=== PATIENT | male | born 1955 | race Caucasian/White ===

== ENCOUNTER 2019-08-08 05:52 | Day surgery (SDC) | payer MEDICARE, OTHER, SELFPAY ==
--- NOTE | 2019-08-08 06:10 | XR_ITS ---
WS: [id number] PORTABLE CHEST HISTORY: Preoperative for planned dialysis catheter removal COMPARISON: None available. Dialysis catheter present through the RIGHT subclavian vein. Numerous sternotomy sutures. The superio rmost 3 are fractured. Mild pulmonary congestion and hyperexpansion. No pleural effusion or pneumothorax. Cardiac size: Moderately enlarged cardiac silhouette. Mediastinum/Aorta: Mild atherosclerosis aorta. No osseous abnormality seen. XR/XR chest 1V portable [id number] IMPRESSION: 1. Mild pulmonary venous congestion and cardiomegaly. 2. RIGHT subclavian dialysis catheter in good position.
[2019-08-08] MEDS: sodium chloride 0.9% 1,000 ML 30 ML IV (06:15)
[2019-08-08 06:33] VITALS: BP 144/93; PULSE 83; RESP 20; TEMP 36.9; O2SAT 95
[2019-08-08 06:46] LABS: Glucose Point of Care 199 mg/dL (70-110)
[2019-08-08 06:49] LABS: Basophils % 0.2 %; Eosinophils # 0.1 10^3/uL (0.0-0.8); Eosinophils % 1.8 %; Hematocrit 31.3 % (42.0-52.0); Hemoglobin 9.9 g/dL (11.7-16.6); Lymphocytes # 1.3 10^3/uL (0.8-4.8); Lymphocytes % 19.1 %; Mean Corpuscular HGB Conc 31.6 g/dL (30.0-36.0); Mean Corpuscular Hemoglobin 31.9 pg (28.0-34.0); Mean Platelet Volume 9.5 fL (7.4-10.4); Monocytes # 0.9 10^3/uL (0.2-0.9); Monocytes % 13.4 %; Neutrophils # 4.3 10^3/uL (1.8-7.7); Nucleated Red Blood Cells % 0 %; Platelet Count 169 10^3/cmm (130-400); Red Cell Distribution Width 16.9 % (12.1-15.1); White Blood Count 6.6 10^3/uL (4.0-10.0)
[2019-08-08 06:58] LABS: INR 0.97 (0.8-1.2)
[2019-08-08 07:06] LABS: Anion Gap 23.6 (5-19); Blood Urea Nitrogen 67 mg/dL (8-23); Calcium 9.9 mg/dL (8.5-10.5); Carbon Dioxide 22 mmol/L (22-29); Chloride 98 mmol/L (98-107); Glomerular Filtration Rate 8.7 mL/min (90-130); Glucose 219 mg/dL (65-115); Osmolality Calculated 294 mOsm/kg (285-295); Potassium 4.6 mmol/L (3.5-5.1); Sodium 139 mmol/L (136-145)
--- NOTE | 2019-08-08 07:49 | P.HP_ITS ---
Providers/Chief Complaint Primary Care Provider: Bj Mccracken Chief Complaint: Split Jony Catheter Removal History of Present Illness Delonte Bahena is a 64 year old male with end-stage renal disease currently being dialyzed through a successful placed autogenous right upper extremity AV fistula. He has a right IJ tunneled dialysis catheter that is no longer required and removal has been requested. Review of Systems Narrative: He does complain of trouble sleeping since initiation of dialysis and also complains of nighttime leg cramps. 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 Mccracken, this coming Tuesday. Const: Denies: fever, chills, change in appetite, change in weight, fatigue or night sweats Eyes: Denies: change in vision or blurry vision ENMT: Denies: painful swallowing or hoarseness Card: Denies: chest pain, palpitations, irregular heart rhythm or edema Resp: Denies: shortness of breath or productive cough GI: Denies: abdominal pain, nausea, vomiting, difficulty swallowing, heart burn/indigestion or change in bowel habits : Denies: difficulty urinating, painful urination, urinary frequency, urinary urgency or urinary hesitancy Musc: Denies: extremity pain or extremity swelling Skin/Breast: Denies: rash Neuro: Denies: headache, numbness in extremities, weakness in extremities or changes in sensation Psych: Denies: anxiety, depression or change in appetite Endo: Denies: excessive urination, excessive thirst or cold intolerance Sohail/Lymph: Denies: easy bruising, easy bleeding, petechiae or enlarged lymph nodes Medications/Allergies Home Medications Medication Instructions Recorded Confirmed Last Taken Type Levemir FlexTouch U-100 Insuln 80 units SUBCUT BID 08/07/19 08/08/19 08/07/19 History Novolog Flexpen U-100 Insulin 18 units SUBCUT QID 08/07/19 08/08/19 08/07/19 History Plavix 75 mg PO BEDTIME 08/07/19 08/07/19 08/03/19 20:00 History Renvela See Rx Instructions .ROUTE .COMPLEX 08/07/19 08/08/19 08/07/19 History allopurinol 300 mg PO DAILY 08/07/19 08/08/19 08/02/19 History cyclosporine 100 mg PO BID 08/07/19 08/08/19 08/07/19 History famotidine 20 mg PO DAILY 08/07/19 08/08/19 08/07/19 History prednisone 5 mg PO DAILY 08/07/19 08/08/19 08/07/19 History rosuvastatin 20 mg PO DAILY 08/07/19 08/08/19 08/07/19 History torsemide 20 mg PO BID 08/07/19 08/08/19 08/07/19 History Allergies Allergy/AdvReac Type Severity Reaction Status Date / Time Iodinated Contrast Media Allergy Intermediate ADR-Itching Unverified 08/08/19 06:17 PFSH PFSH: Medical History (Updated 08/08/19 @ 07:52 by Pritesh Marroquin MD) Diabetes mellitus, type II Surgical History (Updated 08/08/19 @ 07:53 by Pritesh Marroquin MD) Hx of arteriovenostomy for renal dialysis Hx of kidney transplant Vital Signs Vitals Signs: Last Vital Signs Temp 98.4 F 08/08/19 06:33 Pulse 83 08/08/19 06:33 Resp 20 H 08/08/19 06:33 BP 144/93 08/08/19 06:33 Pulse Ox 95 08/08/19 06:33 Weight: Weight last 48 hrs Weight 250 lb Physical Exam Const: COMMON NORMALS: oriented x3 and alert ORIENTATION/CONSCIOUSNESS: Yes oriented to person, Yes oriented to place and Yes oriented to time HENMT: COMMON NORMALS: normocephalic HEAD & SCALP: normocephalic; no cranial bruits Neck/C-Spine: COMMON NORMALS: full ROM, supple, no JVD and no carotid bruits GENERAL: Yes trachea midline CERVICAL SPINE: Yes cervical ROM normal Chest: COMMONS NORMALS: inspection of chest normal (Tunneled right IJ catheter with exit of the anterior chest wall) and palpation of chest normal Resp: COMMON NORMALS: normal respiratory effort, no use of accessory muscles, clear to auscultation bilaterally and percussion normal EFFORT & INSPECTION: Yes able to speak in complete sentences and Yes symmetric chest movement AUSCULTATION: clear to auscultation bilaterally PERCUSSION: percussion normal Cardio: COMMON NORMALS: no JVD, regular rate, regular rhythm, S1 normal heart sound, S2 normal heart sound, no gallops, no murmurs, no rub and peripheral pul ses 2+ throughout JUGULAR VENOUS DISTENTION: no JVD RATE: regular rate RHYTHM: regular rhythm HEART SOUNDS: S1 normal and S2 normal PERIPHERAL PULSES: pulses 2+ throughout Extremity: OTHER: Well-functioning right autogenous radiocephalic fistula Neuro: COMMON NORMALS: oriented x3, no focal motor deficits and no sensory deficits noted SENSORIUM/ORIENTATION: Yes alert, Yes oriented to person, Yes oriented to place and Yes oriented to time GAIT: Yes normal gait A&P Assessment and plan (1) Hx of arteriovenostomy for renal dialysis: Well-functioning right upper extremity AV fistula. Tunneled right IJ dialysis catheter lower required. Removal is been requested. Details risk the procedure were carefully and frankly discussed with Mr. Bahena and his . Potential for bleeding complications, fracture of the catheter, chest wall injury or major vascular injury were frankly discussed. Proper consents have been provided for review and signature. Status: Acute Code(s): Z99.2 - Dependence on renal dialysis Coding Level of Care Code Acute Home Assessment Nurse for [facility] Fwd Exam Detailed Medical Decision Making Moderate Complexity Diagnoses Hx of arteriovenostomy for renal dialysis Z99.2 Time Spent (min) 25
--- NOTE | 2019-08-08 07:59 | P.ANESASSM_ITS ---
Pre-Anesthetic Assessment Pre-Anesthetic Assessment: Height/Weight: Height 1.8 m Weight 113.398 kg Temp Pulse Resp BP Pulse Ox 98.4 F 83 20 H 144/93 95 08/08/19 06:33 08/08/19 06:33 08/08/19 06:33 08/08/19 06:33 08/08/19 06:33 Preop Diagnosis: removal of dialysis catheter Proposed Procedure: Operation Date: 08/08/19 08:10 Proposed Procedures p Split Jony Catheter Removal(Not Applicable) - Pritesh Marroquin MD Last intake: Intake Last Liquid Date 08/07/19 Last Liquid Time 23:00 Last Solid Date 08/07/19 Last Solid Time 18:00 Social: Packs per day: 2 Pack years: 60+ Comment: quit Exam: Pre-Anes Outpt Exam: alert, oriented x 3, clear to auscultation bilaterally and regular rate & rhythm Pulmonary: Pulmonary: Sleep apnea CV/HEM: CV/HEM: [place] Comments: stents x13, most '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[employer] , 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 ' : : Chronic renal failure Comments: s/p renal transplant-quit working post back sx GI: GI: GERD Metabolic: Metabolic: DM Comments: 13y, normally 128-230 Musc/skel: Musc/skel: Lower Back Pain Anesthetic Plan: ASA status: 3 Anesthesia: MAC PFSH Anesthesia PFSH: Medical History (Updated 08/08/19 @ 07:52 by Pritesh Marroquin MD) Diabetes mellitus, type II Surgical History (Updated 08/08/19 @ 07:53 by Pritesh Marroquin MD) Hx of arteriovenostomy for renal dialysis Hx of kidney transplant Data Anesthesia CBC & Chem 7: 08/08/19 06:41 08/08/19 06:41 Other Labs: Laboratory Results - last 48 hr 08/08/19 08/08/19 08/08/19 06:39 06:41 06:41 WBC 6.6 RBC 3.10 L Hgb 9.9 L Hct 31.3 L MCV 101.0 H MCH 31.9 MCHC 31.6 RDW 16.9 H Plt Count 169 MPV 9.5 Neut % (Auto) 65.0 Lymph % (Auto) 19.1 [place] % (Auto) 13.4 Eos % (Auto) 1.8 Baso % (Auto) 0.2 Neut # (Auto) 4.3 Lymph # (Auto) 1.3 [place] # (Auto) 0.9 Eos # (Auto) 0.1 Baso # (Auto) 0.0 Nucleated RBC % (auto) 0 Nucleated RBCs # 0.0 PT 13.20 INR 0.97 Sodium Potassium Chloride Carbon Dioxide Anion Gap BUN Creatinine GFR Calculation Glucose POC Glucose 199 Calculated Osmolality Calcium 08/08/19 06:41 WBC RBC Hgb Hct MCV MCH MCHC RDW Plt Count MPV Neut % (Auto) Lymph % (Auto) [place] % (Auto) Eos % (Auto) Baso % (Auto) Neut # (Auto) Lymph # (Auto) [place] # (Auto) Eos # (Auto) Baso # (Auto) Nucleated RBC % (auto) Nucleated RBCs # PT INR Sodium 139 Potassium 4.6 Chloride 98 Carbon Dioxide 22 Anion Gap 23.6 H BUN 67 H Creatinine 6.5 H* GFR Calculation 8.7 L Glucose 219 H POC Glucose Calculated Osmolality 294 Calcium 9.9 Cardiac Studies: No Data to Display
[2019-08-08] MEDS: ceFAZolin 1,000 mg SDV 1000 MG IRRIGATION (08:32)
[2019-08-08] MEDS: lidocaine 1% INJ 20 mL SUBCUT (08:46)
--- NOTE | 2019-08-08 08:46 | PM.OP ---
Operative Report Date of procedure: August 08, 2019 Pre-op Diagnosis: removal of dialysis catheter Procedure Done: Right IJ dual-lumen dialysis catheter removal Pathology: none sent Surgeon: Pritesh Marroquin Anesthesia: MAC and Local (8 cc 1% lidocaine infiltrated locally) Complications: None Condition: stable Disposition: same day Brief History: 64-year-old gentleman with end-stage renal disease and a previously placed right IJ dialysis catheter. He now has a functioning right upper extremity AV fistula. The tunneled dialysis catheter is no longer required. Removal has been requested. Details risk of the procedure carefully and frankly discussed. Proper consents have been reviewed and signed. Procedure: The patient was carefully positioned sterilely prepped and draped after induction of IV conscious sedation. His right upper extremity was kept abducted to prevent any pressure being placed along the AV fistula. 1% lidocaine was infiltrated at the exit point of the tunnelled dialysis catheter along the right anterior chest wall. Blunt dissection was then carried out utilizing hemostat to expose the Velcro cuff with subsequent excision of all fibrotic and scar tissue. Utilizing direct in-line traction with direct pressure held in the subclavicular region at the insertion site, the catheter was removed intact without difficulty. Direct pressure was held at the base of the right side of the neck for greater than 20 minutes with the patient in reverse Trendelenburg position to confirm hemostasis. Sterile pressure dressing was applied. Equal breath sounds bilaterally. He was awakened from IV conscious sedation without difficulty. He was transported to the Outpatient Surgery department in stable condition. Right upper extremity AV fistula thrill was confirmed at completion of the procedure. I counseled with his at the completion of the procedure.
[2019-08-08 09:24] VITALS: BP 129/72; PULSE 84; RESP 18; TEMP 36.9; O2SAT 99
[2019-08-08 09:36] VITALS: BP 127/74; PULSE 83; RESP 18; O2SAT 99
== END 2019-08-08 09:43 | disposition home or self-care (01) ==
PROVIDERS: PCP Internal Medicine Nephrology; Visit Provider Thoracic Surgery (Cardiothoracic Vascular Surgery)
PROC: (CPT 36815; principal; 2019-08-08 08:10)
DX: Z49.01 Encounter for fitting and adjustment of extracorporeal dialysis catheter (principal); G47.30 Sleep apnea, unspecified; I25.2 Old myocardial infarction; Z95.1 Presence of aortocoronary bypass graft; K21.9 Gastro-esophageal reflux disease without esophagitis; E11.9 Type 2 diabetes mellitus without complications
CPT/HCPCS: 36590; 12345; 36415; 36416; 71045; 80048; 82962; 85025; 85610; J0690; J2001; J2704; J3010; J7030

== ENCOUNTER 2019-09-03 08:44 | Inpatient (IN) | payer MEDICARE, OTHER, SELFPAY ==
[2019-09-03] VITALS (21 sets, daily range): BP systolic 116–152; BP diastolic 66–93; PULSE 73–96; RESP 10–21; TEMP 36.4–37.1; O2SAT 94–100; BMI 35.9
--- NOTE | 2019-09-03 08:47 | ED_ITS ---
Entered by Amanda No, acting as scribe for Pb Prince DO HPI - General Adult General: Chief complaint: Cardiac Arrest/CPR Stated complaint: POST CODE Time Seen by Provider: 09/03/19 08:48 Source: patient and EMS Mode of arrival: EMS Limitations: no limitations History of Present Illness: HPI narrative: 64 yo male presents with post cardiac event. pt was at the dialysis clinic when he became unresponsive and they had to apply the AED pads, the AED advised them to shock the pt and they began CPR. per EMS when they arrived the pt was breath so they stopped CPR. pt denies any symptoms at this time. pt denied chest pain. 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) Location: chest Radiation: non-radiation Severity: moderate Quality: sharp Pain Consistency: constant Relieving factors: none Exacerbating factors: none Associated symptoms: Deny chest pain, malaise, nausea, rash or vomiting Treatments prior to arrival: other (EMS , dialysis clinic shocked the pt because defibilator went off ) Review of Systems General: Reports: 10 or more systems reviewed and unremarkable except in HPI and below Const: Denies: fever, chills, body aches, change in appetite, fatigue or malaise ENMT: Denies: throat pain, ear pain, nasal discharge or nasal congestion Card: Denies: chest pain, edema, shortness of breath on exertion or shortness of breath when lying down GI: Denies: abdominal pain, nausea, vomiting, vomiting blood, coffee grounds in vomit, diarrhea, constipation, bloating, blood in stool or black tarry stool : Denies: flank pain, painful urination, urinary frequency or urinary urgency Skin/Breast: Denies: rash or itching PFSH ED PFSH: Medical History Anemia 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 CAD (coronary artery disease) Diabetes mellitus, type II ESRD (end stage renal disease) Right inguinal hernia Surgical History H/O heart artery stent History of four vessel coronary artery bypass graft History of kidney transplant Hx laparoscopic cholecystectomy Hx of arteriovenostomy for renal dialysis Hx of cardiac cath Hx of kidney transplant Hx of lumbosacral spine surgery Family History Mother Dementia CAD (coronary artery disease) Aortic stenosis Father Chronic kidney disease (CKD) ESRD Cancer Prostate cancer Brother CAD (coronary artery disease) Diabetes Social History Smoking and tobacco status: former smoker Alcohol intake: current Alcohol intake frequency: holidays/special occasions only Physical Exam Const: COMMON NORMALS: no apparent distress GENERAL APPEARANCE: cooperative and comfortable ORIENTATION/CONSCIOUSNESS: Yes awake, Yes oriented to person, Yes oriented to place and Yes oriented to time HENMT: COMMON NORMALS: normocephalic, head/scalp atraumatic, hearing grossly normal bilaterally, external ears normal, EAC's normal, TM's normal bilaterally, nasal mucous membranes and turbinates normal, moist oral mucous membranes and oropharynx normal HEAD & SCALP: normocephalic and atraumatic NOSE: nasal mucous membranes and turbinates normal EXTERNAL EAR: Yes external ears normal EXTERNAL AUDITORY CANAL: EAC's normal TYMPANIC MEMBRANE: TM's normal bilaterally Eye: COMMON NORMALS: PERRL, EOMs intact bilaterally, conjunctivae normal and no scleral icterus CONJUNCTIVA: Yes conjunctivae normal PUPIL: Yes PERRL Neck/C-Spine: COMMON NORMALS: full ROM, no lymphadenopathy, supple and no JVD Lymph: LYMPHATIC: no lymphadenopathy noted and no lymphedema noted Cardio: COMMON NORMALS: no JVD GI: COMMON NORMALS: soft to palpation and no hepatosplenomegaly AUSCULTATION: Yes normoactive bowel sounds PALPATION: Yes soft, No tender, No guarding and Yes no hepatosplenomegaly Extremity: COMMON NORMALS: normal to inspection, normal capillary refill, no clubbing, cyanosis or edema, no calf tenderness and no pedal edema Neuro: SENSORIUM/ORIENTATION: Yes oriented to person, Yes oriented to place and Yes oriented to time Skin: COMMON NORMALS: no rashes or lesions noted GENERAL SKIN EXAM: no rashes or lesions noted Course Vital Signs: Vital signs: Vital Signs Temperature 97.7 F 09/05/19 12:17 Pulse Rate 78 09/05/19 12:17 Respiratory Rate 15 09/05/19 12:17 Blood Pressure 103/66 09/05/19 12:17 Pulse Oximetry 99 09/05/19 12:17 MDM - General Adult MDM Narrative: Medical decision making narrative: Patient had a single event in the dialysis clinic. It was immediately recognized and AED was applied and he was defibrillated since then he is done well he has been awake and alert the entire time in the emergency room. Reviewed lab findings with him he will need to be admitted and evaluated by cardiology likely will need cardiac catheterization. Lab Data: Labs: Lab Results 09/03/19 09/03/19 09/03/19 Range/Units 08:55 08:55 08:55 WBC 10.4 H (4.0-10.0) 10^3/ uL RBC 3.34 L (4.1-5.3) 10^6/u L Hgb 10.9 L (11.7-16.6) g/dL Hct 35.1 L (42.0-52.0) % MCV 105.1 H (80-94) fL MCH 32.6 (28.0-34.0) pg MCHC 31.1 (30.0-36.0) g/dL RDW 16.8 H (12.1-15.1) % Plt Count 235 (130-400) 10^3/c mm MPV 9.8 (7.4-10.4) fL Neut % (Auto) 65.7 % Lymph % (Auto) 22.7 % [place] % (Auto) 9.1 % Eos % (Auto) 1.7 % Baso % (Auto) 0.4 % Neut # (Auto) 6.8 (1.8-7.7) 10^3/u L Lymph # (Auto) 2.4 (0.8-4.8) 10^3/u L [place] # (Auto) 1.0 H (0.2-0.9) 10^3/u L Eos # (Auto) 0.2 (0.0-0.8) 10^3/u L Baso # (Auto) 0.0 (0.0-0.1) 10^3/u L Nucleated RBC % (a uto) 0 % Nucleated RBCs # 0.0 /100WBC Sodium 140 (136-145) mmol/L Potassium 4.1 (3.5-5.1) mmol/L Chloride 97 L (98-107) mmol/L Carbon Dioxide 24 (22-29) mmol/L Anion Gap 23.1 H (5-19) BUN 26 H (8-23) mg/dL Creatinine 3.8 H (0.7-1.2) mg/dL GFR Calculation 16.2 L (90-130) mL/min Glucose 204 H (65-115) mg/dL Calculated Osmolal ity 293 (285-295) mOsm/k g Calcium 9.9 (8.5-10.5) mg/dL Total Bilirubin 0.4 (0.15-1.2) mg/dL AST 136 H (0-40) U/L ALT 68 H (0-41) U/L Alkaline Phosphata se 203 H (40-130) IU/L Troponin T Baselin e (0-15) ng/mL Troponin T 120 Min shruthi (0-15) ng/mL Delta Troponin T (0-10) ABS# Total Protein 7.7 (6.6-8.7) g/dL Albumin 3.9 (3.5-5.2) g/dL Globulin 3.8 (1.3-4.6) g/dL Lipase 33 (13-60) U/L Serum Ketones Negative (Negative) Hep Bs Antigen (Nonreactive) Hepatitis C Antibo dy (Nonreactive) 09/03/19 09/03/19 09/03/19 Range/Units 08:55 08:55 08:55 WBC (4.0-10.0) 10^3/ uL RBC (4.1-5.3) 10^6/u L Hgb (11.7-16.6) g/dL Hct (42.0-52.0) % MCV (80-94) fL MCH (28.0-34.0) pg MCHC (30.0-36.0) g/dL RDW (12.1-15.1) % Plt Count (130-400) 10^3/c mm MPV (7.4-10.4) fL Neut % (Auto) % Lymph % (Auto) % [place] % (Auto) % Eos % (Auto) % Baso % (Auto) % Neut # (Auto) (1.8-7.7) 10^3/u L Lymph # (Auto) (0.8-4.8) 10^3/u L [place] # (Auto) (0.2-0.9) 10^3/u L Eos # (Auto) (0.0-0.8) 10^3/u L Baso # (Auto) (0.0-0.1) 10^3/u L Nucleated RBC % (a uto) % Nucleated RBCs # /100WBC Sodium (136-145) mmol/L Potassium (3.5-5.1) mmol/L Chloride (98-107) mmol/L Carbon Dioxide (22-29) mmol/L Anion Gap (5-19) BUN (8-23) mg/dL Creatinine (0.7-1.2) mg/dL GFR Calculation (90-130) mL/min Glucose (65-115) mg/dL Calculated Osmolal ity (285-295) mOsm/k g Calcium (8.5-10.5) mg/dL Total Bilirubin (0.15-1.2) mg/dL AST (0-40) U/L ALT (0-41) U/L Alkaline Phosphata se (40-130) IU/L Troponin T Baselin e 269 H* (0-15) ng/mL Troponin T 120 Min shruthi (0-15) ng/mL Delta Troponin T (0-10) ABS# Total Protein (6.6-8.7) g/dL Albumin (3.5-5.2) g/dL Globulin (1.3-4.6) g/dL Lipase (13-60) U/L Serum Ketones (Negative) Hep Bs Antigen Non-reactive (Nonreactive) Hepatitis C Antibo dy Non-reactive (Nonreactive) 09/03/19 Range/Units 10:45 WBC (4.0-10.0) 10^3/ uL RBC (4.1-5.3) 10^6/u L Hgb (11.7-16.6) g/dL Hct (42.0-52.0) % MCV (80-94) fL MCH (28.0-34.0) pg MCHC (30.0-36.0) g/dL RDW (12.1-15.1) % Plt Count (130-400) 10^3/c mm MPV (7.4-10.4) fL Neut % (Auto) % Lymph % (Auto) % [place] % (Auto) % Eos % (Auto) % Baso % (Auto) % Neut # (Auto) (1.8-7.7) 10^3/u L Lymph # (Auto) (0.8-4.8) 10^3/u L [place] # (Auto) (0.2-0.9) 10^3/u L Eos # (Auto) (0.0-0.8) 10^3/u L Baso # (Auto) (0.0-0.1) 10^3/u L Nucleated RBC % (a uto) % Nucleated RBCs # /100WBC Sodium (136-145) mmol/L Potassium (3.5-5.1) mmol/L Chloride (98-107) mmol/L Carbon Dioxide (22-29) mmol/L Anion Gap (5-19) BUN (8-23) mg/dL Creatinine (0.7-1.2) mg/dL GFR Calculation (90-130) mL/min Glucose (65-115) mg/dL Calculated Osmolal ity (285-295) mOsm/k g Calcium (8.5-10.5) mg/dL Total Bilirubin (0.15-1.2) mg/dL AST (0-40) U/L ALT (0-41) U/L Alkaline Phosphata se (40-130) IU/L Troponin T Baselin e (0-15) ng/mL Troponin T 120 Min shruthi 336.2 H (0-15) ng/mL Delta Troponin T 67.2 H* (0-10) ABS# Total Protein (6.6-8.7) g/dL Albumin (3.5-5.2) g/dL Globulin (1.3-4.6) g/dL Lipase (13-60) U/L Serum Ketones (Negative) Hep Bs Antigen (Nonreactive) Hepatitis C Antibo dy (Nonreactive) Imaging Data^: CXR: Radiologist's impression: [address] [address] XRay Report Signed Patient: Delonte Bahena RUnit #: [id number] : 6Acct#:[id number] Age/Sex: 64 / MADM Date: 09/03/19 Loc: ERRoom/Bed: Attending Dr: Ordering Provider/Ordering MD: Pb Prince DO Date of Service: 09/03/19 Procedure(s): XR chest 1V portable [id number] Accession Number(s): [id number] Report Number: [id number] PROCEDURE INFORMATION: Exam: XR Chest, 1 View Exam date and time: 09/03/2019 9:04 AM Age: 64 years old Clinical indication: Cough and dyspnea; Prior surgery; Surgery date: 6+ months; Surgery type: Cardiac, date not provided; Additional info: Dyspnea/cough TECHNIQUE: Imaging protocol: XR of the chest Views: Frontal portable upright view of the chest. COMPARISON: CR XR chest 1V portable [id number] 08/08/2019 6:12 AM FINDINGS: Tubes, catheters and devices: EKG leads are present overlying the chest. Lungs: Increased left basilar pulmonary subsegmental atelectasis. The pulmonary vasculature is normal. The lungs are otherwise peripherally clear bilaterally. Pleural space: No pleural effusion. No pneumothorax. Heart/Mediastinum: The heart is normal in size and contour. Mediastinum: Stable. Bones/joints: The patient is status post median sternotomy with fractured first 3 3rd sternal cerclage wires. XR/XR chest 1V portable [id number] IMPRESSION: Increased left basilar pulmonary subsegmental atelectasis. Dictated By:Ant Ham MD Signed By:Ant Ham MDSigned Date/Time:09/03/19 0917 Discharge Plan Discharge Patient Disposition: Left Against Medical Advice Admit Provider: Elsie Persaud Clinical Impression: Cardiac arrest, CAD (coronary artery disease), ESRD (end stage renal disease) Condition: Stable Discharge Orders: Discharge Order (Routine); Ordered 09/05/19 Ordered By: Elsie Persaud Discharge Diet: Usual diet, Cardiac and Diabetic Discharge Activity: Increase activity as tolerated and Limit activity as instructed Interventions: ED Discharge Assessment Last Done: 09/03/19 14:28 Discharge Date/Time: 09/03/19 14:51 Coding Level of Care Code ED Conditioner Tumbler Operator for Chg Fwd Exam Comprehensive The documentation recorded by the Oneal perdomo Bridget Annette, accurately reflects the service I personally performed and the decisions made by Niki mann Curtis L, DO Sep 03, 2019 08:44
--- NOTE | 2019-09-03 08:50 | ECG_ITS ---
Measurements Intervals [place] Rate: 94 P: 33 DC: 155 QRS: -2 QRSD: 91 T: 49 QT: 362 QTc: 455 SINUS RHYTHM POSSIBLE ANTERIOR MYOCARDIAL INFARCTION , PROBABLY OLD [30 ms Q WAVE IN V3/V4, OR R < 0.2 mV IN V4] ST DEPRESSION, CONSIDER SUBENDOCARDIAL INJURY [0.1+ mV ST DEPRESSION] No previous ECG available for comparison Electronically Signed On 09-03-2019 19:22:38 CDT by Edward Zimmerman M.D. [email or web address]
[2019-09-03 09:02] LABS: Basophils % 0.4 %; Eosinophils # 0.2 10^3/uL (0.0-0.8); Eosinophils % 1.7 %; Hematocrit 35.1 % (42.0-52.0); Hemoglobin 10.9 g/dL (11.7-16.6); Lymphocytes # 2.4 10^3/uL (0.8-4.8); Lymphocytes % 22.7 %; Mean Corpuscular HGB Conc 31.1 g/dL (30.0-36.0); Mean Corpuscular Hemoglobin 32.6 pg (28.0-34.0); Mean Corpuscular Volume 105.1 fL (80-94); Mean Platelet Volume 9.8 fL (7.4-10.4); Monocytes % 9.1 %; Neutrophils # 6.8 10^3/uL (1.8-7.7); Neutrophils % 65.7 %; Nucleated Red Blood Cells % 0 %; Platelet Count 235 10^3/cmm (130-400); Red Blood Count 3.34 10^6/uL (4.1-5.3); Red Cell Distribution Width 16.8 % (12.1-15.1); White Blood Count 10.4 10^3/uL (4.0-10.0)
--- NOTE | 2019-09-03 09:11 | PC.NURSE ---
stained glass installer, pulse oximeter and NIBP monitor placed on patient; auto roller- Lead I, II and III; monitor alarms on. Patient gowned. Zoll monitor/defibrillator connect to patient via combo pads. QRS audible beep activated. Monitor placed outside of room.
[2019-09-03 09:14] LABS: Ketone (Acetest) Serum Negative (Negative)
[2019-09-03 09:21] LABS: Alanine Aminotransferase 68 U/L (0-41); Albumin Level 3.9 g/dL (3.5-5.2); Alkaline Phosphatase 203 IU/L (40-130); Anion Gap 23.1 (5-19); Blood Urea Nitrogen 26 mg/dL (8-23); Calcium 9.9 mg/dL (8.5-10.5); Carbon Dioxide 24 mmol/L (22-29); Chloride 97 mmol/L (98-107); Creatinine Clr Calc Pharmacy 25.0923; Globulin 3.8 g/dL (1.3-4.6); Glomerular Filtration Rate 16.2 mL/min (90-130); Glucose 204 mg/dL (65-115); Lipase 33 U/L (13-60); Osmolality Calculated 293 mOsm/kg (285-295); Potassium 4.1 mmol/L (3.5-5.1); Sodium 140 mmol/L (136-145); Total Bilirubin 0.4 mg/dL (0.15-1.2); Total Protein 7.7 g/dL (6.6-8.7)
[2019-09-03 09:36] LABS: Aspartate Amino Transferase 136 U/L (0-40); Troponin(5th) Baseline 269 ng/mL (0-15)
--- NOTE | 2019-09-03 10:50 | ECG_ITS ---
Measurements Intervals [place] Rate: 87 P: 33 SC: 154 QRS: 14 QRSD: 96 T: 50 QT: 377 QTc: 455 SINUS RHYTHM ANTEROSEPTAL MYOCARDIAL INFARCTION , OF INDETERMINATE AGE [40+ ms Q WAVE IN V1-V4] No previous ECG available for comparison Electronically Signed On 09-03-2019 19:28:49 CDT by Edward Zimmerman M.D. [email or web address]
[2019-09-03 11:30] LABS: Troponin 5 2HR 336.2 ng/mL (0-15); Troponin 5 2HR Delta 67.2 ABS# (0-10)
--- NOTE | 2019-09-03 11:57 | PM.HP ---
Providers/Chief Complaint Admitting Physician: Elsie Persaud DO Chief Complaint: POST CODE History of Present Illness Delonte Bahena is a 64 year old male with a past medical history of diabetes, hypertension, coronary artery disease and end-stage renal disease on dialysis that presented to the emergency department today after cardiac event in dialysis clinic. Patient reported that he was finishing dialysis when he began to feel diaphoretic, sweaty and clammy. He reports that the last thing he remembers before he woke up in the ambulance. It was reported that patient went into cardiac arrest, AED was applied and shock was advised. Shock provided and ROSC obtained. Patient remains alert and oriented x3 at this time, denies any chest pain or shortness of breath, denies any fevers or chills, no cough or sputum production. Patient reports that on Tuesday he was out working in his shop when he had an episode of chest pain, felt as a burning sensation in the center of his chest, he sat down for a minute or 2 and it gradually resolved. He reports a strong history of heart disease with prior CABG and stenting. 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 He states his last cardiac cath was 3 to 4 years ago. Patient did note some nausea and heartburn related symptoms last night and reported some nausea that occurred this morning, denied any chest pain. Patient was seen and evaluated in the emergency department and admitted for further evaluation Review of Systems Const: Denies: fever or chills Eyes: Denies: change in vision ENMT: Denies: nasal congestion Card: Denies: chest pain, palpitations or edema Resp: Denies: shortness of breath, productive cough or coughing up blood GI: Reports: nausea; Denies: abdominal pain, vomiting, diarrhea, constipation, blood in stool or black tarry stool : Reports: other (Decreased urine output due to dialysis); Denies: painful urination or blood in urine Musc: Denies: extremity pain or muscle cramps Skin/Breast: Denies: rash or new lesion Neuro: Denies: headache or dizziness Psych: Denies: anxiety or depression Endo: Denies: excessive urination or hot flashes Sohail/Lymph: Denies: easy bruising or easy bleeding Medications/Allergies Home Medications Medication Instructions Recorded Confirmed Last Taken Type aspirin [Aspir-81] 81 mg PO DAILY 0309/03/19 09/02/19 History aspirin-sod bicarb-citric acid 1 tab PO DAILY PRN 09/03/19 09/03/19 09/03/19 04:00 History [Huan Original] hydrocodone-acetaminophen [[place]] 1 tab PO QID PRN 09/03/19 09/03/19 09/03/19 History multivitamin [Multiple Vitamins] 1 tab PO DAILY 09/03/19 09/03/19 Unknown History Allergies Allergy/AdvReac Type Severity Reaction Status Date / Time Iodinated Contrast Media Allergy Intermediate ADR-Itching Verified 09/03/19 08:54 PFSH Acute PFSH: Medical History (Updated 09/03/19 @ 14:48 by lEsie Persaud DO) Anemia 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 CAD (coronary artery disease) Diabetes mellitus, type II ESRD (end stage renal disease) Right inguinal hernia Surgical History (Updated 09/03/19 @ 14:44 by Elsie Persaud DO) H/O heart artery stent History of four vessel coronary artery bypass graft History of kidney transplant Hx laparoscopic cholecystectomy Hx of arteriovenostomy for renal dialysis Hx of cardiac cath Hx of kidney transplant Hx of lumbosacral spine surgery Family History (Updated 09/03/19 @ 14:45 by Elsie Persaud DO) Mother Dementia CAD (coronary artery disease) Aortic stenosis Father Chronic kidney disease (CKD) ESRD Cancer Prostate cancer Brother CAD (coronary artery disease) Diabetes Social History (Updated 09/03/19 @ 14:45 by Elsie Persaud DO) Smoking and tobacco status: former smoker Alcohol intake: current Alcohol intake frequency: holidays/special occasions only Substance/Drug Use: never Vitals/I&O/Wt Last Vital Signs Temp 97.5 F L 09/03/19 08:45 Pulse 78 09/03/19 08:45 Resp 16 09/03/19 08:45 BP 152/93 09/03/19 08:45 Pulse Ox 97 09/03/19 08:45 Weight last 48 hrs Weight 113.398 kg Physical Exam Const: COMMON NORMALS: oriented x3 and alert GENERAL APPEARANCE: cooperative ORIENTATION/CONSCIOUSNESS: Yes awake, Yes oriented to person, Yes oriented to place and Yes oriented to time HENMT: COMMON NORMALS: normocephalic and head/scalp atraumatic HEAD & SCALP: normocephalic and atraumatic Eye: COMMON NORMALS: PERRL PUPIL: Yes PERRL Neck/C-Spine: COMMON NORMALS: supple GENERAL: Yes normal visual inspection Resp: COMMON NORMALS: normal respiratory effort and clear to auscultation bilaterally EFFORT & INSPECTION: Yes able to speak in complete sentences AUSCULTATION: clear to auscultation bilaterally, no rhonchi and no wheezes Cardio: COMMON NORMALS: regular rate, regular rhythm and no murmurs RATE: regular rate RHYTHM: regular rhythm GI: COMMON NORMALS: soft to palpation and non-tender INSPECTION: No abdominal distension AUSCULTATION: Yes normoactive bowel sounds PALPATION: Yes soft Extremity: COMMON NORMALS: no clubbing, cyanosis or edema and no calf tenderness Neuro: COMMON NORMALS: oriented x3, CN's II-XII intact bilaterally, moves all extremities and no focal motor deficits SENSORIUM/ORIENTATION: Yes alert, Yes oriented to person, Yes oriented to place and Yes oriented to time SPEECH: speech normal Psych: COMMON NORMALS: mental status grossly normal and cooperative Skin: COMMON NORMALS: no rashes or lesions noted GENERAL SKIN EXAM: no rashes or lesions noted Data : 09/03/19 08:55 09/03/19 08:55 CXR: I personally reviewed and interpreted this imaging study as follows: Radiologist's impression: FINDINGS: Tubes, catheters and devices: EKG leads are present overlying the chest. Lungs: Increased left basilar pulmonary subsegmental atelectasis. The pulmonary vasculature is normal. The lungs are otherwise peripherally clear bilaterally. Pleural space: No pleural effusion. No pneumothorax. Heart/Mediastinum: The heart is normal in size and contour. Mediastinum: Stable. Bones/joints: The patient is status post median sternotomy with fractured first 3 3rd sternal cerclage wires. XR/XR chest 1V portable [id number] IMPRESSION: Increased left basilar pulmonary subsegmental atelectasis. A&P Assessment and plan (1) Ventricular dysrhythmia: Reported following dialysis today. AED immediately placed and shock advised, shock delivered and ROSC achieved Brought in by EMS to the ED Admit and placed on telemetry Serial EKG and troponin, troponin slightly elevated however patient does have end-stage renal disease and had shock delivered. Cardiology consultation, Dr. Estrada. Appreciate recommendations and assistance in patient's care Echocardiogram ordered for further evaluation and treatment Patient reports history of four-vessel CABG and multiple stents. Followed by Dr. Longoria at [facility] in [place] We will check TSH, mag, Phos Status: Acute Code(s): I49.9 - Cardiac arrhythmia, unspecified (2) Anemia: Likely secondary to chronic disease, no evidence of any active bleeding Status: Acute Code(s): D64.9 - Anemia, unspecified (3) Diabetes mellitus, type II: Insulin-dependent Patient is on Levemir 80 units twice daily, will decrease to 50 units twice daily as do not wish for patient to become hypoglycemic. Will place on sliding scale insulin Status: Acute Code(s): E11.9 - Type 2 diabetes mellitus without complications (4) CAD (coronary artery disease): Followed by Dr. Craft at [facility] in [place] History of CABG x4 vessel and reported history of 13 stents Remains on aspirin, statin, not on beta-aimee at this time Status: Acute Code(s): I25.10 - Atherosclerotic heart disease of [place] coronary artery without angina pectoris (5) ESRD (end stage renal disease): On dialysis Tuesday and Tuesday Nephrology consulted, appreciate recommendations and assistance in patient's care. No indication for urgent dialysis at this time Status: Acute Code(s): N18.6 - End stage renal disease Additional A&P Information Patient with a history of renal transplant approximately 24 years ago DVT prophylaxis: Heparin Diet: Cardiac, carb consist, renal dialysis diet CODE STATUS: Full code Attestations Medical Necessity Statement*: Patient requires hospitalization status post ventricular dysrhythmia requiring CPR and AED placement with shock advised and delivered. Expected stay greater than 2 midnights Coding Level of Care Code Acute Process Improvement Engineer for Chg Fwd Diagnoses Ventricular dysrhythmia I49.9 Anemia D64.9 Diabetes mellitus, type II E11.9 CAD (coronary artery disease) I25.10 ESRD (end stage renal disease) N18.6
--- NOTE | 2019-09-03 14:31 | USCV_ITS ---
Delonte Bahena Age: 64 Gender: M : 1955 Exam Date: 09/03/2019 15:25 Ordering Phys: Eslie Persaud DO Technologist: Anastacia Benoit [place] [facility] [place]: CAD BP: 129 / 76 HR: 78 Rhythm: Sinus Technical Quality: Suboptimal MEASUREMENTS (Male / Female) Normal Values 2D ECHO LV Diastolic Diameter PLAX 4.3 cm 4.2 - 5.9 / 3.9 - 5.3 cm LV Systolic Diameter PLAX 3.8 cm LV Chamber Size 3.9 cm IVS Diastolic Thickness 1.1 cm 0.6 - 1.0 / 0.6 - 0.9 cm IVS Systolic Thickness 1.4 cm LVPW Diastolic Thickness 2.0 cm 0.6 - 1.0 / 0.6 - 0.9 cm LVPW Systolic Thickness 2.4 cm RV Chamber Size 2.3 cm LVOT Diameter 2.1 cm LV Ejection Fraction 2D Teich 25.5 % LV Ejection Fraction 2C AL 32.5 % LA Diameter 4.9 cm LA Width 3.0 cm LA Height 4.4 cm RA Width 2.8 cm RA Height 3.8 cm Aorta at Sinotubular Diameter 3.0 cm M-MODE LV Diastolic Diameter MM 5.8 cm 4.2 - 5.9 / 3.9 - 5.3 cm LV Systolic Diameter MM 5.5 cm LV Ejection Fraction MM Teich 12.5 % IVS Diastolic Thickness MM 1.2 cm 0.6 - 1.0 / 0.6 - 0.9 cm IVS Systolic Thickness MM 1.4 cm LVPW Diastolic Thickness MM 1.0 cm 0.6 - 1.0 / 0.6 - 0.9 cm LVPW Systolic Thickness MM 1.1 cm Aortic Annulus Diameter 3.4 cm LA Ao Ratio MM 1.4 MV E Point Septal Separation 1.2 cm DOPPLER AV Peak Velocity 149.0 cm/s LVOT Peak Velocity 95.0 cm/s AV Area Cont Eq vti 2.6 cm squared AV Area Cont Eq pk 2.2 cm squared MV Area PHT 3.6 cm squared Mitral E to A Ratio 1.1 MV E' Velocity 12.0 cm/s Mitral E to MV E' Ratio 7.7 Mitral E to LV E' Lateral Ratio 7.5 Mitral E to LV E' Septal Ratio 8.1 TR Peak Velocity 219.0 cm/s TR Peak Gradient 19.2 mmHg TV Peak E Velocity 78.0 cm/s Right Atrial Pressure 3.0 mmHg Pulmonary Artery Systolic Pressu 22.2 mmHg PV Peak Velocity 72.0 cm/s RV Acceleration Time 0.2 s RV Ejection Time 0.3 s RV AcT/ET 0.5 FINDINGS Left Ventricle Normal left ventricular cavity size. Normal left ventricular systolic function. Moderate left ventricular hypertrophy of concentric type.left ventricular ejection fraction is estimated at 55%. . Grade II/IV diastolic dysfunction, moderately elevated filling pressures. Right Ventricle The right ventricle is normal in size and function. Right Atrium The right atrium is normal in size. Left Atrium The left atrium is normal in size. Mitral Valve Moderately thickened mitral valve. No mitral valve stenosis. No mitral valve regurgitation. Aortic Valve Moderate aortic valve calcification. No aortic valve stenosis. No aortic valve regurgitation. Tricuspid Valve Structurally normal tricuspid valve without significant stenosis or regurgitation. Pulmonary artery systolic pressure is normal. Pulmonic Valve Structurally normal pulmonic valve without significant stenosis. There is no pulmonic regurgitation. Pericardium Normal pericardium without effusion. Aorta Normal ascending aorta dimension. CONCLUSIONS Please note that this is suboptimal image quality study therefore assessment of left ventricle ejection fraction may not be accurate. Wall motion abnormality cannot be ruled out. 1-Normal left ventricular cavity size. Normal left ventricular systolic function. Moderate left ventricular hypertrophy of concentric type.left ventricular ejection fraction is estimated at 55%. . Grade II/IV diastolic dysfunction, moderately elevated filling pressures. 2-No significant valve abnormalities. 3-There is no pericardial effusion. 4-Pulmonary artery systolic pressure is within normal limits. 5-Right atrial pressure is around __ mm of mercury. 6-There are no prior echocardiogram studies to compare. Veronica Estrada MD (Electronically Signed) Final Date: 03 September 2019 19:00 S
--- NOTE | 2019-09-03 14:50 | ECG_ITS ---
Measurements Intervals [place] Rate: 86 P: 39 RI: 159 QRS: 18 QRSD: 96 T: 68 QT: 366 QTc: 438 SINUS RHYTHM ANTEROSEPTAL MYOCARDIAL INFARCTION , OF INDETERMINATE AGE [40+ ms Q WAVE IN V1-V4] No previous ECG available for comparison Electronically Signed On 09-03-2019 19:29:34 CDT by Edward Zimmerman M.D. [id number]
[2019-09-03 15:07] LABS: Phosphorus 4.3 mg/dL (2.5-4.5)
[2019-09-03 15:16] LABS: Troponin 5 6HR 696.8 ng/mL (0-15); Troponin 5 6HR Delta 427.8 ng/L (0-12)
[2019-09-03 15:18] LABS: Thyroid Stimulating Hormone 0.71 uIU/mL (0.27-4.20)
--- NOTE | 2019-09-03 15:25 | PM.CONSULT ---
Providers/Reason For Consult Consulting Physican/Specialty*: phyllis gonzalez md Reason for Consult*: ESRD crae Attending Physician: Elsie Persaud DO Primary Care Provider: Bj Mccracken History of Present Illness History of Present Illness Delonte Bahena is a 64 year old male s/p cardiac arrest at end of HD today. AED shocked him and return of pulse. h/o ESRD on HD MWF. He states he was born w/ one kidney and had a renal transplant over 20 yrs ago. In September 2018 he had back surgery that was complicated by hypotension and CARISSA. he has since been dialysis dependent. co- morbidities includeHTN, DM, CAD s/p CABG. He c/o chest pain/ heartburn on Sat for a couple of minutes. Review of Systems General: Reports: 10 or more systems reviewed and unremarkable except in HPI and below Narrative: weak, denies sob. denies cp. poor vision. + weight gain over last year. + constipation, +ABBOTT. + weak. no swelling. no darden. Meds/Allergies Home Medications and Allergies Home Medications Medication Instructions Recorded Confirmed Type Levemir FlexTouch U-100 Insuln 80 units SUBCUT BID 08/07/19 09/03/19 History Novolog Flexpen U-100 Insulin See Rx Instructions .ROUTE .COMPLEX 08/07/19 09/03/19 History Plavix 75 mg PO BEDTIME 08/07/19 09/03/19 History Renvela See Rx Instructions .ROUTE .COMPLEX 08/07/19 09/03/19 History allopurinol 300 mg PO DAILY 08/07/19 09/03/19 History cyclosporine 100 mg PO BID 08/07/19 09/03/19 History famotidine 20 mg PO DAILY 08/07/19 09/03/19 History prednisone 5 mg PO DAILY 08/07/19 09/03/19 History rosuvastatin 20 mg PO DAILY 08/07/19 09/03/19 History torsemide 40 mg PO DAILY 08/07/19 09/03/19 History aspirin-sod bicarb-citric acid 1 tab PO DAILY PRN 09/03/19 09/03/19 History [[place] Original] hydrocodone-acetaminophen [[place]] 1 tab PO QID PRN 09/03/19 09/03/19 History multivitamin [Multiple Vitamins] 1 tab PO DAILY 09/03/19 09/03/19 History Allergies Allergy/AdvReac Type Severity Reaction Status Date / Time Iodinated Contrast Media Allergy Intermediate ADR-Itching Verified 09/03/19 08:54 PFSH Acute PFSH: Medical History (Updated 09/03/19 @ 14:48 by Elsie Persaud DO) Anemia 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 CAD (coronary artery disease) Diabetes mellitus, type II ESRD (end stage renal disease) Right inguinal hernia Surgical History (Updated 09/03/19 @ 14:44 by Elsie Persaud DO) H/O heart artery stent History of four vessel coronary artery bypass graft History of kidney transplant Hx laparoscopic cholecystectomy Hx of arteriovenostomy for renal dialysis Hx of cardiac cath Hx of kidney transplant Hx of lumbosacral spine surgery Family History (Updated 09/03/19 @ 14:45 by Elsie Persaud DO) Mother Dementia CAD (coronary artery disease) Aortic stenosis Father Chronic kidney disease (CKD) ESRD Cancer Prostate cancer Brother CAD (coronary artery disease) Diabetes Social History (Updated 09/03/19 @ 14:45 by Elsie Persaud DO) Smoking and tobacco status: former smoker Alcohol intake: current Alcohol intake frequency: holidays/special occasions only Substance/Drug Use: never Vitals/I&O/Wt Last Vital Signs Temp 97.5 F L 09/03/19 08:45 Pulse 80 09/03/19 14:28 Resp 16 09/03/19 14:28 BP 125/79 09/03/19 14:28 Pulse Ox 99 09/03/19 14:28 Weight last 48 hrs Weight 113.398 kg Physical Exam Narrative: EXAM NARRATIVE: obese, comfortable in bed, NARD vss heent- nc/at, eomi, anicteric neck- supple lungs - cta b/l heart reg, no rub abd soft, +BS ext RUE AVF w/ thrill and bruit no leg edema neuro- a,a, o x 3 A&P Additional A&P Information 1. CAD, + trop. s/p cardiac arrest at end of dialysis - as per cardiology 2. ESRD- HD MWF -check pth and phos 3. 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 if not, cut dose in half 4. bp well controlled 5. DM control 6. monitor tsh 7. gout- check uric acid level- dec allopurinol to 100 mg daily w/ESRD Consult Attestations Medical Necessity Statement: ESRD, DM, w/ cardic arrest at HD today Time Spent in Patient Care: Greater than 35 minutes Coding Level of Care Code Acute Import Export Agent for Kaycee Dejesus
[2019-09-03 17:02] LABS: Add Urine Microscopic? YES; Bilirubin Urine Neg (NEGATIVE); Blood Urine Neg (Negative); Glucose Urine UA 2+ (Normal); Ketones Urine Negative (Negative); Leukocyte Esterase Urine Negative (Negative); Nitrate Urine Negative (Negative); Protein Urine Trace (Negative); Sulfosalicylic Acid Urine Positive; Urine Appearance Clear (CLEAR); Urine Color Yellow (Yellow); Urobilinogen Urine Norm (Negative); pH Urine 8 (5-7)
[2019-09-03 17:04] LABS: WBC Urine RARE /hpf (0-5)
[2019-09-03 17:05] LABS: Add Urine Culture? No; Bacteria Urine TRACE
[2019-09-03 17:16] LABS: Glucose Point of Care 188 mg/dL (70-110)
[2019-09-03] MEDS: heparin 5,000 unit/mL INJ 1 mL 5000 UNIT SUBCUT ×2 (17:34→20:49)
[2019-09-03] MEDS: sevelamer 800 mg Tablet PO (17:36)
[2019-09-03 18:36] LABS: Hepatitis B Surface Antigen. Non-Reactive (Nonreactive)
[2019-09-03 18:41] LABS: Hepatitis C Virus Antibody Non-Reactive (Nonreactive)
--- NOTE | 2019-09-03 19:47 | P.CONIM_ITS ---
Providers/Reason For Consult Consulting Physican/Specialty*: Cardiology Reason for Consult*: Status post cardiac arrest requiring defibrillation Requesting Physcian: Dr.Sam Persaud Attending Physician: Elsie Persaud DO Primary Care Provider: Bj Mccracken History of Present Illness History of Present Illness Delonte Bahena is a 64 year old male Past medical history significant for end-stage renal disease, History of extensive ischemic cardiomyopathy with multiple stents in the past and history of coronary artery bypass surgery almost 15 years ago followed by drug-eluting stent placement in diseased graft, last angiogram at [facility] 3 years ago, History of diabetes mellitus and hypertension was almost about to finish his hemodialysis today when all of a sudden he felt hot and next thing he noted he was in the ambulance. According to medical staff towards the end of his dialysis all of a sudden patient lost consciousness and pulse, AED advised elective cardiac defibrillation was performed,patient pulse and spontaneous breathing was achieved along with good blood pressure. He was transported to emergency room. In the ER troponin was noted to be 269 ng without significant EKG changes.Since then he remained stable. There was no significant valvular click imbalance. He reports no chest pain except hard month followed last 2-3 days. He doesn't appear to be volume overloaded. Echocardiogram was performed which was not of good quality but showed almost normal left ventricular ejection fraction without significant valvular abnormality. Meds/Allergies Home Medications and Allergies Home Medications Medication Instructions Recorded Confirmed Type Levemir FlexTouch U-100 Insuln 80 units SUBCUT BID 08/07/19 09/03/19 History Novolog Flexpen U-100 Insulin See Rx Instructions .ROUTE .COMPLEX 08/07/19 09/03/19 History Plavix 75 mg PO BEDTIME 08/07/19 09/03/19 History Renvela See Rx Instructions .ROUTE .COMPLEX 08/07/19 09/03/19 History allopurinol 300 mg PO DAILY 08/07/19 09/03/19 History cyclosporine 100 mg PO BID 08/07/19 09/03/19 History famotidine 20 mg PO DAILY 08/07/19 09/03/19 History prednisone 5 mg PO DAILY 08/07/19 09/03/19 History rosuvastatin 20 mg PO DAILY 08/07/19 09/03/19 History torsemide 40 mg PO DAILY 08/07/19 09/03/19 History aspirin-sod bicarb-citric acid 1 tab PO DAILY PRN 09/03/19 09/03/19 History [Layla-[place] Original] hydrocodone-acetaminophen [[place]] 1 tab PO QID PRN 09/03/19 09/03/19 History multivitamin [Multiple Vitamins] 1 tab PO DAILY 09/03/19 09/03/19 History Allergies Allergy/AdvReac Type Severity Reaction Status Date / Time Iodinated Contrast Media Allergy Intermediate ADR-Itching Verified 09/03/19 08:54 Current Medications Current Medications Generic Name Dose Route Start Last Admin Trade Name Freq PRN Reason Stop Dose Admin Heparin Sodium (Beef Lung) 5,000 unit 09/03/19 15:06 09/03/19 17:34 Heparin SUBCUT 5,000 unit Q8H [facility] Administration Insulin Aspart 0 unit 09/03/19 18:00 09/03/19 17:34 Novolog SUBCUT 8 unit TIDWM [facility] Administration Protocol Non-Formulary 1 each 09/03/19 18:00 09/03/19 17:49 Medication PO Not Given Cyclosporine 50 Mg BID [facility]Y Sevelamer Carbonate 800 mg 09/03/19 18:00 09/03/19 17:36 Renvela PO 800 mg TIDWM [facility] Administration PFSH Acute PFSH: Medical History (Updated 09/03/19 @ 20:03 by Veronica Estrada MD) Anemia 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 CAD (coronary artery disease) Diabetes mellitus, type II ESRD (end stage renal disease) Right inguinal hernia Surgical History H/O heart artery stent History of four vessel coronary artery bypass graft History of kidney transplant Hx laparoscopic cholecystectomy Hx of arteriovenostomy for renal dialysis Hx of cardiac cath Hx of kidney transplant Hx of lumbosacral spine surgery Family History Mother Dementia CAD (coronary artery disease) Aortic stenosis Father Chronic kidney disease (CKD) ESRD Cancer Prostate cancer Brother CAD (coronary artery disease) Diabetes Social History Smoking and tobacco status: former smoker Alcohol intake: current Alcohol intake frequency: holidays/special occasions only Substance/Drug Use: never Vitals/I&O/Wt Last Vital Signs Temp 98.6 F 09/03/19 19:27 Pulse 83 09/03/19 19:27 Resp 14 09/03/19 19:27 BP 116/66 09/03/19 19:27 Pulse Ox 98 09/03/19 19:27 09/03/19 09/03/19 09/03/19 06:59 14:59 22:59 Output Total 450 / 450 Balance -450 / -450 Weight last 48 hrs Weight 250 lb Physical Exam Narrative: EXAM NARRATIVE: GENERAL: Patient is alert, awake and oriented x3. NECK: No jugular vein distension. HEENT: No cyanosis. No icterus. No pallor. HEART: Regular S1 and S2. No murmur, rub or gallop. LUNGS: Clear to auscultate bilaterally. EXTREMITIES: Lower extremities with trace edema bilaterally. Data Labs: Other Labs: SINUS RHYTHM ANTEROSEPTAL MYOCARDIAL INFARCTION , OF INDETERMINATE AGE [40+ ms Q WAVE IN V1- V4] No previous ECG available for comparison A&P Assessment and plan (1) Ventricular dysrhythmia: Patient had witnessed cardiac arrest requiring electrical defibrillation. Currently stable denies chest pain out of usual shortness of breath. He is not in heart failure. He does not have any significant leg lead imbalance apart from his usual chronic renal failure, we recommend ruling out Ischemic component. We will proceed with left heart catheterization and if indicated PCI in the morning. Patient has been discussed in detail all the risk benefit and alternative for the procedure. We will try to obtain medical records from [facility] in regards to last coronary angiogram which was performed 3 years ago. Continue aspirin statin beta aimee. If required may can use amiodarone. For now continue to monitor on telemetry Status: Acute Code(s): I49.9 - Cardiac arrhythmia, unspecified (2) Anemia: Patient has anemia of chronic disease 10.9. He is on Plavix. We'll continue Status: Acute Code(s): D64.9 - Anemia, unspecified (3) Diabetes mellitus, type II: As per medicine Status: Acute Code(s): E11.9 - Type 2 diabetes mellitus without complications (4) CAD (coronary artery disease): Patient has extensive history of coronary artery disease has above. Continue treatment and investigation as well Status: Acute Code(s): I25.10 - Atherosclerotic heart disease of [place] coronary artery without angina pectoris (5) Hx of arteriovenostomy for renal dialysis: Nephrology on the board Status: Acute Code(s): Z99.2 - Dependence on renal dialysis (6) Non-ST elevation [place] (NSTEMI): Patient is on hemodialysis. Left ventricle hypertrophy status post shock at the same time could be secondary to ischemic component. Recommended adding metoprolol to the regimen continue aspirin statin Plavix and heparin. We will proceed with left heart catheterization/PCI indicated tomorrow. Status: Acute Code(s): I21.4 - Non-ST elevation (NSTEMI) myocardial infarction Coding Level of Care Code New Pt Acute Master In Chancery for g Fwd Patient Type New History Detailed Exam Detailed Medical Decision Making Moderate Complexity Diagnoses Ventricular dysrhythmia I49.9 Anemia D64.9 Diabetes mellitus, type II E11.9 CAD (coronary artery disease) I25.10 Hx of arteriovenostomy for renal dialysis Z99.2 Non-ST elevation [place] (NSTEMI) I21.4
[2019-09-03 20:32] LABS: Glucose Point of Care 191 mg/dL (70-110)
--- NOTE | 2019-09-03 20:32 | PC.NURSE ---
Called regarding pt's angiogram procedure tomorrow Given her the time. Instructed to bring his home med Cyclosporine from home due to our pharmacy has unavailable dose. appreciate it.
--- NOTE | 2019-09-03 20:33 | PC.NURSE ---
Dr. Estrada contacted about SQ heparin and patient being scheduled for angiogram at 1000 AM. Ordered to continue Heparin SQ q8 hours as ordered. Ordered to make patient NPO after 2 AM.
[2019-09-03] MEDS: clopidogrel 75 mg Tablet PO (20:49)
[2019-09-03] MEDS: HYDROcodone-acetaminophen 10-325 mg Tablet 1 TAB PO (20:59)
[2019-09-04] VITALS (111 sets, daily range): BP systolic 111–149; BP diastolic 61–89; PULSE 66–89; RESP 0–24; TEMP 36.5–36.8; O2SAT 92–99
[2019-09-04 03:51] LABS: Basophils % 0.5 %; Eosinophils # 0.2 10^3/uL (0.0-0.8); Eosinophils % 2.7 %; Hematocrit 30.6 % (42.0-52.0); Hemoglobin 9.5 g/dL (11.7-16.6); Lymphocytes # 1.4 10^3/uL (0.8-4.8); Lymphocytes % 20.4 %; Mean Corpuscular Hemoglobin 32.2 pg (28.0-34.0); Mean Corpuscular Volume 103.7 fL (80-94); Mean Platelet Volume 9.9 fL (7.4-10.4); Monocytes # 0.7 10^3/uL (0.2-0.9); Monocytes % 10.7 %; Neutrophils # 4.3 10^3/uL (1.8-7.7); Neutrophils % 65.2 %; Nucleated Red Blood Cells % 0 %; Platelet Count 191 10^3/cmm (130-400); Red Blood Count 2.95 10^6/uL (4.1-5.3); Red Cell Distribution Width 16.7 % (12.1-15.1); White Blood Count 6.6 10^3/uL (4.0-10.0)
[2019-09-04 04:00] LABS: Phosphorus 5.7 mg/dL (2.5-4.5)
[2019-09-04 04:01] LABS: Alanine Aminotransferase 52 U/L (0-41); Albumin Level 3.7 g/dL (3.5-5.2); Alkaline Phosphatase 181 IU/L (40-130); Anion Gap 20.7 (5-19); Aspartate Amino Transferase 71 U/L (0-40); Blood Urea Nitrogen 37 mg/dL (8-23); Calcium 9.9 mg/dL (8.5-10.5); Carbon Dioxide 24 mmol/L (22-29); Chloride 101 mmol/L (98-107); Globulin 3.6 g/dL (1.3-4.6); Glucose 154 mg/dL (65-115); Osmolality Calculated 293 mOsm/kg (285-295); Potassium 4.7 mmol/L (3.5-5.1); Sodium 141 mmol/L (136-145); Total Bilirubin 0.3 mg/dL (0.15-1.2); Total Protein 7.3 g/dL (6.6-8.7)
[2019-09-04 04:44] LABS: Calcium 9.4 mg/dL (8.5-10.5)
[2019-09-04] MEDS: heparin 5,000 unit/mL INJ 1 mL 5000 UNIT SUBCUT (05:19)
[2019-09-04 06:14] LABS: Parathyroid Hormone 564.1 pg/mL (15-65)
[2019-09-04 06:26] LABS: Glucose Point of Care 160 mg/dL (70-110)
--- NOTE | 2019-09-04 08:13 | PM.PN ---
Subjective Subjective: Interval history: no cp overnight. no n/v/f/c/darden/d/sob. Medications: Reviewed: Yes Medication Review Details: Current Medications Acetaminophen (Tylenol) 650 mg PO Q6H PRN PRN Reason: Mild/Mod Pain Or Temp >/= 101 Hydrocodone Bitart/Acetaminophen ([place] 10-325 Mg) 1 tab PO QID PRN PRN Reason: Pain Last Admin: 09/03/19 20:59 Dose: 1 tab Documented by: Allopurinol (Zyloprim) 100 mg PO DAILY [facility] Aspirin (Aspirin Ec) 81 mg PO DAILY [facility] Atorvastatin Calcium (Lipitor) 80 mg PO DAILY [facility] Clopidogrel Bisulfate (Plavix) 75 mg PO BEDTIME [facility] Last Admin: 09/03/19 20:49 Dose: 75 mg Documented by: Dextrose (D50w) 25 ml IVP ONCE PRN; Protocol PRN Reason: hypoglycemia protocol Dextrose (D50w) 50 ml IVP PRN PRN; Protocol PRN Reason: hypoglycemia protocol Diphenhydramine HCl (Benadryl) 50 mg PO ONCE ONE Stop: 09/04/19 09:01 Famotidine (Pepcid Tab) 20 mg PO DAILY [facility] Glucagon (Glucagen) 1 mg IM ONCE PRN; Protocol PRN Reason: Adult Acute Hypoglycemia Prot. Heparin Sodium (Beef Lung) (Heparin) 5,000 unit SUBCUT Q8H [facility] Last Admin: 09/04/19 05:19 Dose: 5,000 unit Documented by: Dextrose (D5w) 500 mls @ 100 mls/hr IV ONCE PRN; Protocol PRN Reason: Adult Acute Hypoglycemia Prot Sodium Chloride (Sodium Chloride 0.9%) 1,000 mls @ 50 mls/hr IV .Q20H ONE Stop: 09/05/19 04:59 Insulin Aspart (Novolog) 0 unit SUBCUT BEDTIME [facility]; Protocol Last Admin: 09/03/19 20:49 Dose: 4 unit Documented by: Insulin Aspart (Novolog) 0 unit SUBCUT TIDWM [facility]; Protocol Last Admin: 09/03/19 17:34 Dose: 8 unit Documented by: Insulin Detemir (Levemir) 50 unit SUBCUT Q12H [facility] Last Admin: 09/03/19 20:42 Dose: Not Given Documented by: Metoprolol Succinate (Toprol Xl) 12.5 mg PO DAILY [facility] Morphine Sulfate (Morphine) 2 mg IVP Q4H PRN PRN Reason: SEVERE PAIN Multivitamins (Allbee-C) 1 each PO DAILY [facility] Naloxone HCl (Narcan) 0.1 mg IVP Q2M PRN PRN Reason: OPIATERV Non-Formulary Medication (Aspirin-Sod Bicarb-Citric Acid [Layla-[place] Original]) 1 tab PO DAILY PRN PRN Reason: unknown Non-Formulary Medication Cyclosporine 50 Mg 1 each PO BID [facility] Last Admin: 09/03/19 17:49 Dose: Not Given Documented by: Ondansetron HCl (Zofran) 4 mg IVP Q6H PRN PRN Reason: NAUSEA AND VOMITING Prednisone (Prednisone) 5 mg PO DAILY [facility] Sevelamer Carbonate (Renvela) 800 mg PO TIDWM [facility] Last Admin: 09/03/19 17:36 Dose: 800 mg Documented by: Torsemide (Demadex) 40 mg PO DAILY [facility] Vitals/I&O/Wt Last Vital Signs Temp 97.7 F 09/04/19 07:37 Pulse 79 09/04/19 07:37 Resp 9 L 09/04/19 07:37 BP 115/70 09/04/19 07:37 Pulse Ox 97 09/04/19 07:37 09/03/19 09/04/19 09/04/19 22:59 06:59 14:59 Intake Total 700 / 700 Output Total 450 / 450 Balance 250 / 250 Weight last 48 hrs Weight 112.763 kg Weight 113.398 kg Physical Exam Narrative: EXAM NARRATIVE: obese, comfortable in bed, NARD vss heent- nc/at, eomi, anicteric neck- supple lungs - cta b/l heart reg, no rub abd soft, +BS ext RUE AVF w/ thrill and bruit no leg edema neuro- a,a, o x 3 skin normal mood normal Data : 09/04/19 03:20 09/04/19 03:20 A&P Additional A&P Information 1. CAD, + trop. s/p cardiac arrest at end of dialysis ysterday. - for cardiac cath today as per cardiology 2. ESRD- HD MWF -elevated pth and phos- inc renvela. use zemplar w/ hd HD in am unless develops sib in lab technician today 3. h/o LRRTX- as on HD for 11 months- would wean off cyclosporpne- please call his transplant thermodynamicist at [facility] to see why he is still on it. i cut the dose in half 4. bp well controlled 5. DM control 6. monitor tsh 7. gout- check uric acid level- dec allopurinol to 100 mg daily w/ESRD telenephrology services provided w/ RN in room. Attestations Medical Necessity Statement*: s/p cardiac arret, dm, esrd Time Spent in Patient Care: 16 - 35 minutes Coding Level of Care Code Acute Mail Handler Equipment Operator for Kaycee Dejesus
[2019-09-04] MEDS: TORSEmide 20 mg Tablet 40 MG PO (08:47)
[2019-09-04] MEDS: metoprolol succinate ER (24 HR) 25 mg Tablet 12.5 MG PO (08:47)
[2019-09-04] MEDS: sevelamer 800 mg Tablet PO ×2 (08:47→18:56)
[2019-09-04] MEDS: atorvastatin 40 mg Tablet 80 MG PO (08:48)
[2019-09-04] MEDS: b-complex-vitamin c Tablet 1 EACH PO (08:48)
[2019-09-04] MEDS: diphenhydrAMINE 50 mg Capsule PO (08:48)
[2019-09-04] MEDS: famotidine 20 mg Tablet PO (08:48)
[2019-09-04] MEDS: aspirin 81 mg EC Tablet PO (08:48)
[2019-09-04] MEDS: allopurinol 300 mg Tablet 100 MG PO (08:49)
[2019-09-04] MEDS: predniSONE 5 mg Tablet PO (08:49)
[2019-09-04] MEDS: sodium chloride 0.9% 1,000 ML 50 ML IV (08:50)
--- NOTE | 2019-09-04 10:33 | PM.PN ---
Subjective Subjective: Interval history: Patient awake in bed at time of exam today. He reports feeling somewhat sleepy but denies any other concerns. Denies any chest pain, shortness of breath, no palpitations or lightheadedness. Medications: Reviewed: Yes Medication Review Details: Current Medications Acetaminophen (Tylenol) 650 mg PO Q6H PRN PRN Reason: Mild/Mod Pain Or Temp >/= 101 Hydrocodone Bitart/Acetaminophen ([place] 10-325 Mg) 1 tab PO QID PRN PRN Reason: Pain Last Admin: 09/03/19 20:59 Dose: 1 tab Documented by: Allopurinol (Zyloprim) 100 mg PO DAILY [facility] Aspirin (Aspirin Ec) 81 mg PO DAILY [facility] Atorvastatin Calcium (Lipitor) 80 mg PO DAILY [facility] Clopidogrel Bisulfate (Plavix) 75 mg PO BEDTIME [facility] Last Admin: 09/03/19 20:49 Dose: 75 mg Documented by: Dextrose (D50w) 25 ml IVP ONCE PRN; Protocol PRN Reason: hypoglycemia protocol Dextrose (D50w) 50 ml IVP PRN PRN; Protocol PRN Reason: hypoglycemia protocol Diphenhydramine HCl (Benadryl) 50 mg PO ONCE ONE Stop: 09/04/19 09:01 Famotidine (Pepcid Tab) 20 mg PO DAILY [facility] Glucagon (Glucagen) 1 mg IM ONCE PRN; Protocol PRN Reason: Adult Acute Hypoglycemia Prot. Heparin Sodium (Beef Lung) (Heparin) 5,000 unit SUBCUT Q8H [facility] Last Admin: 09/04/19 05:19 Dose: 5,000 unit Documented by: Dextrose (D5w) 500 mls @ 100 mls/hr IV ONCE PRN; Protocol PRN Reason: Adult Acute Hypoglycemia Prot Sodium Chloride (Sodium Chloride 0.9%) 1,000 mls @ 50 mls/hr IV .Q20H ONE Stop: 09/05/19 04:59 Insulin Aspart (Novolog) 0 unit SUBCUT BEDTIME [facility]; Protocol Last Admin: 09/03/19 20:49 Dose: 4 unit Documented by: Insulin Aspart (Novolog) 0 unit SUBCUT TIDWM [facility]; Protocol Last Admin: 09/03/19 17:34 Dose: 8 unit Documented by: Insulin Detemir (Levemir) 50 unit SUBCUT Q12H [facility] Last Admin: 09/03/19 20:42 Dose: Not Given Documented by: Metoprolol Succinate (Toprol Xl) 12.5 mg PO DAILY [facility] Morphine Sulfate (Morphine) 2 mg IVP Q4H PRN PRN Reason: SEVERE PAIN Multivitamins (Allbee-C) 1 each PO DAILY [facility] Naloxone HCl (Narcan) 0.1 mg IVP Q2M PRN PRN Reason: OPIATERV Non-Formulary Medication (Aspirin-Sod Bicarb-Citric Acid [Layla-[place] Original]) 1 tab PO DAILY PRN PRN Reason: unknown Non-Formulary Medication Cyclosporine 50 Mg 1 each PO BID [facility] Last Admin: 09/03/19 17:49 Dose: Not Given Documented by: Ondansetron HCl (Zofran) 4 mg IVP Q6H PRN PRN Reason: NAUSEA AND VOMITING Prednisone (Prednisone) 5 mg PO DAILY [facility] Sevelamer Carbonate (Renvela) 800 mg PO TIDWM [facility] Last Admin: 09/03/19 17:36 Dose: 800 mg Documented by: Torsemide (Demadex) 40 mg PO DAILY [facility] Vitals/I&O/Wt Last Vital Signs Temp 97.7 F 09/04/19 07:37 Pulse 79 09/04/19 07:37 Resp 9 L 09/04/19 07:37 BP 115/70 09/04/19 07:37 Pulse Ox 97 09/04/19 07:37 09/03/19 09/04/19 09/04/19 22:59 06:59 14:59 Intake Total 700 / 700 Output Total 450 / 450 Balance 250 / 250 Weight last 48 hrs Weight 112.763 kg Weight 113.398 kg Physical Exam Const: COMMON NORMALS: oriented x3 and alert GENERAL APPEARANCE: cooperative ORIENTATION/CONSCIOUSNESS: Yes awake, Yes oriented to person, Yes oriented to place and Yes oriented to time HENMT: COMMON NORMALS: normocephalic and head/scalp atraumatic HEAD & SCALP: normocephalic and atraumatic Eye: COMMON NORMALS: PERRL PUPIL: Yes PERRL Neck/C-Spine: COMMON NORMALS: supple GENERAL: Yes normal visual inspection Resp: COMMON NORMALS: normal respiratory effort and clear to auscultation bilaterally EFFORT & INSPECTION: Yes able to speak in complete sentences AUSCULTATION: clear to auscultation bilaterally, no rhonchi and no wheezes Cardio: COMMON NORMALS: regular rate, regular rhythm and no murmurs RATE: regular rate RHYTHM: regular rhythm GI: COMMON NORMALS: soft to palpation and non-tender INSPECTION: No abdominal distension AUSCULTATION: Yes normoactive bowel sounds PALPATION: Yes soft Extremity: COMMON NORMALS: no clubbing, cyanosis or edema and no calf tenderness Neuro: COMMON NORMALS: oriented x3, CN's II-XII intact bilaterally, moves all extremities and no focal motor deficits SENSORIUM/ORIENTATION: Yes alert, Yes oriented to person, Yes oriented to place and Yes oriented to time SPEECH: speech normal Psych: COMMON NORMALS: mental status grossly normal and cooperative Skin: COMMON NORMALS: no rashes or lesions noted GENERAL SKIN EXAM: no rashes or lesions noted Data : 09/04/19 03:20 09/04/19 03:20 A&P Assessment and plan (1) Ventricular dysrhythmia: Witnessed h arrest with the ED placement and shock advised and delivered on 09/03/2019 Telemetry Echocardiogram reviewed Plan for cardiac cath today Cardiology consultation, Dr. Estrada. Appreciate recommendations and assistance in patient's care. Patient reports history of four-vessel CABG and multiple stents. Followed by Dr. Longoria at [facility] in [place] Status: Acute Code(s): I49.9 - Cardiac arrhythmia, unspecified (2) Anemia: Likely secondary to chronic disease, no evidence of any active bleeding Status: Acute Code(s): D64.9 - Anemia, unspecified (3) Diabetes mellitus, type II: Insulin-dependent Patient is on Levemir 80 units twice daily, will decrease to 50 units twice daily as do not wish for patient to become hypoglycemic. Will place on sliding scale insulin Status: Acute Code(s): E11.9 - Type 2 diabetes mellitus without complications (4) CAD (coronary artery disease): Followed by Dr. Craft at [facility] in [place] History of CABG x4 vessel and reported history of 13 stents Remains on aspirin, statin, not on beta-aimee on admission. Started on metoprolol 12.5 mg daily Status: Acute Code(s): I25.10 - Atherosclerotic heart disease of [place] coronary artery without angina pectoris (5) ESRD (end stage renal disease): On dialysis Tuesday and Tuesday Nephrology consulted, appreciate recommendations and assistance in patient's care. Status: Acute Code(s): N18.6 - End stage renal disease Additional A&P Information Patient with a history of renal transplant approximately 24 years ago Chronic prednisone therapy: Continue at this time DVT prophylaxis: Heparin Diet: Cardiac, carb consist, renal dialysis diet CODE STATUS: Full code Attestations Medical Necessity Statement*: Patient requires further hospitalization due to ventricular arrhythmia with witnessed cardiac arrest Coding Level of Care Code Acute Web Machine Tender for g Fwd Diagnoses Ventricular dysrhythmia I49.9 Anemia D64.9 Diabetes mellitus, type II E11.9 CAD (coronary artery disease) I25.10 ESRD (end stage renal disease) N18.6
--- NOTE | 2019-09-04 11:11 | XACV_ITS ---
Exam Room: [employer] Ht: 178 cm Wt: 113 kg BSA: 2.41 m2 Gender: Male : 1955 Any Known Allergies: Contrast Exam Priority: Routine Procedure(s): Procedure Description: Diagnostic procedure Procedure Description: PCI procedure Procedure Description: Venous Graft Catheterization Procedure Description: Drug Eluting Coronary Stent Procedure Description: PTCA Procedure Description: Miscellaneous Procedure Description: ACT Procedure Description: Coronary Angiography Diagnostic Cath Status: Elective Diagnostic Findings LM has 0% stenosis. pLAD: Severe 100% stenosis, JULIO: 0 flow. Proximal Circumflex Coronary Artery: Moderate 60% stenosis, JULIO: 3 flow. Mid Circumflex Coronary Artery: Severe 90% stenosis, JULIO: 3 flow. Two grafts visualized. VU to dLAD: patent. SVG to dRCA: 100% stenosis, JULIO: 0 flow. Coronary angiography shows right dominance. PCI Status: Urgent PCI Indication: Other Interventional Findings Mid Circumflex Coronary Artery: 90% stenosis treated with AB MINI TREK 2.00X8 RX BALLOON and MDYolanda R RAFAL 2.75X12 JUAN C. 0% residual stenosis, JULIO: 3 flow. Conclusions There is severe coronary artery disease with three vessel disease. one graft patent, and one graft diseased. Patient has prior CABG. Mid Circumflex Coronary Artery was treated with Balloon and Drug Eluting Stent. Patient was admitted after V. fib arrest treated with brief CPR and electrical cardioversion during hemodialysis. Patient reported chest pain as well. He has history of CABG. He has history of SVG to RCA 2 and history of VU to LAD. He should told that both grafts to the RCA were closed 3 years ago, [place] RCA was treated with drug-eluting stent at that time. During this angiogram RCA was patent, VU to LAD was patent, LAD was chronically occluded at the ostium, left main was patent. Circumflex has 50-60% proximal lesion mid circumflex had tortuous 70-80% eccentric lesion. FFR was performed, IFR of the mid lesion was 0.74 which was significant. Proximal lesion was then checked with FFR which remained non-significant therefore we treated mid circumflex with balloon angioplasty followed by stent placement. FFR: After equalizing the distal and proximal pressure of FFR wire proximal to the lesion in the Aorta, mid LCx lesion was crossed with FFR wire. IFR was noted to be 0.74 which was significant, wire was withdraw from the second mid LCx lesion immediage normalization of pressure in high 90s was noted, proximal lesion was then test by FFR, IV adenosine at rate of 140 mcg/min was started. Patient did not compliant of any symptoms, at then end of two minutes FFR was recorded as 0.94, which is not significant . Recommendations 1-Return to inpatient for close monitoring and routine cath care2-Risk factor modification for secondary prevention3-Statin and aspirin 81 mg life-long, if tolerated4-Continue Plavix 75mg p.o. daily for at least one year. 5-Continue optimal medical management6-Follow up with your pairer odds in four weeks and your primary care in 10 days. Interventional RX Recommendation: PCI w/o planned CABG Diagnostic RX Recommendation: PCI w/o planned CABG Clinical Evaluation EBL: 5mL-10mL Procedural Details Procedure Consent Obtained. Pre-Procedure Time Out. Identified patient by full name and date of as verbalized by the patient/guarantor. Does the consent match the physician's order: Yes. Accurate & Complete Informed Consent: Yes. Inpatient/Outpatient History & Physical on Chart: Yes. If H&P is completed, is and addenduem needed: No; If yes, is the addendum complete: N/A. Visualize and Verify Site with Patient/Guarantor: N/A. Relevant Radiology Images available: Yes. Pre-op teaching completed and patient verbalized understanding. The risks, benefits, and alternatives of sedation and/or procedure were discussed by physician. The patient agrees to continue. Procedure started. Correct patient, site and procedure confirmed by cath team. Current diagnosis: Chest Pain. PERRLA. Strong, equal hand policyholder information clerk bilaterally. Lungs clear x 5 lobes. IV Site on Arrival: 20 gauge in the left forearm. IV Fluids: 0.9% NaCl at KVO. 0 mL infused prior to laborer hide house. Pre Procedural Pulses: bilateral dorsalis pedis was 2+. Pre Procedural Pulses: bilateral posterior tibial was 2+. Pre Procedural Pulses: bilateral radial was 2+. Oxygen started at 2liters/min via nasal canula. bilateral groins was prepped with chloroprep then draped in the usual sterile fashion. right radial was prepped with chloroprep then draped in the usual sterile fashion. Physician notified. Equipment: 6F - Radial. ACIST Manifold Kit Model BT 2000. Cardiac Cath Pack. Heparinized Saline (2 units/mL), 1000 mL bag. Physician arrived. Physician scrubbed in. Immediate Pre-Procedure Time Out. Correct Patient: Yes; Correct Procedure: Yes; Correct Site: Yes; Correct Patient Position: Yes; Correct Supplies: Yes; Dried Flammable Prep: Yes; Blood Products Available: No;. Lidocaine 1% infiltrated to the right groin. Arterial access obtained with micropuncture set. A 5 gabonese JL4 catheter in over wire. Multiple views taken of left coronary artery. Catheter out. A 5 gabonese JR4 catheter in over wire. Multiple views taken of right coronary artery. Catheter redirected to the Grafts. VU to LAD visualized. Side port of sheath attached to Normal Saline flush at KVO to maintain patency. A 5 gabonese Angled Pig catheter in over wire. Aortogram performed in [place] @ 20 mL/second for a total of 40 mL. A 5 gabonese AL1 catheter in over wire. 6 gabonese XB 3.5 guide catheter was inserted over the wire. Pressure wire inserted. Pressure wire and catheter out. An FFR value of 1.02 was obtained for a lesion located at Prox CX. [place] guidewire was advanced through the guide catheter to lesion in the mid Circ. AP pads placed on patient. Inflation number : 1 A AB MINI TREK 2.00X8 RX BALLOON was prepped and advanced across the Mid CX , then inflated to 16 ESTER for 0:15 seconds. Balloon out. Inflation Number : 2 A CHERIE Tirado RAFAL 2.75X12 JUAN C -Lot Number# [id number] was prepped and advanced across the Mid CX. The stent was deployed at 14 ESTER for 0:13 seconds Stent expiration date: 04/04/2021. Stent balloon out over wire. Results checked. ACT drawn. Results 149 seconds. Therapeutic limits - pre-heparin administration 90-150 seconds and monitoring heparin during a vascular procedure >250 seconds. Vital chart was stopped. Sheath(s) sutured into position with 2-0 silk and sterile 4x4's and Op-site applied over the site. No oozing or signs and symptoms of hematoma noted. Arterial sheath flushed and connected to tranducer and pressure bag with heparinized saline. Post Procedure: Pulses reassessed and unchanged. PERRLA. Strong, equal hand policyholder information clerk bilaterally. No VTE prophylaxis required. Total IV fluids: 95.8 mL. Contrast type used: Omnipaque 300 mgI/mL, 500 mL bottle. PCI Indication: NSTE. [facility] Clinical Fraility Score: 3: Managing Well. Machine Tailer Indications: Resuscitated Cardaic Arrest. Chest Pain Symptom Assessment: Atypical Angina. Cardiovascular Instability: No. Post-op diagnosis: Multivessel CAD. Complications: None. Estimated blood loss: 5mL-10mL. A Suture was successful obtaining hemostatsis at the Right Femoral artery insertion site. Medication's Wasted: Lidocaine 1% = 10 mL. Medication's Wasted: Heparin = 4000 units. Medication's Wasted: Other = Adenosine 15 mg. Medication's Wasted: Other = Versed 1 mg. Medication's Wasted: Other = Fentanyl 50mcg. Procedure completed. Patient transferred by bed to 1st floor. Site: Right Femoral artery Sheath Size: 6 Fr Hemostasis Method: Suture Hemostasis Success: Successful Procedure Medications Start: 11:51 AM Stop: 11:51 AM Medication: Solu-Medrol (methylprednisolone) Amount: 125 mg Route: I.V. Start: 11:53 AM Stop: 11:53 AM Medication: Versed Amount: 1 mg Route: I.V. Start: 11:53 AM Stop: 11:53 AM Medication: Fentanyl Amount: 50 mcg Route: I.V. Start: 12:02 PM Stop: 12:02 PM Medication: Versed Amount: 1 mg Route: I.V. Start: 12:02 PM Stop: 12:02 PM Medication: Fentanyl Amount: 50 mcg Route: I.V. Start: 12:54 PM Stop: 12:54 PM Medication: Versed Amount: 1 mg Route: I.V. Start: 12:54 PM Stop: 12:54 PM Medication: Fentanyl Amount: 50 mcg Route: I.V. Start: 1:00 PM Stop: 1:00 PM Medication: Heparin Amount: 2000 units Route: I.V. Start: 12:16 PM Stop: 12:16 PM Medication: Heparin Amount: 7000 units Route: I.V. Start: 1:12 PM Stop: 1:12 PM Medication: Heparin Amount: 5000 units Route: I.V. I, the attending physician, have reviewed and verified all procedure medications. Yes, all medications given per verbal order History/Risk Factors Hypertension: Yes Dyslipidemia: Yes Diabetic Therapy: Insulin Peripheral Arterial Disease (PAD): No Myocardial Infarction (RI): Yes Obesity: Yes Renal Disease: No Tobacco Use: Former Prior Interventions PCI: Yes CABG: Yes Valve Surgery: No Report Signatures Finalized by:Veronica Estrada MD on 09/16/2019 8:32:44 PM
--- NOTE | 2019-09-04 11:32 | PC.CHAP ---
Pastoral Care Encounter/Spiritual Assessment Type of Contact [] Declined show host visit [] Patient/Family/Request visit [] Outpatient visit [] Follow-up visit [] Physician referral [] Code/Alert [x] Routine visit [] Staff referral [] Actively dying [] Patient sleeping [] Family support [] [] Out of room [] Palliative care [] [x] Receiving care in room [] Pre-surgical visit [] Trauma [] Long length of stay [] ICU visit [] Other: Relational/Emotional Strength [x] Patient feels connected with others/family/visitors/staff [] Distress [] Loneliness/isolation [] Abandonment Spirituality of Patient [x] Person of Wanda [] Attends Cheondoism of their Wanda [x] Believes in Prayer [] Reads Bible or Episcopalian materials [] There are Spiritual issues to be addressed Wedding Transportation Driver Interventions [x] Prayer [x] Active listening [x] Non-anxious presence [x] Spiritual/emotional support [] Crisis/trauma care [x] Spiritual counseling [] Bereavement support [] Provided bereavement packet [] Provided Bible/devotional materials [] Provided toy/stuffed animal, coloring book to patient or family member [] Provided Communion [] Anointing/[place] [] Salvation [] Completed spiritual assessment [] Other: Impact on Illness or Injury [] Angry [] Fearful [] Anxious [] Often cries [] Exhaustion [] Unable to work [] Unable to attend scientologist [] Unable to walk/stand [] Unable to read [] Unable to drive [] Unable to eat/drink [] Unable to sleep [] Unable to be with family [] Patient intubated [] Other: Summary + 1 was with him, had to re start his heart, taking cehmo is able to deal with his heart problems, has a good attitude, hopefull Time spent with patient
[2019-09-04 11:54] LABS: Glucose Point of Care 178 mg/dL (70-110)
[2019-09-04] MEDS: HYDROcodone-acetaminophen 10-325 mg Tablet 1 TAB PO ×2 (13:48→21:23)
--- NOTE | 2019-09-04 14:00 | PC.NURSE ---
PATIENT TO CSU VIA STRETCHER WITH CCL RNs ; RIGHT GROIN SHEATH DRESSING IN PLACE WITH A PRESSURE BAG ; DISTAL PULSES PRESENT ; NO BLEEDING BRUISING OR HEMATOMA NOTED ; VSS
[2019-09-04 16:57] LABS: Glucose Point of Care 300 mg/dL (70-110)
--- NOTE | 2019-09-04 19:37 | PC.NURSE ---
Dressing to right groin dry and intact with no hematoma or bleeding noted. Sheath still in place. Awaiting PTT results.
[2019-09-04 19:43] LABS: Partial Thromboplastin Time 40.2 SECONDS (23.9-36.7)
--- NOTE | 2019-09-04 20:00 | P.PN_ITS ---
Subjective Subjective: Interval history: Patient underwent left heart catheterization found to have significant mid circumflex to obtuse marginal lesion treated with single drug-eluting stent most likely it was a culprit vessel. Medications: Reviewed: Yes Medication Review Details: Current Medications Acetaminophen (Tylenol) 650 mg PO Q6H PRN PRN Reason: Mild/Mod Pain Or Temp >/= 101 Hydrocodone Bitart/Acetaminophen ([place] 10-325 Mg) 1 tab PO QID PRN PRN Reason: Pain Last Admin: 09/03/19 20:59 Dose: 1 tab Documented by: Allopurinol (Zyloprim) 100 mg PO DAILY [facility] Aspirin (Aspirin Ec) 81 mg PO DAILY [facility] Atorvastatin Calcium (Lipitor) 80 mg PO DAILY [facility] Clopidogrel Bisulfate (Plavix) 75 mg PO BEDTIME [facility] Last Admin: 09/03/19 20:49 Dose: 75 mg Documented by: Dextrose (D50w) 25 ml IVP ONCE PRN; Protocol PRN Reason: hypoglycemia protocol Dextrose (D50w) 50 ml IVP PRN PRN; Protocol PRN Reason: hypoglycemia protocol Diphenhydramine HCl (Benadryl) 50 mg PO ONCE ONE Stop: 09/04/19 09:01 Famotidine (Pepcid Tab) 20 mg PO DAILY [facility] Glucagon (Glucagen) 1 mg IM ONCE PRN; Protocol PRN Reason: Adult Acute Hypoglycemia Prot. Heparin Sodium (Beef Lung) (Heparin) 5,000 unit SUBCUT Q8H [facility] Last Admin: 09/04/19 05:19 Dose: 5,000 unit Documented by: Dextrose (D5w) 500 mls @ 100 mls/hr IV ONCE PRN; Protocol PRN Reason: Adult Acute Hypoglycemia Prot Sodium Chloride (Sodium Chloride 0.9%) 1,000 mls @ 50 mls/hr IV .Q20H ONE Stop: 09/05/19 04:59 Insulin Aspart (Novolog) 0 unit SUBCUT BEDTIME [facility]; Protocol Last Admin: 09/03/19 20:49 Dose: 4 unit Documented by: Insulin Aspart (Novolog) 0 unit SUBCUT TIDWM [facility]; Protocol Last Admin: 09/03/19 17:34 Dose: 8 unit Documented by: Insulin Detemir (Levemir) 50 unit SUBCUT Q12H [facility] Last Admin: 09/03/19 20:42 Dose: Not Given Documented by: Metoprolol Succinate (Toprol Xl) 12.5 mg PO DAILY [facility] Morphine Sulfate (Morphine) 2 mg IVP Q4H PRN PRN Reason: SEVERE PAIN Multivitamins (Allbee-C) 1 each PO DAILY [facility] Naloxone HCl (Narcan) 0.1 mg IVP Q2M PRN PRN Reason: OPIATERV Non-Formulary Medication (Aspirin-Sod Bicarb-Citric Acid [Layla-Mcdowell Original]) 1 tab PO DAILY PRN PRN Reason: unknown Non-Formulary Medication Cyclosporine 50 Mg 1 each PO BID [facility] Last Admin: 09/03/19 17:49 Dose: Not Given Documented by: Ondansetron HCl (Zofran) 4 mg IVP Q6H PRN PRN Reason: NAUSEA AND VOMITING Prednisone (Prednisone) 5 mg PO DAILY [facility] Sevelamer Carbonate (Renvela) 800 mg PO TIDWM [facility] Last Admin: 09/03/19 17:36 Dose: 800 mg Documented by: Torsemide (Demadex) 40 mg PO DAILY [facility] Vitals/I&O/Wt Last Vital Signs Temp 97.7 F 09/04/19 19:54 Pulse 80 09/04/19 19:54 Resp 17 09/04/19 19:54 BP 137/78 09/04/19 19:54 Pulse Ox 98 09/04/19 19:54 09/04/19 09/04/19 09/04/19 06:59 14:59 22:59 Intake Total 600 / 600 Output Total 350 / 350 Balance -350 / -350 600 / 250 Weight last 48 hrs Weight 248 lb 9.6 oz Weight 250 lb Physical Exam Narrative: EXAM NARRATIVE: GENERAL: Patient is alert, awake and oriented x3. NECK: No jugular vein distension. HEENT: No cyanosis. No icterus. No pallor. HEART: Regular S1 and S2. No murmur, rub or gallop. LUNGS: Clear to auscultate bilaterally. EXTREMITIES: Lower extremities with trace edema bilaterally. Data : 09/04/19 03:20 09/04/19 03:20 A&P Assessment and plan (1) Ventricular dysrhythmia: Most likely ischemic.Patient underwent left heart catheterization this morning, he was found to have chronically occluded saphenous venous graft to RCA and obtuse marginal, right coronary artery is patent without significant in- stent restenosis multiple stents were observed. VU appeared to be atretic are not visualized, LAD has luminal irregularity without significant stenosis with good flow, circumflex is moderate size and caliber vessel with proximal 50% and mid tight 80% stenosis. IFRwas significant 0.74 the mid lesion of the circumflex into obtuse marginal. It was treated with drug-eluting stent with excellent angiographic result. Proximal lesion was not significant for FFR. Most likely it was a culprit lesion causing angina and ventricular fibrillation. Continue current regimen. Continue aspirin statin beta aimee and Plavix. Status: Acute Code(s): I49.9 - Cardiac arrhythmia, unspecified (2) Anemia: Patient has anemia of chronic disease 10.9. He is on Plavix. We'll continue Status: Acute Code(s): D64.9 - Anemia, unspecified (3) Diabetes mellitus, type II: As per medicine Status: Acute Code(s): E11.9 - Type 2 diabetes mellitus without complications (4) CAD (coronary artery disease): Patient has extensive history of coronary artery disease has above. Continue treatment and investigation as well Status: Acute Code(s): I25.10 - Atherosclerotic heart disease of crow coronary artery without angina pectoris (5) Hx of arteriovenostomy for renal dialysis: Nephrology on the board Status: Acute Code(s): Z99.2 - Dependence on renal dialysis (6) Non-ST elevation MN (NSTEMI): Patient is on hemodialysis. Left ventricle hypertrophy status post shock at the same time could be secondary to ischemic component. Recommended adding metoprolol to the regimen continue aspirin statin Plavix and heparin. We will proceed with left heart catheterization/PCI indicated tomorrow. Status: Acute Code(s): I21.4 - Non-ST elevation (NSTEMI) myocardial infarction Attestations Medical Necessity Statement*: Patient regarding continuation hospitalization for post PCI care Coding Level of Care Code Established Pt Acute Glass Sagger for g Fwd Patient Type Established History Expanded Problem Focused Exam Expanded Problem Focused Medical Decision Making Moderate Complexity Diagnoses Ventricular dysrhythmia I49.9 Anemia D64.9 Diabetes mellitus, type II E11.9 CAD (coronary artery disease) I25.10 Hx of arteriovenostomy for renal dialysis Z99.2 Non-ST elevation MN (NSTEMI) I21.4
[2019-09-04] MEDS: fentaNYL 50 mcg/mL INJ 2mL 25 MCG IVP ×2 (20:20→20:25)
[2019-09-04 21:07] LABS: Glucose Point of Care 350 mg/dL (70-110)
[2019-09-04] MEDS: clopidogrel 75 mg Tablet PO (21:24)
--- NOTE | 2019-09-04 23:12 | PC.NURSE ---
Patient upset over not being able to get up to use the bathroom. This nurse explained to him, once again, the reasoning he is unable to move his right leg. Well can I just stand at the side of the bed. Once again, explained to him the reasoning he is unable to move right leg. Voices understanding;however, don't like it. Dressing to right groin dry and intact with no bleeding or hematoma noted. Will monitor.
--- NOTE | 2019-09-04 23:30 | PC.NURSE ---
Patient continues to say that he is unable to urinate using urinal in bed. Dr. Meza notified with new order received to bladder scan patient and in and out cath. Procedure performed with bladder scan showing 999. In and out cath performed using sterile technique with 16Fr gage catheter with return of 1100cc's of urine. Patient states, I feel a lot better.....haven't peed since noon...I told some people but they were ok with it I guess. Will monitor.
[2019-09-05] VITALS (35 sets, daily range): BP systolic 103–129; BP diastolic 59–98; PULSE 60–89; RESP 14–22; TEMP 36.5; O2SAT 92–100
[2019-09-05] MEDS: temazepam 15 mg Capsule PO (00:03)
[2019-09-05 04:38] LABS: Hematocrit 30.7 % (42.0-52.0); Hemoglobin 9.5 g/dL (11.7-16.6); Lymphocytes # 0.5 10^3/uL (0.8-4.8); Lymphocytes % 6.2 %; Mean Corpuscular HGB Conc 30.9 g/dL (30.0-36.0); Mean Corpuscular Hemoglobin 31.9 pg (28.0-34.0); Monocytes # 0.3 10^3/uL (0.2-0.9); Monocytes % 4.1 %; Neutrophils # 7.1 10^3/uL (1.8-7.7); Neutrophils % 89.1 %; Nucleated Red Blood Cells % 0 %; Platelet Count 191 10^3/cmm (130-400); Red Blood Count 2.98 10^6/uL (4.1-5.3); Red Cell Distribution Width 16.6 % (12.1-15.1)
[2019-09-05 05:10] LABS: Alanine Aminotransferase 36 U/L (0-41); Albumin Level 3.9 g/dL (3.5-5.2); Alkaline Phosphatase 191 IU/L (40-130); Anion Gap 19.1 (5-19); Aspartate Amino Transferase 32 U/L (0-40); Blood Urea Nitrogen 53 mg/dL (8-23); Calcium 9.8 mg/dL (8.5-10.5); Carbon Dioxide 23 mmol/L (22-29); Chloride 98 mmol/L (98-107); Globulin 2.8 g/dL (1.3-4.6); Glomerular Filtration Rate 8.3 mL/min (90-130); Glucose 295 mg/dL (65-115); Osmolality Calculated 287 mOsm/kg (285-295); Potassium 6.1 mmol/L (3.5-5.1); Sodium 134 mmol/L (136-145); Total Bilirubin 0.2 mg/dL (0.15-1.2); Total Protein 6.7 g/dL (6.6-8.7)
[2019-09-05 05:30] LABS: Magnesium 2.3 mg/dL (1.7-2.3); Phosphorus 3.6 mg/dL (2.5-4.5); Uric Acid 5.6 mg/dL (3.4-7.0)
[2019-09-05 06:42] LABS: Glucose Point of Care 302 mg/dL (70-110)
[2019-09-05] MEDS: sevelamer 800 mg Tablet PO ×2 (07:53→12:18)
--- NOTE | 2019-09-05 08:45 | PM.PN ---
Subjective Subjective: Interval history: seen and examined w/ RN on dialysis. feels well. no n/v/f/c/darden/cp/sob. POD #1 s/p cardiac cath w/ stents Medications: Reviewed: Yes Medication Review Details: Current Medications Acetaminophen (Tylenol) 650 mg PO Q6H PRN PRN Reason: Mild/Mod Pain Or Temp >/= 101 Hydrocodone Bitart/Acetaminophen ([place] 10-325 Mg) 1 tab PO QID PRN PRN Reason: Pain Last Admin: 09/04/19 21:23 Dose: 1 tab Documented by: Al Hydrox/Mg Hydrox/Simethicone (Maalox) 30 ml PO Q15M PRN PRN Reason: INDIGESTION Allopurinol (Zyloprim) 100 mg PO DAILY [facility] Last Admin: 09/04/19 08:49 Dose: 100 mg Documented by: Alprazolam (Xanax) 0.25 mg PO TID PRN PRN Reason: ANXIETY Aspirin (Aspirin Ec) 81 mg PO DAILY [facility] Last Admin: 09/04/19 08:48 Dose: 81 mg Documented by: Atorvastatin Calcium (Lipitor) 80 mg PO DAILY [facility] Last Admin: 09/04/19 08:48 Dose: 80 mg Documented by: Atropine Sulfate (Atropine) 0.5 mg IVP PRN PRN PRN Reason: Symptomatic bradycardia Clopidogrel Bisulfate (Plavix) 75 mg PO BEDTIME [facility] Last Admin: 09/04/19 21:24 Dose: 75 mg Documented by: Dextrose (D50w) 25 ml IVP ONCE PRN; Protocol PRN Reason: hypoglycemia protocol Dextrose (D50w) 50 ml IVP PRN PRN; Protocol PRN Reason: hypoglycemia protocol Famotidine (Pepcid Tab) 20 mg PO DAILY [facility] Last Admin: 09/04/19 08:48 Dose: 20 mg Documented by: Glucagon (Glucagen) 1 mg IM ONCE PRN; Protocol PRN Reason: Adult Acute Hypoglycemia Prot. Dextrose (D5w) 500 mls @ 100 mls/hr IV ONCE PRN; Protocol PRN Reason: Adult Acute Hypoglycemia Prot Insulin Aspart (Novolog) 0 unit SUBCUT BEDTIME [facility]; Protocol Last Admin: 09/04/19 21:22 Dose: 7 unit Documented by: Insulin Aspart (Novolog) 0 unit SUBCUT TIDWM [facility]; Protocol Last Admin: 09/05/19 07:53 Dose: 14 unit Documented by: Insulin Detemir (Levemir) 50 unit SUBCUT Q12H [facility] Last Admin: 09/05/19 07:54 Dose: 50 unit Documented by: Magnesium Hydroxide (Milk Of Magnesia) 30 ml PO DAILY PRN PRN Reason: CONSTIPATION Metoprolol Succinate (Toprol Xl) 12.5 mg PO DAILY [facility] Last Admin: 09/04/19 08:47 Dose: 12.5 mg Documented by: Morphine Sulfate (Morphine) 2 mg IVP Q4H PRN PRN Reason: SEVERE PAIN Multivitamins (Allbee-C) 1 each PO DAILY [facility] Last Admin: 09/04/19 08:48 Dose: 1 each Documented by: Naloxone HCl (Narcan) 0.1 mg IVP Q2M PRN PRN Reason: OPIATERV Nitroglycerin (Nitrostat) 0.4 mg SUBLINGUAL Q5M PRN PRN Reason: CHEST PAIN Non-Formulary Medication (Aspirin-Sod Bicarb-Citric Acid [Layla-Ryley Original]) 1 tab PO DAILY PRN PRN Reason: unknown Non-Formulary Medication Cyclosporine 50 Mg 1 each PO BID [facility] Last Admin: 09/04/19 18:20 Dose: Not Given Documented by: Ondansetron HCl (Zofran) 4 mg IVP Q6H PRN PRN Reason: NAUSEA AND VOMITING Prednisone (Prednisone) 5 mg PO DAILY [facility] Last Admin: 09/04/19 08:49 Dose: 5 mg Documented by: Sevelamer Carbonate (Renvela) 800 mg PO TIDWM [facility] Last Admin: 09/05/19 07:53 Dose: 800 mg Documented by: Temazepam (Restoril) 15 mg PO BEDTIME PRN PRN Reason: INSOMNIA Last Admin: 09/05/19 00:03 Dose: 15 mg Documented by: Torsemide (Demadex) 40 mg PO DAILY [facility] Last Admin: 09/04/19 08:47 Dose: 40 mg Documented by: Vitals/I&O/Wt Last Vital Signs Temp 97.7 F 09/04/19 19:54 Pulse 89 09/05/19 03:52 Resp 22 H 09/05/19 03:52 BP 113/65 09/05/19 03:52 Pulse Ox 100 09/05/19 03:52 09/04/19 09/05/19 09/05/19 22:59 06:59 14:59 Intake Total 720 / 720 60 / 780 Balance 720 / 370 60 / 430 Weight last 48 hrs Weight 112.718 kg Weight 112.763 kg Physical Exam Narrative: EXAM NARRATIVE: obese, comfortable in bed, NARD on hemodialysis vss heent- nc/at, eomi, anicteric neck- supple lungs - cta b/l heart reg, no rub abd soft, +BS ext RUE AVF w/ thrill and bruit no leg edema neuro- a,a, o x 3 skin normal mood normal Data : 09/05/19 03:30 09/05/19 03:30 A&P Additional A&P Information 1. CAD, + trop. s/p cardiac arrest at end of dialysis ysterday. - POD #1 s/p cardiac cath w/ circumflex stent 2. ESRD- HD MWF -elevated pth and phos- inc renvela. use zemplar w/ hd HD inow 4 hrs, 2k, remove 2-2.5 l as tolerated low k diet 3. 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 i cut the dose in half 4. bp well controlled 5. DM control 6. monitor tsh 7. gout- normal uric acid level of 5.6- dec allopurinol to 100 mg daily w/ESRD telenephrology services provided w/ RN in room. Attestations Medical Necessity Statement*: per cardiology. esrd on hd Time Spent in Patient Care: 16 - 35 minutes Coding Level of Care Code Acute Bread Wrapper for Kaycee Dejesus
[2019-09-05] MEDS: paricalcitol 2 mcg/mL SDV 1 mL 3 MCG IV (09:49)
[2019-09-05] MEDS: famotidine 20 mg Tablet PO (09:51)
[2019-09-05] MEDS: predniSONE 5 mg Tablet PO (09:51)
[2019-09-05] MEDS: atorvastatin 40 mg Tablet 80 MG PO (09:51)
[2019-09-05] MEDS: aspirin 81 mg EC Tablet PO (09:51)
[2019-09-05] MEDS: allopurinol 300 mg Tablet 100 MG PO (09:52)
[2019-09-05] MEDS: TORSEmide 20 mg Tablet 40 MG PO (09:52)
[2019-09-05] MEDS: b-complex-vitamin c Tablet 1 EACH PO (09:52)
--- NOTE | 2019-09-05 11:02 | P.DS_ITS ---
Discharge Providers Date of Admission: 09/03/19 11:07 Date of Discharge: September 05, 2019 Attending Provider at Admission: Elsie Persaud DO Attending Provider at Discharge: Elsie Persaud DO Primary Care Provider: Bj Mccracken Diagnoses at Discharge Discharge Diagnosis (1) Ventricular dysrhythmia: Status: Acute (2) Anemia: Status: Acute (3) Diabetes mellitus, type II: Status: Acute (4) CAD (coronary artery disease): Status: Acute (5) Hx of arteriovenostomy for renal dialysis: Status: Acute (6) Non-ST elevation MD (NSTEMI): Status: Acute Reason for Visit Reason for Visit: Reason For Visit: POST CODE Hospital Course Hospital Course: Patient was seen and evaluated in the emergency department and admitted to the hospital status post code with ventricular dysrhythmia. This occurred following dialysis, witnessed event and patient was immediately placed on AED, shock advised and delivered with ROSC. Patient was brought to the ER and admitted for further evaluation and treatment. Cardiology consultation was obtained and patient was taken to cardiac General Manager In Training. Noted to have stenosis in circumflex and PCI performed. Patient tolerated the procedure well with no postoperative complications. He did receive dialysis the day following angiogram. He was doing well on date of discharge with no further chest pain, no shortness of breath, no lightheadedness, no diaphoresis. Discussed with him plan for discharge to home, he verbalized understanding and agreed with plan Physical Exam Const: COMMON NORMALS: oriented x3 and alert GENERAL APPEARANCE: cooperative ORIENTATION/CONSCIOUSNESS: Yes awake, Yes oriented to person, Yes oriented to place and Yes oriented to time HENMT: COMMON NORMALS: normocephalic and head/scalp atraumatic HEAD & SCALP: normocephalic and atraumatic Eye: COMMON NORMALS: PERRL PUPIL: Yes PERRL Neck/C-Spine: COMMON NORMALS: supple GENERAL: Yes normal visual inspection Resp: COMMON NORMALS: normal respiratory effort and clear to auscultation bilaterally EFFORT & INSPECTION: Yes able to speak in complete sentences AUSCULTATION: clear to auscultation bilaterally, no rhonchi and no wheezes Cardio: COMMON NORMALS: regular rate, regular rhythm and no murmurs RATE: regular rate RHYTHM: regular rhythm GI: COMMON NORMALS: soft to palpation and non-tender INSPECTION: No abdominal distension AUSCULTATION: Yes normoactive bowel sounds PALPATION: Yes soft Extremity: COMMON NORMALS: no clubbing, cyanosis or edema and no calf tenderness Neuro: COMMON NORMALS: oriented x3, CN's II-XII intact bilaterally, moves all extremities and no focal motor deficits SENSORIUM/ORIENTATION: Yes alert, Yes oriented to person, Yes oriented to place and Yes oriented to time SPEECH: speech normal Psych: COMMON NORMALS: mental status grossly normal and cooperative Skin: COMMON NORMALS: no rashes or lesions noted GENERAL SKIN EXAM: no rashes or lesions noted Discharge Data Data Completed and Pending: Completed Studies During Hospitalization Category Date Time Status XR chest 1V humera ble [id number] Stat Exams 09/03/19 08:49 Completed CV echo complete* [id number] Routine Ultrasound 09/03/19 14:31 Completed Pending at discharge Category Date Time Status 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 Routin e Exams 09/04/19 11:11 Taken Magnesium AM LABS Lab 09/06/19 04:00 Ordered Phosphorus AM LAB S Lab 09/06/19 04:00 Ordered Labs from last 24 hours 09/05/19 09/05/19 09/05/19 06:21 03:30 03:30 WBC 8.0 RBC 2.98 L Hgb 9.5 L Hct 30.7 L MCV 103.0 H MCH 31.9 MCHC 30.9 RDW 16.6 H Plt Count 191 MPV 10.0 Neut % (Auto) 89.1 Lymph % (Auto) 6.2 [place] % (Auto) 4.1 Eos % (Auto) 0.0 Baso % (Auto) 0.0 Neut # (Auto) 7.1 Lymph # (Auto) 0.5 L [place] # (Auto) 0.3 Eos # (Auto) 0.0 Baso # (Auto) 0.0 Nucleated RBC % (a uto) 0 Nucleated RBCs # 0.0 APTT Sodium 134 L Potassium 6.1 H Chloride 98 Carbon Dioxide 23 Anion Gap 19.1 H BUN 53 H Creatinine 6.8 H* GFR Calculation 8.3 L Glucose 295 H POC Glucose 302 Calculated Osmolal ity 287 Uric Acid Calcium 9.8 Phosphorus Magnesium Total Bilirubin 0.2 AST 32 ALT 36 Alkaline Phosphata se 191 H Total Protein 6.7 Albumin 3.9 Globulin 2.8 09/05/19 09/04/19 09/04/19 03:30 20:21 18:59 WBC RBC Hgb Hct MCV MCH MCHC RDW Plt Count MPV Neut % (Auto) Lymph % (Auto) [place] % (Auto) Eos % (Auto) Baso % (Auto) Neut # (Auto) Lymph # (Auto) [place] # (Auto) Eos # (Auto) Baso # (Auto) Nucleated RBC % (a uto) Nucleated RBCs # APTT 40.2 H D Sodium Potassium Chloride Carbon Dioxide Anion Gap BUN Creatinine GFR Calculation Glucose POC Glucose 350 Calculated Osmolal ity Uric Acid 5.6 Calcium Phosphorus 3.6 Magnesium 2.3 Total Bilirubin AST ALT Alkaline Phosphata se Total Protein Albumin Globulin 09/04/19 09/04/19 09/04/19 16:38 15:42 11:00 WBC RBC Hgb Hct MCV MCH MCHC RDW Plt Count MPV Neut % (Auto) Lymph % (Auto) [place] % (Auto) Eos % (Auto) Baso % (Auto) Neut # (Auto) Lymph # (Auto) [place] # (Auto) Eos # (Auto) Baso # (Auto) Nucleated RBC % (a uto) Nucleated RBCs # APTT 210.0 H* Sodium Potassium Chloride Carbon Dioxide Anion Gap BUN Creatinine GFR Calculation Glucose POC Glucose 300 178 Calculated Osmolal ity Uric Acid Calcium Phosphorus Magnesium Total Bilirubin AST ALT Alkaline Phosphata se Total Protein Albumin Globulin Vitals: Last Vital Signs Temp 97.7 F 09/04/19 19:54 Pulse 89 09/05/19 03:52 Resp 22 H 09/05/19 03:52 BP 113/65 09/05/19 03:52 Pulse Ox 100 09/05/19 03:52 Discharge Plan Discharge Patient Disposition: Home, Self-Care Condition: Stable Prescriptions: New metoprolol succinate 25 mg Tablet Extended Release 24 Hr 12.5 mg PO DAILY 30 Days Qty: 30 RF: 0 aspirin [Enteric Coated Aspirin] 81 mg tablet,delayed release (DR/EC) 81 mg PO DAILY 30 Days Qty: 30 RF: 0 Continued Plavix 75 MG 75 mg PO BEDTIME RF: 0 allopurinol 300 mg Tablet 300 mg PO DAILY RF: 0 cyclosporine 100 mg Capsule 100 mg PO BID RF: 0 Levemir FlexTouch U-100 Insuln 80 UNITS 80 units SUBCUT BID RF: 0 Novolog Flexpen U-100 Insulin 18 UNITS See Rx Instructions .ROUTE .COMPLEX RF: 0 Renvela 1 TAB See Rx Instructions .ROUTE .COMPLEX RF: 0 famotidine 20 MG 20 mg PO DAILY RF: 0 prednisone 5 MG 5 mg PO DAILY RF: 0 rosuvastatin 20 MG 20 mg PO DAILY RF: 0 torsemide 20 MG 40 mg PO DAILY RF: 0 Multiple Vitamins Tablet 1 tab PO DAILY RF: 0 [place] 10-325 mg Tablet 1 tab PO QID PRN (Reason: Pain) RF: 0 [employer] Original 325-1,916-1,000 mg Tablet, Effervescent 1 tab PO DAILY PRN (Reason: unknown) RF: 0 Discharge Orders: Discharge Order (Routine); Ordered 09/05/19 Ordered By: Elsie Persaud Referrals: Veronica Estrada MD [Physician] - 7-10 days (Telephone Call ) Bj Mccracken [Primary Care Provider] - 4-7 days Discharge Diet: Usual diet, Cardiac and Diabetic Discharge Activity: Increase activity as tolerated and Limit activity as instructed Patient Instructions: Angiogram (DC), Post Angiogram Home Care Instructions Activity Restrictions/Additional Instructions: Follow-up with your primary care provider in 3 to 5 days Follow-up with cardiology office by phone call in 1 week Follow-up with your regular converting operator in 4 to 6 weeks Follow-up with nephrology as scheduled Continue with dialysis as scheduled on Tuesday and Tuesday No lifting more than 3 to 5 pounds for the next 3 days, no driving until that time. Call your physician or present to the ER for any acute illness or concern Started on metoprolol, take on nondialysis days Discharge Attestations Time Spent in Discharge Care*: greater than 30 min Quality Metrics Clinical Quality Measures During this hospital stay, did patient experience: AMI Clinical Trial Participant: No Contraindication to aspirin (AMI): Aspirin given Contraindication to statin: Statin prescribed Coding Level of Care Code Acute Cna Per Diem for [facility] Fwd Diagnoses Ventricular dysrhythmia I49.9 Anemia D64.9 Diabetes mellitus, type II E11.9 CAD (coronary artery disease) I25.10 Hx of arteriovenostomy for renal dialysis Z99.2 Non-ST elevation MD (NSTEMI) I21.4
[2019-09-05 11:21] LABS: Glucose Point of Care 196 mg/dL (70-110)
--- NOTE | 2019-09-05 19:59 | P.PN_ITS ---
Subjective Subjective: Interval history: Stable denies any complain. No more chest pain or arrhythmia. Patient is getting dialysis now. Medications: Reviewed: Yes Medication Review Details: Current Medications Acetaminophen (Tylenol) 650 mg PO Q6H PRN PRN Reason: Mild/Mod Pain Or Temp >/= 101 Hydrocodone Bitart/Acetaminophen ([place] 10-325 Mg) 1 tab PO QID PRN PRN Reason: Pain Last Admin: 09/04/19 21:23 Dose: 1 tab Documented by: Al Hydrox/Mg Hydrox/Simethicone (Maalox) 30 ml PO Q15M PRN PRN Reason: INDIGESTION Allopurinol (Zyloprim) 100 mg PO DAILY [facility] Last Admin: 09/04/19 08:49 Dose: 100 mg Documented by: Alprazolam (Xanax) 0.25 mg PO TID PRN PRN Reason: ANXIETY Aspirin (Aspirin Ec) 81 mg PO DAILY [facility] Last Admin: 09/04/19 08:48 Dose: 81 mg Documented by: Atorvastatin Calcium (Lipitor) 80 mg PO DAILY [facility] Last Admin: 09/04/19 08:48 Dose: 80 mg Documented by: Atropine Sulfate (Atropine) 0.5 mg IVP PRN PRN PRN Reason: Symptomatic bradycardia Clopidogrel Bisulfate (Plavix) 75 mg PO BEDTIME [facility] Last Admin: 09/04/19 21:24 Dose: 75 mg Documented by: Dextrose (D50w) 25 ml IVP ONCE PRN; Protocol PRN Reason: hypoglycemia protocol Dextrose (D50w) 50 ml IVP PRN PRN; Protocol PRN Reason: hypoglycemia protocol Famotidine (Pepcid Tab) 20 mg PO DAILY [facility] Last Admin: 09/04/19 08:48 Dose: 20 mg Documented by: Glucagon (Glucagen) 1 mg IM ONCE PRN; Protocol PRN Reason: Adult Acute Hypoglycemia Prot. Dextrose (D5w) 500 mls @ 100 mls/hr IV ONCE PRN; Protocol PRN Reason: Adult Acute Hypoglycemia Prot Insulin Aspart (Novolog) 0 unit SUBCUT BEDTIME [facility]; Protocol Last Admin: 09/04/19 21:22 Dose: 7 unit Documented by: Insulin Aspart (Novolog) 0 unit SUBCUT TIDWM [facility]; Protocol Last Admin: 09/05/19 07:53 Dose: 14 unit Documented by: Insulin Detemir (Levemir) 50 unit SUBCUT Q12H [facility] Last Admin: 09/05/19 07:54 Dose: 50 unit Documented by: Magnesium Hydroxide (Milk Of Magnesia) 30 ml PO DAILY PRN PRN Reason: CONSTIPATION Metoprolol Succinate (Toprol Xl) 12.5 mg PO DAILY [facility] Last Admin: 09/04/19 08:47 Dose: 12.5 mg Documented by: Morphine Sulfate (Morphine) 2 mg IVP Q4H PRN PRN Reason: SEVERE PAIN Multivitamins (Allbee-C) 1 each PO DAILY [facility] Last Admin: 09/04/19 08:48 Dose: 1 each Documented by: Naloxone HCl (Narcan) 0.1 mg IVP Q2M PRN PRN Reason: OPIATERV Nitroglycerin (Nitrostat) 0.4 mg SUBLINGUAL Q5M PRN PRN Reason: CHEST PAIN Non-Formulary Medication (Aspirin-Sod Bicarb-Citric Acid [[place] Original]) 1 tab PO DAILY PRN PRN Reason: unknown Non-Formulary Medication Cyclosporine 50 Mg 1 each PO BID [facility] Last Admin: 09/04/19 18:20 Dose: Not Given Documented by: Ondansetron HCl (Zofran) 4 mg IVP Q6H PRN PRN Reason: NAUSEA AND VOMITING Prednisone (Prednisone) 5 mg PO DAILY [facility] Last Admin: 09/04/19 08:49 Dose: 5 mg Documented by: Sevelamer Carbonate (Renvela) 800 mg PO TIDWM [facility] Last Admin: 09/05/19 07:53 Dose: 800 mg Documented by: Temazepam (Restoril) 15 mg PO BEDTIME PRN PRN Reason: INSOMNIA Last Admin: 09/05/19 00:03 Dose: 15 mg Documented by: Torsemide (Demadex) 40 mg PO DAILY [facility] Last Admin: 09/04/19 08:47 Dose: 40 mg Documented by: Vitals/I&O/Wt Last Vital Signs Temp 97.7 F 09/05/19 12:17 Pulse 78 09/05/19 12:17 Resp 15 09/05/19 12:17 BP 103/66 09/05/19 12:17 Pulse Ox 99 09/05/19 12:17 09/05/19 09/05/19 09/05/19 06:59 14:59 22:59 Intake Total 60 / 780 240 / 240 Balance 60 / 430 240 / 240 Weight last 48 hrs Weight 248 lb 8 oz Weight 248 lb 9.6 oz Physical Exam Narrative: EXAM NARRATIVE: GENERAL: Patient is alert, awake and oriented x3. NECK: No jugular vein distension. HEENT: No cyanosis. No icterus. No pallor. HEART: Regular S1 and S2. No murmur, rub or gallop. LUNGS: Clear to auscultate bilaterally. EXTREMITIES: Lower extremities with trace edema bilaterally.Right groin without any hematoma Data : 09/05/19 03:30 09/05/19 03:30 A&P Assessment and plan (1) Ventricular dysrhythmia: Status post PCI to mid circumflex.. Patient is doing fine from a cardiac vascular perspective and no more arrhythmia. Continue current regimen including Plavix. Patient can be discharged from a cardiovascular perspective after dialysis. Status: Acute Code(s): I49.9 - Cardiac arrhythmia, unspecified (2) Anemia: Stable. Continue to monitor Status: Acute Code(s): D64.9 - Anemia, unspecified (3) Diabetes mellitus, type II: As per medicine Status: Acute Code(s): E11.9 - Type 2 diabetes mellitus without complications (4) CAD (coronary artery disease): Stable. Status: Acute Qualifiers: Coronary Disease-Associated Artery/Lesion type: bypass graft [place] vs. transplanted heart: [place] heart Associated angina: angina presence unspecified Qualified Code(s): I25.810 - Atherosclerosis of coronary artery bypass graft(s) without angina pectoris Code(s): I25.10 - Atherosclerotic heart disease of [place] coronary artery without angina pectoris (5) Hx of arteriovenostomy for renal dialysis: Nephrology on the board Status: Acute Code(s): Z99.2 - Dependence on renal dialysis (6) Non-ST elevation NM (NSTEMI): Patient is on hemodialysis. Left ventricle hypertrophy status post shock at the same time could be secondary to ischemic component. Recommended adding metoprolol to the regimen continue aspirin statin Plavix and heparin. We will proceed with left heart catheterization/PCI indicated tomorrow. Status: Acute Code(s): I21.4 - Non-ST elevation (NSTEMI) myocardial infarction Attestations Medical Necessity Statement*: Patient discharged from a cardiac vascular perspective. Follow with cardiology in 7 days and your family practice medical doctor Dr. 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 transplanted heart: [place] heart Associated angina: angina presence unspecified Hx of arteriovenostomy for renal dialysis Z99.2 Non-ST elevation NM (NSTEMI) I21.4
== END 2019-09-05 14:05 | disposition home or self-care (01) | DRG 246 ==
LOC: ER 12:15 → CSU 13:39
PROVIDERS: Internal Medicine Cardiovascular Disease; Internal Medicine Nephrology; Admitting Provider Family Medicine; Emergency Provider Family Medicine; PCP Internal Medicine Nephrology; Visit Provider Family Medicine
PROC: 027034Z Dilation of Coronary Artery, One Artery with Drug-eluting Intraluminal Device, Percutaneous Approach (ICD-10-PCS; principal; 2019-09-04 10:00)
PROC: 027034Z Dilation of Coronary Artery, One Artery with Drug-eluting Intraluminal Device, Percutaneous Approach (ICD-10-PCS; 2019-09-04 10:00)
DX: I49.9 Cardiac arrhythmia, unspecified (principal); I21.4 Non-ST elevation (NSTEMI) myocardial infarction; N18.6 End stage renal disease; I25.810 Atherosclerosis of coronary artery bypass graft(s) without angina pectoris; E11.9 Type 2 diabetes mellitus without complications; M10.9 Gout, unspecified; D63.1 Anemia in chronic kidney disease; Z99.2 Dependence on renal dialysis; Z79.82 Long term (current) use of aspirin; Z87.891 Personal history of nicotine dependence; Z79.02 Long term (current) use of antithrombotics/antiplatelets; Z79.4 Long term (current) use of insulin; I10 Essential (primary) hypertension; I25.10 Atherosclerotic heart disease of native coronary artery without angina pectoris
CPT/HCPCS: 12345; 36415; 36416; 51702; 51798; 71045; 80053; 81001; 82009; 82310; 82962; 83690; 83735; 83970; 84100; 84443; 84484; 84550; 85025; 85347; 85730; 86803; 87340; 93005; 93306; 93455; 93571; 94660; 96372; 96375; 99284; C1725; C1769; C1874; C1887; C1894; C9600; J0153; J1644; J1815; J2001; J2250; J2501; J2930; J3010; J7030; J7512; J7515; Q0163; Q3014; Q9967

== ENCOUNTER → 2020-04-15 13:03 | Outpatient (BNVA) | payer MEDICARE, OTHER, SELFPAY | PROVIDERS: PCP Internal Medicine Nephrology; Visit Provider Podiatrist Foot & Ankle Surgery | DX: M19.072 Primary osteoarthritis, left ankle and foot (principal); M19.071 Primary osteoarthritis, right ankle and foot; M21.612 Bunion of left foot; M21.611 Bunion of right foot; M79.672 Pain in left foot; M79.671 Pain in right foot | CPT/HCPCS: 73630 ==

== ENCOUNTER 2020-05-05 11:04 | Outpatient (CLI) | payer MEDICARE, OTHER, SELFPAY ==
[2020-05-05 11:51] LABS: D Dimer 1.65 ug/mIFEU (0-0.59)
== END 2020-05-05 11:05 | disposition home or self-care (01) ==
LOC: LAB 11:08
PROVIDERS: PCP Internal Medicine Nephrology; Visit Provider Nurse Practitioner Family
DX: R06.02 Shortness of breath (principal); R07.9 Chest pain, unspecified
CPT/HCPCS: 85378

== ENCOUNTER 2020-08-28 13:29 | Outpatient (CLI) | payer MEDICARE, OTHER, SELFPAY ==
--- NOTE | 2020-08-28 14:00 | CT_ITS ---
WS: [id number] CT scan of the chest without IV contrast, additional two-dimensional coronal and sagittal reconstruct ion was performed. 08/28/2020 Clinical Data: Shortness of breath Comparison: PA and lateral chest, 08/05/2020 DLP: 1163.[address] scans at [facility] use at least one of these dose optimization techniques: automat ed exposure control; mA and/or kV adjustment per patient size (includes targeted exams where dose is matched to clinical indication); or iterative reconstruction. Findings: No nodules or masses are seen. There is interstitial thickening and pleural thickening throughout the lungs. Small bilateral pleural effusions are noted. No acute pneumonia is present. The heart size is enlarged with no pericardial effusion. Coronary artery stents are in position. There is aortic valvu lar calcification Midline sternotomy sutures are noted. The pulmonary arterial system and thoracic ao rta demonstrate no dilatations. There is calcification of the wall of the thoracic aorta but no disse ction is seen. There are numerous small mediastinal lymph nodes. There is no axillary adenopathy. The upper abdomen demonstrates clips in the gallbladder fossa from a cholecystectomy. There is dense calcification of the wall of the splenic artery. The left kidney is atrophic. Degenerative changes of thoracic vertebral bodies is noted. CT/CT chest wo con [id number] Impression: 1. Prominent bilateral interstitial thickening which may represent chronic lung disease. 2. Bilateral pleural thickening and small bilateral pleural effusions. 3. Cardiomegaly. 4. Cholecystectomy and atrophic left kidney.
== END 2020-08-28 13:30 | disposition home or self-care (01) ==
LOC: RADWPI 13:30
PROVIDERS: PCP Nurse Practitioner Family; Visit Provider Internal Medicine Critical Care Medicine
DX: R06.02 Shortness of breath (principal); Z90.49 Acquired absence of other specified parts of digestive tract; N26.1 Atrophy of kidney (terminal); I51.7 Cardiomegaly; J90 Pleural effusion, not elsewhere classified
CPT/HCPCS: 71250; 87635

== ENCOUNTER 2020-09-02 06:42 | Outpatient (CLI) | payer MEDICARE, OTHER, SELFPAY ==
--- NOTE | 2020-09-02 13:08 | PFTS_ITS ---
Date of Study:09/02/20 Date of Dictation: MECHANICS: Forced vital capacity (FVC) is reduced. Forced expiratory volume in one second (FEV1) is reduced. FEV1/FVC is normal. FLOW VOLUME LOOP: Narrow. LUNG VOLUMES: Total lung capacity (TLC) is used. Residual volume (RV) is reduced. DIFFUSING CAPACITY FOR CARBON MONOXIDE: Mildly reduced. INTERPRETATION: The pulmonary function tests are consistent with moderately severe restriction. Lung volumes are consistent with restrictive lung disease. Gas exchange (DLCO) is mildly reduced. MTDD
== END 2020-09-02 06:43 | disposition home or self-care (01) ==
LOC: RT 06:42
PROVIDERS: PCP Nurse Practitioner Family; Visit Provider Internal Medicine Critical Care Medicine
DX: R06.02 Shortness of breath (principal)
CPT/HCPCS: 94010; 94726; 94729

== ENCOUNTER 2020-09-06 18:59 | Inpatient (IN) | payer MEDICARE, OTHER, SELFPAY ==
[2020-09-06 19:01] VITALS: BP 155/92; PULSE 93; RESP 18; TEMP 36.4; O2SAT 97; BMI 34.2
--- NOTE | 2020-09-06 19:22 | XRR_ITS ---
PROCEDURE INFORMATION: Exam: XR Chest Exam date and time: 09/06/2020 7:31 PM Age: 65 years old Clinical indication: Shortness of breath; Chest pain; Type not specified; Prior surgery; Surgery type: Cabg, stents; Additional info: Cp TECHNIQUE: Imaging protocol: XR of the chest Views: 1 view. COMPARISON: CT chest [facility] [id number] 08/28/2020 2:42 PM FINDINGS: Lungs: Fine reticular interstitial changes in the lung periphery most consistent with interstitial fibrosis. No focal pulmonary consolidation. Mild hyperinflation of lungs. Pleural spaces: Unremarkable. No pleural effusion. No pneumothorax. Heart/Mediastinum: Cardiac enlargement is unchanged from prior. Prior CABG. Bones/joints: Unremarkable. XR/XR chest 1V portable [id number] IMPRESSION: 1. No convincing evidence of focal pneumonia. 2. Background emphysema and nonspecific interstitial fibrosis.
--- NOTE | 2020-09-06 19:23 | ECG_ITS ---
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 Measurements Intervals [place] Rate: 95 P: 45 DE: 165 QRS: -24 QRSD: 102 T: 43 QT: 365 QTc: 461 Interpretive Statements SINUS RHYTHM POSSIBLE LEFT ATRIAL ENLARGEMENT [-0.1mV P WAVE IN V1/V2] BORDERLINE LEFT AXIS DEVIATION [QRS AXIS < -20] MODERATE ST DEPRESSION [0.05+ mV ST DEPRESSION] Compared to ECG 09/03/2019 14:39:19 ST (T wave) deviation now present Myocardial infarct finding no longer present Electronically Signed On 09-07-2020 18:03:03 CDT by Meet Sweeney M.D. [id number]
[2020-09-06 20:36] LABS: Basophils % 0.4 %; Eosinophils % 0.2 %; Hematocrit 31.6 % (42.0-52.0); Hemoglobin 9.7 g/dL (11.7-16.6); Lymphocytes # 0.3 10^3/uL (0.8-4.8); Lymphocytes % 5.3 %; Mean Corpuscular HGB Conc 30.7 g/dL (30.0-36.0); Mean Corpuscular Hemoglobin 31.4 pg (28.0-34.0); Mean Corpuscular Volume 102.3 fL (80-94); Mean Platelet Volume 10.6 fL (7.4-10.4); Monocytes # 0.3 10^3/uL (0.2-0.9); Monocytes % 4.4 %; Neutrophils # 5.05 10^3/uL (1.8-7.7); Neutrophils % 88.6 %; Nucleated Red Blood Cells % 0 %; Platelet Count 165 10^3/cmm (130-400); Red Blood Count 3.09 10^6/uL (4.1-5.3); Red Cell Distribution Width 16.5 % (12.1-15.1); White Blood Count 5.7 10^3/uL (4.0-10.0)
[2020-09-06 20:41] LABS: INR 1.03 (0.8-1.2)
--- NOTE | 2020-09-06 21:23 | ECG_ITS ---
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 Measurements Intervals [place] Rate: 75 P: 50 [place]: 156 QRS: 15 QRSD: 102 T: 43 QT: 393 QTc: 442 Interpretive Statements SINUS RHYTHM POSSIBLE LEFT ATRIAL ENLARGEMENT [-0.1mV P WAVE IN V1/V2] Compared to ECG 09/06/2020 19:02:35 ST (T wave) deviation no longer present Electronically Signed On 09-07-2020 18:14:30 CDT by Meet Sweeney M.D. [id number]
[2020-09-06 21:26] LABS: Troponin(5th) Baseline 139 ng/L (0-15)
[2020-09-06 21:31] LABS: Alanine Aminotransferase 23 U/L (0-41); Albumin Level 4.2 g/dL (3.5-5.2); Alkaline Phosphatase 121 IU/L (40-130); Aspartate Amino Transferase 28 U/L (0-40); Blood Urea Nitrogen 46 mg/dL (8-23); Calcium 8.6 mg/dL (8.5-10.5); Carbon Dioxide 20 mmol/L (22-29); Chloride 97 mmol/L (98-107); Globulin 2.4 g/dL (1.3-4.6); Glomerular Filtration Rate 10.3 mL/min (90-130); Glucose 373 mg/dL (65-115); Lipase 36 U/L (13-60); NT Pro B Type Natriuretic Pept 3111 pg/mL (0-125); Osmolality Calculated 311 mOsm/kg (285-295); Sodium 137 mmol/L (136-145); Total Bilirubin 0.3 mg/dL (0.15-1.2); Total Protein 6.6 g/dL (6.6-8.7)
[2020-09-06 21:46] LABS: Anion Gap 25.7 (5-19); Potassium 5.7 mmol/L (3.5-5.1)
--- NOTE | 2020-09-06 21:54 | PC.NURSE ---
EKG done at 2119 and shown to ER doctor.
[2020-09-06 22:39] LABS: Ketone (Acetest) Serum Negative (Negative)
[2020-09-06 23:07] LABS: Troponin 5 2HR 223.6 ng/L (0-15); Troponin 5 2HR Delta 84.6 ABS# (0-10)
[2020-09-06 23:15] VITALS: BP 167/94; PULSE 80; RESP 21; O2SAT 92
--- NOTE | 2020-09-06 23:15 | ED_ITS ---
HPI - Chest Pain General: Chief Complaint: Chest Pain Stated Complaint: CHEST PAIN Time Seen by Provider: 09/06/20 19:03 Source: patient and family () Mode of arrival: EMS Limitations: no limitations History of Present Illness: HPI narrative: 65-year-old male with prior history of coronary artery disease, prior CABG, prior PCI who is also a diabetic and has end-stage renal disease on hemodialysis Wednesdays and Fridays. He presents to the emergency department with chest pain that he says has been going on all day. He has a history of intermittent chest pain but usually does not last long. This was continuous and so he was concerned and decided to be evaluated in the emergency department. He did take a full-strength aspirin today. He was given nitroglycerin in the ambulance which resolved his pain. He is currently chest pain-free MD complaint: chest pain Pertinent past history: coronary artery disease, prior OH, [employer], known aortic aneurysm and CABG Onset (ago): hour(s) Timing of current episode: constant Prior episodes: Yes Onset: during rest Pain location: left chest Pain radiation: none Severity: moderate Relieving factors: nitroglycerin Exacerbating factors: exertion Associated symptoms: Deny abdominal pain, diaphoresis, fever(s), leg edema, nausea, palpitations, sense of impending doom, syncope or vomiting Treatment prior to arrival: aspirin, nitroglycerin and oxygen Review of Systems General: Reports: 10 or more systems reviewed and unremarkable except in HPI and below Const: Denies: fever(s) or diaphoresis Card: Denies: palpitations or syncope GI: Denies: abdominal pain, nausea or vomiting PFS ED PFSH: Medical History (Updated 09/07/20 @ 00:41 by [place] M[place] [facility] [place] Anemia 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 CAD (coronary artery disease) Diabetes mellitus, type II ESRD (end stage renal disease) HTN (hypertension) with goal to be determined Myocardial infarction Right inguinal hernia Surgical History H/O heart artery stent History of four vessel coronary artery bypass graft History of kidney transplant Hx laparoscopic cholecystectomy Hx of arteriovenostomy for renal dialysis Hx of cardiac cath Hx of kidney transplant Hx of lumbosacral spine surgery Family History Mother Dementia CAD (coronary artery disease) Aortic stenosis Father Chronic kidney disease (CKD) ESRD Cancer Prostate cancer Brother CAD (coronary artery disease) Diabetes Social History Smoking and tobacco status: former smoker Quit status (tobacco): has quit using tobacco Year quit tobacco: 2001 Former quit date comment: Hx of 2PPD x 20 Years Smoking risk assessment/counseling performed?: No Alcohol intake: never Counseling given: No Counseling given: No Lives independently: Yes Household members: spouse Marital status: Current occupational status: disabled History of recent travel: No Current gender identity: Male Physical Exam Const: COMMON NORMALS: no acute distress, average body habitus, patient oriented x3, no limitations, healthy appearing, alert and well nourished HENMT: COMMON NORMALS: normocephalic, atraumatic and moist oral mucous membranes HEAD & SCALP: normocephalic and atraumatic Eye: COMMON NORMALS: Equal, round and reactive pupils present, EOMs intact bilaterally, conjunctivae normal and no scleral icterus CONJUNCTIVA: Yes conjunctivae normal PUPIL: Yes Equal, round and reactive pupils present Neck/C-Spine: COMMON NORMALS: no meningeal signs and no JVD Chest: COMMONS NORMALS: normal inspection of the chest and normal palpation of entire chest wall CHEST: Yes Surgical scars present (Chest) (surgical scar) Resp: COMMON NORMALS: normal respiratory effort, No retractions, No use of accessory muscles, clear to auscultation bilaterally and percussion normal AU SCULTATION: clear to auscultation bilaterally PERCUSSION: percussion normal Cardio: COMMON NORMALS: no JVD, regular rate, regular rhythm, S1 normal heart sound present, S2 normal heart sound present, No gallops present (Cardio), No clicks present (Cardio), No murmurs present (Cardio), No rub (Cardio) and P eripheral pulses 2+ throughout RATE: regular rate RHYTHM: regular rhythm HEART SOUNDS: S1 normal heart sound present and S2 normal heart sound present PERIPHERAL PULSES: Peripheral pulses 2+ throughout GI: COMMON NORMALS: Normal to inspection, nondistended, normoactive bowel sounds present, Soft to palpation, non-tender, No hepatosplenomegaly present, no masses and no bruits PALPATION: Yes Soft to palpation and Yes No hepatosplenomegaly present Extremity: COMMON NORMALS: normal to inspection, full ROM, capillary refill normal, no calf tenderness and no pedal edema Neuro: COMMON NORMALS: patient oriented x3 SENSORIUM/ORIENTATION: Yes alert MENINGEAL SIGNS: Yes no meningeal signs Skin: COMMON NORMALS: no rashes or lesions noted, no wounds, turgor normal, no jaundice, no petechiae and no mottling GENERAL SKIN EXAM: no rashes or lesions noted and turgor normal Course Reevaluation(s): Reevaluation #1: Discussed his labs and imaging findings with him. 2-hour troponin has a pretty significant delta which is concerning for a non-STEMI. Advised that he will benefit from hospital admission and management of the non-STEMI and possible PCI and stent placement. He voiced understanding and is in agreement with the plan. Time: 23:16 Consultations: Consultation #1: Discussed the patient with Dr. Davis, hospitalist and he kindly accepted patient to his service. Time: 23:18 Consultation #2: Discussed this patient with Dr. Sweeney, data collection technician. He agreed that the patient should be admitted and anticoagulated and will likely need a PCI. Time: 23:19 Vital Signs: Vital signs: Vital Signs Temperature 97.5 F L 09/06/20 19:01 Pulse Rate 93 09/06/20 19:01 Respiratory Rate 18 09/06/20 19:01 Blood Pressure 155/92 09/06/20 19:01 Pulse Oximetry 97 09/06/20 19:01 MDM - Chest Pain MDM Narrative: Medical decision making narrative: 65-year-old male with a history of diabetes mellitus, end-stage renal disease on hemodialysis Wednesdays and Fridays, prior CABG, prior OH, who presents to the emergency department with persistent chest pain. Evaluation in the emergency department is concerning for a non-STEMI with a significantly elevated baseline troponin and a significant 2-hour delta. Because of his renal function he will be managed using the heparin drip and will be admitted to the cardiac stepdown unit for further evaluation and management. He will be evaluated by cardiology for possible PCI. Medical Records: Attestation: I reviewed the patient's medical records. Lab Data: Attestation: I reviewed the patient's lab results. Labs: Lab Results 09/06/20 09/06/20 09/06/20 Range/Units 19:10 19:10 19:10 WBC 5.7 (4.0-10.0) 10^3/ uL Corrected WBC Beer Brewer RBC 3.09 L (4.1-5.3) 10^6/u L Hgb 9.7 L (11.7-16.6) g/dL Hct 31.6 L (42.0-52.0) % MCV 102.3 H (80-94) fL MCH 31.4 (28.0-34.0) pg MCHC 30.7 (30.0-36.0) g/dL RDW 16.5 H (12.1-15.1) % Plt Count 165 (130-400) 10^3/c mm MPV 10.6 H (7.4-10.4) fL Gran % Beer Brewer Neut % (Auto) 88.6 % Lymph % (Auto) 5.3 % Knott % (Auto) 4.4 % Eos % (Auto) 0.2 % Baso % (Auto) 0.4 % Neut # (Auto) 5.05 (1.8-7.7) 10^3/u L Lymph # (Auto) 0.3 L (0.8-4.8) 10^3/u L Knott # (Auto) 0.3 (0.2-0.9) 10^3/u L Eos # (Auto) 0.0 (0.0-0.8) 10^3/u L Baso # (Auto) 0.0 (0.0-0.1) 10^3/u L Absolute Gran (aut o) Beer Brewer Nucleated RBC % (a uto) 0 % Nucleated RBCs # 0.0 /100WBC PT 13.80 (12.1-14.9) SECO NDS INR 1.03 (0.8-1.2) Sodium 137 (136-145) mmol/L Potassium 5.7 H (3.5-5.1) mmol/L Chloride 97 L (98-107) mmol/L Carbon Dioxide 20 L (22-29) mmol/L Anion Gap 25.7 H (5-19) BUN 46 H (8-23) mg/dL Creatinine 5.6 H* (0.7-1.2) mg/dL GFR Calculation 10.3 L (90-130) mL/min Glucose 373 H (65-115) mg/dL Calculated Osmolal ity 311 H (285-295) mOsm/k g Calcium 8.6 (8.5-10.5) mg/dL Total Bilirubin 0.3 (0.15-1.2) mg/dL AST 28 (0-40) U/L ALT 23 (0-41) U/L Alkaline Phosphata se 121 (40-130) IU/L Troponin T Baselin e (0-15) ng/L Troponin T 120 Min [place] (0-15) ng/L Delta Troponin T (0-10) ABS# NT-Pro-B Natriuret Pep 3111 H (0-125) pg/mL Total Protein 6.6 (6.6-8.7) g/dL Albumin 4.2 (3.5-5.2) g/dL Globulin 2.4 (1.3-4.6) g/dL Lipase 36 (13-60) U/L Serum Ketones (Negative) 09/06/20 09/06/20 09/06/20 Range/Units 19:10 21:55 21:55 WBC (4.0-10.0) 10^3/ uL Corrected WBC RBC (4.1-5.3) 10^6/u L Hgb (11.7-16.6) g/dL Hct (42.0-52.0) % MCV (80-94) fL MCH (28.0-34.0) pg MCHC (30.0-36.0) g/dL RDW (12.1-15.1) % Plt Count (130-400) 10^3/c mm MPV (7.4-10.4) fL Gran % Neut % (Auto) % Lymph % (Auto) % Knott % (Auto) % Eos % (Auto) % Baso % (Auto) % Neut # (Auto) (1.8-7.7) 10^3/u L Lymph # (Auto) (0.8-4.8) 10^3/u L Knott # (Auto) (0.2-0.9) 10^3/u L Eos # (Auto) (0.0-0.8) 10^3/u L Baso # (Auto) (0.0-0.1) 10^3/u L Absolute Gran (aut o) Nucleated RBC % (a uto) % Nucleated RBCs # /100WBC PT (12.1-14.9) SECO NDS INR (0.8-1.2) Sodium (136-145) mmol/L Potassium (3.5-5.1) mmol/L Chloride (98-107) mmol/L Carbon Dioxide (22-29) mmol/L Anion Gap (5-19) BUN (8-23) mg/dL Creatinine (0.7-1.2) mg/dL GFR Calculation (90-130) mL/min Glucose (65-115) mg/dL Calculated Osmolal ity (285-295) mOsm/k g Calcium (8.5-10.5) mg/dL Total Bilirubin (0.15-1.2) mg/dL AST (0-40) U/L ALT (0-41) U/L Alkaline Phosphata se (40-130) IU/L Troponin T Baselin e 139 H* (0-15) ng/L Troponin T 120 Min [place] 223.6 H (0-15) ng/L Delta Troponin T 84.6 H* (0-10) ABS# NT-Pro-B Natriuret Pep (0-125) pg/mL Total Protein (6.6-8.7) g/dL Albumin (3.5-5.2) g/dL Globulin (1.3-4.6) g/dL Lipase (13-60) U/L Serum Ketones Negative (Negative) Imaging Data^: CXR: Attestation: I personally reviewed and interpreted this imaging study as fo llows: Radiologist's impression: [address] [place] [address] XRay Report Signed Patient: Delonte Bahena #: [id number] : 6Acct#:[id number] Age/Sex: 65 / MADM Date: 09/06/20 Loc: ERRoom/Bed: Attending Dr: Ordering Provider/Ordering MD: Pura Mota [place] [facility] [place] of Service: 09/06/20 Procedure(s): XR chest 1V portable [id number] Accession Number(s): [id number] Report Number: [id number] PROCEDURE INFORMATION: Exam: XR Chest Exam date and time: 09/06/2020 7:31 PM Age: 65 years old Clinical indication: Shortness of breath; Chest pain; Type not specified; Prior surgery; Surgery type: Cabg, stents; Additional info: Cp TECHNIQUE: Imaging protocol: XR of the chest Views: 1 view. COMPARISON: CT chest [facility] [id number] 08/28/2020 2:42 PM FINDINGS: Lungs: Fine reticular interstitial changes in the lung periphery most consistent with interstitial fibrosis. No focal pulmonary consolidation. Mild hyperinflation of lungs. Pleural spaces: Unremarkable. No pleural effusion. No pneumothorax. Heart/Mediastinum: Cardiac enlargement is unchanged from prior. Prior CABG. Bones/joints: Unremarkable. XR/XR chest 1V portable [id number] IMPRESSION: 1. No convincing evidence of focal pneumonia. 2. Background emphysema and nonspecific interstitial fibrosis. Dictated By:Roger Ryan Signed By:Aurelio Ryan Date/Time:09/06/202053 DD/ 52 EKG Data^: EKG 1: Attestation: I personally reviewed and interpreted this EKG as follows: EKG interpretation date: 09/06/20 EKG interpretation time: 19:02 Prior EKG tracings: not available for review Interpretation: Sinus rhythm. Heart rate 95 bpm. Left atrial enlargement. No ST changes EKG 2: Attestation: I personally reviewed and interpreted this EKG as follows: EKG interpretation date: 09/06/20 EKG interpretation time: 21:29 Prior EKG tracings: available for review Interpretation: Sinus rhythm. Heart rate 75 bpm. Left atrial enlargement. No ST changes. No significant changes from earlier. Critical Care Time Critical Care Time: Critical Care Time: Yes Total Critical Care Time: 45 Attestation: This case had a high probability of a clinically significant, sudden, or life threatening deterioration of this patient's condition which required my full and direct attention, intervention and personal management. 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
--- NOTE | 2020-09-06 23:59 | PM.HP ---
Providers/Chief Complaint Primary Care Provider: JAIME Clement Chief Complaint: CHEST PAIN History of Present Illness 65 year old with past medical history of hypertension, dyslipidemia, end stage renal disease s/p failed renal transplant now on HD (M/W/F), chronic immunosuppression, diabetes mellitus, obstructive sleep apnea on cpap, COVID-19 infection(04/2020) leading to chronic cough with hemoptysis, 40 pack year history of tobacco abuse quit in 2001, chronic grade 2 diastolic dysfunction, coronary artery disease s/p hx of CABG and cardiac arrest in 08/2019 after with he required PCI of left circumflex artery who is now presenting with chest pain. Started earlier on 09/06/20. Radiation to left upper extremity. Associated with shortness of breath as well. Patient stated pain resolved after he received SL NGT in EMS. No recently fever, chills, nausea or vomiting. Tolerated HD on tuesday with out any issues. No recent bleeding events. Follow with Dr. Estrada on a outpatient bases. Laboratory work up on arrival showed a WBC of 5.7, hemoglobin of 9.7, hematocrit of 31.6, platlet count of 165, Inr of 1.03. Sodium of 137, potassium of 5.7, chloride of 97, bicarbonate of 20 , BUN of 46, and a creatinine of 5.6 plus a glucose of 373. Troponin T baseline of 139 which increased to 223.6 at 120 min. Probnp of 3111. Serum ketones negative. Imaging studies included a chest xray which did not show any evidence of focal pneumonia, only emphysematous changes and non-specific interstitial fibrosis. Vital signs in ER showed a blood pressure of 155/92, HR of 93, RR of 18, temp of 97.5, and oxygen saturation of 97% on 3L via NC. In ER patient was started on heparin Gtt and admitted to hospital as well as consultation with cardiology. Cardiac cath report On 09/04/2019 he underwent coronary angiogram and was found to have a proximal 50% and mid 80% circumflex lesion. The mid circumflex lesion was analyzed with FFR and found to be significant at 0.74, and was treated with drug-eluting stent. The proximal lesion was also analyzed with FFR and found to be not significant. He also had a chronically occluded SVG to RCA and obtuse marginal. The RCA was patent without significant in-stent restenosis, multiple stents present. VU was not visualized, appeared atretic. No significant stenosis in the LAD. He was discharged from the hospital on 09/05/2019. Review of Systems General: Reports: 10 or more systems reviewed and unremarkable except in HPI and below Medications/Allergies Home Medications Medication Instructions Recorded Confirmed Last Taken Type Levemir FlexTouch U-100 Insuln 80 units SUBCUT BID 08/07/19 09/07/20 09/03/19 History Novolog Flexpen U-100 Insulin See Rx Instructions .ROUTE .COMPLEX 08/07/19 09/07/20 08/07/19 History cyclosporine 100 mg PO BID 08/07/19 09/07/20 09/03/19 History famotidine 20 mg PO DAILY 08/07/19 09/07/20 09/03/19 History prednisone 5 mg PO DAILY 08/07/19 09/07/20 09/03/19 History rosuvastatin 20 mg PO DAILY 08/07/19 09/07/20 09/02/19 History torsemide 40 mg PO DAILY 08/07/19 09/07/20 09/03/19 History Layla-Rochert Original 1 tab PO DAILY PRN 09/03/19 09/07/20 09/03/19 04:00 History hydrocodone-acetaminophen [[place]] 1 tab PO QID PRN 09/03/19 09/07/20 09/03/19 History multivitamin [Multiple Vitamins] 1 tab PO DAILY 09/03/19 09/07/20 Unknown History clopidogrel 75 mg tablet 75 mg PO DAILY #30 tab 02/01/20 09/07/20 Unknown Rx AFO #1 ea 05/01/20 08/26/20 Unknown Rx Diabetic shoes with molded inserts #1 ea 05/01/20 08/26/20 Unknown Rx aspirin 81 mg tablet,delayed 81 mg PO DAILY 08/05/20 09/07/20 Unknown History release sevelamer carbonate 800 mg tablet 800 mg PO TID 08/05/20 08/26/20 Unknown History Allergies Allergy/AdvReac Type Severity Reaction Status Date / Time Iodinated Contrast Media Allergy Intermediate ADR-Itching Verified 09/06/20 19:09 PFSH Acute PFSH: Medical History (Updated 09/07/20 @ 00:41 by Pura Mota MD, [facility] [place]) Anemia 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 CAD (coronary artery disease) Diabetes mellitus, type II ESRD (end stage renal disease) HTN (hypertension) with goal to be determined Myocardial infarction Right inguinal hernia Surgical History H/O heart artery stent History of four vessel coronary artery bypass graft History of kidney transplant Hx laparoscopic cholecystectomy Hx of arteriovenostomy for renal dialysis Hx of cardiac cath Hx of kidney transplant Hx of lumbosacral spine surgery Family History Mother Dementia CAD (coronary artery disease) Aortic stenosis Father Chronic kidney disease (CKD) ESRD Cancer Prostate cancer Brother CAD (coronary artery disease) Diabetes Social History Smoking and tobacco status: former smoker Quit status (tobacco): has quit using tobacco Year quit tobacco: 2001 Former quit date comment: Hx of 2PPD x 20 Years Smoking risk assessment/counseling performed?: No Alcohol intake: never Counseling given: No Counseling given: No Lives independently: Yes Household members: spouse Marital status: Current occupational status: disabled History of recent travel: No Current gender identity: Male Vitals/I&O/Wt Last Vital Signs Temp 97.5 F L 09/06/20 19:01 Pulse 93 09/06/20 19:01 Resp 18 09/06/20 19:01 BP 155/92 09/06/20 19:01 Pulse Ox 97 09/06/20 19:01 Weight last 48 hrs Weight 111.13 kg Physical Exam Narrative: EXAM NARRATIVE: General : alert, awake oriented x3, in mild distress due to chronic back pain HEENT: Grossly unremarkable CVS : NSR CHEST : non-labored respiration ABD: soft NT/ND Ext - no-edema Data : 09/06/20 19:10 09/06/20 19:10 A&P Assessment and plan (1) NSTEMI (non-ST elevated myocardial infarction): Status: Acute (2) Hyperkalemia: Status: Acute (3) ESRD (end stage renal disease) on dialysis: Status: Acute Non-STEMI in hx of CAD s/p CABG(15yr/ago) multiple PCI/Stents - Troponin T-> 139 -> 223.6(120min) - follow up on 6hr - EKG - no evidence of ST elevation - Started on IV heparin gtt per ACS protocol ( monitor h/h ) - PRN SL NGT - High-intensity Statin - Lipid panel / A1c in am - Supplemental o2 - maintain o2 sat>90% - Aspirin 325 mg Po x 1 now - Metoprolol ER 12.5 mg po x1 now - ECHO ordered for am - Cardiology consulted - NPO for possible cardiac catheterization ESRD on HD (M/W/F) Hyperkalemia ( hx of transplant on chronic immunosuppression ) - Nephrology consult for HD - K 5.7 - Insulin 10 units - Kayexelate 15g g PO x1 - Calcium gluconate 1g IV x1 - Repeat labs in AM - Await further plan for HD - Verify immunosuppresive and resume Additional medical history - Hypertension - Hyperlipidemia - Diabetes mellitus - Chronic cough/hemoptysis - Hx of COVID-19 infection( 04/2020) - Chronic diastolic heart failure - Obstructive sleep apnea on CPAP QHS - Hx of Tobacco abuse quit in GI ppx - Protonix 40 mg PO daily DVT ppx - On heaprin gtt - No scds due to hx of PVD Attestations Medical Necessity Statement*: Patient will require over 2 midnight stay in hospital for eval and treatment of NSTEMI requiring iv heparin, cardiology eval and possible angiogram Time Spent in Patient Care: Greater than 35 minutes (>than 50% of time spent in counselling and/or direct pt care on unit). Coding Level of Care Code Acute Seamer [employer] for [facility] Fwd Diagnoses NSTEMI (non-ST elevated myocardial infarction) I21.4 Hyperkalemia E87.5 ESRD (end stage renal disease) on dialysis N18.6; Z99.2
[2020-09-07] VITALS (87 sets, daily range): BP systolic 104–176; BP diastolic 67–98; PULSE 76–114; RESP 14–34; TEMP 36.8–37.1; O2SAT 86–99
[2020-09-07] MEDS: HYDROcodone-acetaminophen 10-325 mg Tablet 1 TAB PO ×3 (00:34→17:44)
[2020-09-07] MEDS: sodium polystyrene sulfonate 15 gm/60 mL Btl PO (00:36)
[2020-09-07] MEDS: heparin 5,000 unit/mL INJ 1 mL IV (00:42)
[2020-09-07] MEDS: metoprolol succinate ER (24 HR) 25 mg Tablet 12.5 MG PO (00:44)
[2020-09-07] MEDS: heparin drip 25,000 UNIT/500 ML PREMIX 31.1 UNIT IV (00:44)
--- NOTE | 2020-09-07 00:54 | PC.NURSE ---
Aspirin EC not given after approval by Dr. Mota. Pt took 1300mg of aspirin at home before coming to ER.
--- NOTE | 2020-09-07 02:05 | USCV_ITS ---
Delonte Bahena Age: 65 Gender: M : 1955 Exam Date: 09/07/2020 06:15 Ordering Phys: Sanket Davis MD Technologist: Elvi Estrella Exam Location: [facility] [place] Indication: NSTEMI BP: 176 / 90 HR: Rhythm: Other Technical Quality: Poor because of body habitus MEASUREMENTS (Male / Female) Normal Values 2D ECHO LV Diastolic Diameter PLAX 6.4 cm 4.2 - 5.9 / 3.9 - 5.3 cm LV Systolic Diameter PLAX 4.4 cm LV Chamber Size 6.3 cm IVS Diastolic Thickness 1.7 cm 0.6 - 1.0 / 0.6 - 0.9 cm IVS Systolic Thickness 1.8 cm LVPW Diastolic Thickness 1.4 cm 0.6 - 1.0 / 0.6 - 0.9 cm LVPW Systolic Thickness 1.3 cm RV Chamber Size 3.2 cm LVOT Diameter 2.1 cm LV Ejection Fraction 2D Teich 56.7 % LA Diameter 5.4 cm LA Width 4.2 cm LA Height 6.2 cm RA Width 3.6 cm RA Height 5.5 cm Aorta at Sinotubular Diameter 3.1 cm M-MODE LV Diastolic Diameter MM 6.3 cm 4.2 - 5.9 / 3.9 - 5.3 cm LV Systolic Diameter MM 4.6 cm LV Ejection Fraction MM Teich 51.4 % IVS Diastolic Thickness MM 1.9 cm 0.6 - 1.0 / 0.6 - 0.9 cm IVS Systolic Thickness MM 1.9 cm LVPW Diastolic Thickness MM 1.4 cm 0.6 - 1.0 / 0.6 - 0.9 cm LVPW Systolic Thickness MM 1.7 cm RV Diastolic Diameter MM 2.5 cm Aortic Annulus Diameter 3.6 cm LA Ao Ratio MM 1.7 MV E Point Septal Separation 1.0 cm DOPPLER AV Peak Velocity 195.0 cm/s LVOT Peak Velocity 103.0 cm/s AV Area Cont Eq vti 2.0 cm squared AV Area Cont Eq pk 1.8 cm squared MV Area PHT 4.9 cm squared Mitral E to A Ratio 1.5 MV E' Velocity 56.5 cm/s Mitral E to MV E' Ratio 11.5 Mitral E to LV E' Lateral Ratio 8.6 Mitral E to LV E' Septal Ratio 17.8 TR Peak Velocity 169.0 cm/s TR Peak Gradient 11.4 mmHg TV Peak E Velocity 82.0 cm/s Right Atrial Pressure 3.0 mmHg Pulmonary Artery Systolic Pressu 14.4 mmHg PV Peak Velocity 78.0 cm/s RV Acceleration Time 0.1 s RV Ejection Time 0.3 s RV AcT/ET 0.3 FINDINGS Left Ventricle Left ventricle is dilated. LV systolic function is normal with EF of 50-55%. All carrera ae not well visualized but grossly no significant regional wall motion abnormalities. Grade 2 diastolic dysfunction Right Ventricle The right ventricle is normal in size and function. Right Atrium The right atrium is normal in size. Left Atrium The left atrium is enlarged Mitral Valve Mitral valve is thickened without significant stenosis or prolapse. There is trace mitral regurgitation. Aortic Valve Thickened aortic valve without significant sclerosis or stenosis. There is no aortic regurgitation. Tricuspid Valve Structurally normal tricuspid valve without significant stenosis. Trace tricuspid regurgitation. Insufficient TR jet to calculate RVSP Pulmonic Valve Structurally normal pulmonic valve without significant stenosis. There is mild pulmonic regurgitation. Pericardium Normal pericardium without effusion. Aorta Normal ascending aorta dimension. CONCLUSIONS Technically difficult study. LV systolic function is normal with EF of 50-55%. All carrera are not well visualized but grossly no significant regional wall motion abnormalities. Grade II diastolic dysfunction Dilated left ventricle and left atrium Trace mitral regurgitation, trace tricuspid regurgitation and mild pulmonic regurgitation Compared to prior echocardiogram from 09/02/2020, no significant changes are noted Meet Sweeney MD (Electronically Signed) Final Date: 08 September 2020 19:40 S
[2020-09-07 02:11] LABS: Glucose Point of Care 225 mg/dL (70-110)
[2020-09-07] MEDS: atorvastatin 40 mg Tablet 80 MG PO ×2 (02:45→09:18)
[2020-09-07] MEDS: HYDROcodone-acetaminophen 5-325 mg Tablet 1 TAB PO ×2 (03:42→04:58)
[2020-09-07 05:23] LABS: Basophils % 0.3 %; Eosinophils % 0.6 %; Hemoglobin 9.8 g/dL (11.7-16.6); Lymphocytes % 13.4 %; Mean Corpuscular HGB Conc 30.6 g/dL (30.0-36.0); Mean Corpuscular Hemoglobin 31.1 pg (28.0-34.0); Mean Corpuscular Volume 101.6 fL (80-94); Mean Platelet Volume 10.5 fL (7.4-10.4); Monocytes # 0.9 10^3/uL (0.2-0.9); Neutrophils # 5.22 10^3/uL (1.8-7.7); Neutrophils % 72.1 %; Nucleated Red Blood Cells % 0 %; Platelet Count 174 10^3/cmm (130-400); Red Blood Count 3.15 10^6/uL (4.1-5.3); Red Cell Distribution Width 16.5 % (12.1-15.1); White Blood Count 7.2 10^3/uL (4.0-10.0)
[2020-09-07 05:55] LABS: Alanine Aminotransferase 22 U/L (0-41); Albumin Level 4.3 g/dL (3.5-5.2); Alkaline Phosphatase 118 IU/L (40-130); Anion Gap 23.6 (5-19); Aspartate Amino Transferase 26 U/L (0-40); Blood Urea Nitrogen 58 mg/dL (8-23); Calcium 9.2 mg/dL (8.5-10.5); Carbon Dioxide 22 mmol/L (22-29); Chloride 101 mmol/L (98-107); Chol HDL Ratio 4.86 mg/dL (1.0-5.00); Cholesterol 175 mg/dL (0-200); Globulin 3.5 g/dL (1.3-4.6); Glomerular Filtration Rate 9.7 mL/min (90-130); Glucose 209 mg/dL (65-115); HDL Cholesterol 36 mg/dL (60-100); LDL Cholesterol Calculated 87 mg/dL (50-129); LDL HDL Ratio 2.42 RATIO (0.00-3.22); Magnesium 2.1 mg/dL (1.7-2.3); Osmolality Calculated 316 mOsm/kg (285-295); Phosphorus 5.7 mg/dL (2.5-4.5); Potassium 4.6 mmol/L (3.5-5.1); Sodium 142 mmol/L (136-145); Total Bilirubin 0.3 mg/dL (0.15-1.2); Total Protein 7.8 g/dL (6.6-8.7); Triglycerides 262 mg/dL (0-150)
[2020-09-07 06:02] LABS: Estmated Average Glucose 146; Hemoglobin A1C 6.7 % (4.0-6.0)
[2020-09-07 06:41] LABS: Troponin 5 6HR 466.4 ng/L (0-15)
[2020-09-07 06:46] LABS: Glucose Point of Care 243 mg/dL (70-110)
--- NOTE | 2020-09-07 08:20 | PC.NURSE ---
Doctor Zahra at bedside Informed pt on procedure left heart cath. informed on pt's allergy to contrast media. Received verbal order to give 50 mg IVP Benadryl, 125 mg of solu medrol IVP and 10 mg of Hydralaine for BP control. Heprainf drip is paused due to upcoming procedure. Pt signed the consent.
--- NOTE | 2020-09-07 09:00 | PC.NURSE ---
[facility] Left a voicemail on the telenephrologist to update on this pt. Hospitalist is aware and will wait for their call. Notified Dialysis nurse weatherization and housing inspector.
--- NOTE | 2020-09-07 09:05 | P.CONIM_ITS ---
Providers/Reason For Consult Consulting Physican/Specialty*: Meet Sweeney MD/ Cardiology Reason for Consult*: NSTEMI Requesting Physcian: Dr Green Attending Physician: Bill Green Primary Care Provider: JAIME Clement History of Present Illness History of Present Illness Delonte Bahena is a 65 year old male with PMH of coronary artery disease with CABG, esrd on HD, hypertension , cardiac arrest and diabetes presented to hospital with chest tightness and shortness of breath. According to patient he had been having on and off chest tightness (mentioned that did not feel much of pain) and SOB since tuesday night but got worse yesterday. He ate out and then walking to the car his symptoms got worse. EMS was called. Nitro improved symptoms significantly. EKG did not show acute ST changes. His NT proBNP was el evated. His last dialysis session was on tuesday. Initial troponin was 139 that trended up to 223 at 2 hours and 466 at 6 hours. Review of Systems General: Reports: 10 or more systems reviewed and unremarkable except in HPI and below Const: Denies: fever(s) or chills Card: Reports: edema and dyspnea on exertion; Denies: chest pain or palpitations Resp: Reports: dyspnea; Denies: productive cough or wheezing GI: Denies: abdominal pain, nausea, vomiting or diarrhea Musc: Denies: muscle weakness Skin/Breast: Denies: rash Neuro: Denies: difficulty walking Psych: Denies: visual hallucinations Sohail/Lymph: Denies: easy bruising All/Imm: Denies: acute wheezing Meds/Allergies Home Medications and Allergies Home Medications Medication Instructions Recorded Confirmed Last Taken Type cyclosporine 100 mg PO BID 08/07/19 09/07/20 09/03/19 History Layla-Humble Original 1 tab PO PRN 09/03/19 09/07/20 09/03/19 04:00 History aspirin 81 mg tablet,delayed 81 mg PO QAM 08/05/20 09/07/20 09/06/20 History release sevelamer carbonate 800 mg tablet See Rx Instructions .ROUTE .COMPLEX 08/05/20 09/07/20 Unknown History Plavix 75 mg PO QPM 09/07/20 09/07/20 Unknown History famotidine 20 mg PO QAM 09/07/20 09/07/20 09/06/20 History hydrocodone-acetaminophen 1 tab PO Q8H PRN 09/07/20 09/07/20 Unknown History insulin aspart U-100 [Novolog See Rx Instructions .ROUTE .COMPLEX 09/07/20 09/07/20 Unknown History Flexpen U-100 Insulin] insulin detemir U-100 [Levemir See Rx Instructions .ROUTE .COMPLEX 09/07/20 09/07/20 Unknown History FlexTouch U-100 Insuln] prednisone 5 mg PO QAM 09/07/20 09/07/20 09/06/20 History prednisone 30 mg PO QAM 09/07/20 09/07/20 09/06/20 History rosuvastatin 20 mg PO QPM 09/07/20 09/07/20 Unknown History torsemide 40 mg PO QAM 09/07/20 09/07/20 09/06/20 History Allergies Allergy/AdvReac Type Severity Reaction Status Date / Time Iodinated Contrast Media Allergy Intermediate ADR-Itching Verified 09/06/20 1 9:09 zolpidem [From Ambien] Allergy ADR-Halluci Verified 09/07/20 09:26 nating Current Medications Current Medications Generic Name Dose Route Start Last Admin Trade Name Freq PRN Reason Stop Dose Admin Hydrocodone Bitart/Acetaminophen 1 tab 09/07/20 04:37 09/07/20 07:39 Hydrocodone-Acetaminophen 10-325 Mg Tablet PO 1 tab Q4H PRN Administration MODERATE PAIN Aspirin 325 mg 09/06/20 23:55 09/07/20 00:54 Aspirin 325 Mg Ec Tablet PO Not Given DAILY HUMPHREY Atorvastatin Calcium 80 mg 09/07/20 00:00 09/07/20 02:45 Atorvastatin 40 Mg Tablet PO 80 mg DAILY HUMPHREY Administration Heparin Sodium (Beef Lung) 0 unit 09/06/20 23:31 09/07/20 00:42 Heparin 5,000 Unit/Ml Inj 1 Ml IV 5,500 unit PRN PRN Administration Heparin weight-base protocol Protocol Heparin Sodium/Sodium Chloride 25,000 unit in 500 mls @ 0 mls/hr 09/06/20 23:45 09/07/20 08:32 Heparin Drip IV 0 unit/kg/hr .Q0M HUMPHREY 0 mls/hr Titration Protocol Per Protocol PFSH Acute PFSH: Medical History Anemia 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 CAD (coronary artery disease) Diabetes mellitus, type II ESRD (end stage renal disease) HTN (hypertension) with goal to be determined Myocardial infarction Right inguinal hernia Surgical History H/O heart artery stent History of four vessel coronary artery bypass graft History of kidney transplant Hx laparoscopic cholecystectomy Hx of arteriovenostomy for renal dialysis Hx of cardiac cath Hx of kidney transplant Hx of lumbosacral spine surgery Family History Mother Dementia CAD (coronary artery disease) Aortic stenosis Father Chronic kidney disease (CKD) ESRD Cancer Prostate cancer Brother CAD (coronary artery disease) Diabetes Social History Smoking and tobacco status: former smoker Quit status (tobacco): has quit using tobacco Year quit tobacco: 2001 Former quit date comment: Hx of 2PPD x 20 Years Smoking risk assessment/counseling performed?: No Alcohol intake: never Counseling given: No Counseling given: No Lives independently: Yes Household members: spouse Marital status: Current occupational status: disabled History of recent travel: No Current gender identity: Male Vitals/I&O/Wt Last Vital Signs Temp 98.3 F 09/07/20 07:23 Pulse 83 09/07/20 07:23 Resp 14 09/07/20 07:23 BP 170/83 09/07/20 07:23 Pulse Ox 96 09/07/20 07:23 09/06/20 09/07/20 09/07/20 22:59 06:59 14:59 Intake Total 242.58 / 242.58 Output Total 350 / 350 Balance -350 / -350 242.58 / 242.58 Weight last 48 hrs Weight 253 lb 1.6 oz Weight 245 lb Physical Exam Narrative: EXAM NARRATIVE: GENERAL: Patient is alert, awake and oriented x3. [] NECK: No jugular vein distension. [] HEENT: No cyanosis. No icterus. No pallor. [] HEART: Regular S1 and S2. No murmur, rub or gallop. [] LUNGS: Diminished breath sounds, mild crackles ABDOMEN: Soft, nontender and nondistended. Positive bowel sounds. No guarding, rebound or tenderness. [] CENTRAL NERVOUS SYSTEM: Grossly nonfocal. [] EXTREMITIES: Lower extremities with 1+ edema bilaterally. Pulses palpable in the lower extremities, both dorsalis pedis and posterior tibial. A&P Assessment and plan (1) NSTEMI (non-ST elevated myocardial infarction): Status: Acute (2) ESRD (end stage renal disease) on dialysis: Status: Acute (3) Shortness of breath: Status: Acute (4) HTN (hypertension) with goal to be determined: Status: Acute (5) History of four vessel coronary artery bypass graft: Status: Acute (6) Diabetes mellitus, type II: Status: Acute Patient has NSTEMI with significant uptrending troponin. We will proceed with coronary angiogram with possible percutaneous coronary intervention. I had a detailed discussion with the patient regarding the procedure and described the risks and benefits of the procedure. Patient understands the risks and benefits and wants to proceed with the procedure. He will need hemodialysis post procedure. Consult nephrology Aspirin and reload with plavix Will pretreat for the iodine allergy Further plan based on the angiogram findings Order echo Thank you for involving us with care of this patient.We will continue to follow. Please call with questions Coding Level of Care Code Acute Peripheral Vascular Tech for Kaycee Dejesus Diagnoses NSTEMI (non-ST elevated myocardial infarction) I21.4 ESRD (end stage renal disease) on dialysis N18.6; Z99.2 Shortness of breath R06.02 HTN (hypertension) with goal to be determined I10 History of four vessel coronary artery bypass graft Z95.1 Diabetes mellitus, type II E11.9
--- NOTE | 2020-09-07 09:06 | XACV_ITS ---
Exam Room: [facility] Ht: 175 cm Wt: 115 kg BSA: 2.41 m2 Gender: Male : 1955 Any Known Allergies: Contrast Exam Priority: Routine Procedure(s): Procedure Description: Diagnostic procedure Procedure Description: Coronary Angiography Diagnostic Cath Status: Urgent Diagnostic Findings * CX has ostial 30% stenosis. There is a patent stent in the LCx. * LAD is ostially occluded. VU to LAD is patent. pLAD: Severe 100% stenosis, JULIO: 0 flow. * dRCA: Moderate 60% stenosis, JULIO: 3 flow. We decided to perform FFR of the lesion but patient went into pulmonary edema and we had to abort the procedure. * SVG grafts are known occluded. * We decided to perform FFR of the lesion but patient went into pulmonary edema and we had to abort the procedure. Patient was given IV lasix. Patient was emergently taken to ICU and was put on BIPAP and nitro gtt. Conclusions 1. Patient has prior CABG. 2. Patient has severe multivessel disease. 3. Distal RCA has moderate disease, LCx has mild disease. Ostial LAD is occluded. 4. VU to LAD is patent. SVG grafts are known occluded and were not engaged. Recommendations * Continue current medical management and risk factor modification. * Patient has moderate distal RCA stenosis. We planned on performing FFR of the RCA, however patient went into pulmonary edema requiring BIPAP/IV lasix and nitro gtt. * Transfer patient to ICU. * Will plan on outpatient stress test to assess ischemia in the RCA. Interventional RX Recommendation: medical therapy and/or counseling Diagnostic RX Recommendation: medical therapy and/or counseling Anticoagulation: Heparin Pressures Phase:Rest AO : 130 / 79 ( 103 ) @ 4:54:00 AM Clinical Evaluation EBL: 5mL-10mL Procedural Details Procedure Consent Obtained. Pre-Procedure Time Out. Identified patient by full name and date of as verbalized by the patient/guarantor. Does the consent match the physician's order: Yes. Accurate & Complete Informed Consent: Yes. Inpatient/Outpatient History & Physical on Chart: Yes. If H&P is completed, is and addenduem needed: No; If yes, is the addendum complete: N/A. Visualize and Verify Site with Patient/Guarantor: N/A. Relevant Radiology Images available: Yes. Pre-op teaching completed and patient verbalized understanding. The risks, benefits, and alternatives of sedation and/or procedure were discussed by physician. The patient agrees to continue. Procedure started. [facility] Clinical Fraility Score: 3: Managing Well. Internet Database Specialist Indications: Worsening Angina. Chest Pain Symptom Assessment: Typical Angina Symptoms. Cardiovascular Instability: No. Correct patient, site and procedure confirmed by cath team. Current diagnosis: Chest Pain. PERRLA. Strong, equal hand shuttlecock assembler bilaterally. Lungs clear x 5 lobes. IV Site on Arrival: 18 gauge in the left wrist. IV Fluids: 0.9% NaCl at KVO. 0 mL infused prior to poultry hatchery laborer. Pre Procedural Pulses: bilateral dorsalis pedis was 2+. Pre Procedural Pulses: bilateral posterior tibial was 2+. Pre Procedural Pulses: bilateral radial was 2+. Oxygen started at 2liters/min via nasal canula. bilateral groins was prepped with chloroprep then draped in the usual sterile fashion. Physician notified. Baseline sample Acquired. HR: 86 BPM. Equipment: 6F - Femoral. Cardiac Cath Pack. ACIST Manifold Kit Model BT 2000. Heparinized Saline (2 units/mL), 1000 mL bag. Kit, Micropuncture. Physician arrived. Physician scrubbed in. Immediate Pre-Procedure Time Out. Correct Patient: Yes; Correct Procedure: Yes; Correct Site: Yes; Correct Patient Position: Yes; Correct Supplies: Yes; Dried Flammable Prep: Yes; Blood Products Available: No;. Lidocaine 1% infiltrated to the right groin. Arterial access obtained with micropuncture set. A 6 scottish JL4 catheter in over wire. Multiple views taken of left coronary artery. Catheter out. A 6 scottish JR4 catheter in over wire. Multiple views taken of right coronary artery. Exchange wire inserted. Exchange wire out. Exchange wire inserted. A 5 scottish IM catheter in over wire. VU to LAD visualized. Catheter out. ACT drawn. Results 105 seconds. Therapeutic limits - pre-heparin administration 90-150 seconds and monitoring heparin during a vascular procedure >250 seconds. 6 scottish JR 4 guide catheter was inserted over the wire. Pressure wire inserted. Pressure wire out. Guide catheter out. Everything out. Patient complaining of shortness of breath and back pain, states he is unable to continue. A Suture was successful obtaining hemostatsis at the Right Femoral artery insertion site. Sheath(s) sutured into position with 2-0 silk and sterile 4x4's and Op-site applied over the site. No oozing or signs and symptoms of hematoma noted. Arterial sheath flushed and connected to tranducer and pressure bag with heparinized saline. Post Procedure: Pulses reassessed and unchanged. PERRLA. Strong, equal hand shuttlecock assembler bilaterally. No VTE prophylaxis required. Contrast type used: Omnipaque 300 mgI/mL, 500 mL bottle. Post-op diagnosis: CAD. Complications: Pulmonary Edema. Estimated blood loss: 5mL-10mL. Procedure completed. Patient transferred by bed to ICU. Vital chart was stopped. Access Site Site: Right Femoral artery Sheath Size: 6 Fr Hemostasis Method: Suture Hemostasis Success: Successful Procedure Medications Start: 9:35 AM Stop: 9:35 AM Medication: Versed Amount: 1 mg Route: I.V. Start: 9:35 AM Stop: 9:35 AM Medication: Fentanyl Amount: 50 mcg Start: 9:42 AM Stop: 9:42 AM Medication: Versed 1 mg and Fentanyl 25 mcg Amount: 1 Route: I.V. Start: 10:13 AM Stop: 10:13 AM Medication: Heparin Amount: 7000 units Route: I.V. Start: 10:19 AM Stop: 10: AM Medication: Versed Amount: 2 mg Route: I.V. Start: 10:20 AM Stop: 10:20 AM Medication: Fentanyl Amount: 25 mcg Route: I.V. Start: 10: AM Stop: : AM Medication: Lasix (furosemide) Amount: 80 mg Route: I.V. I, the attending physician, have reviewed and verified all procedure medications. Yes, all medications given per verbal order History/Risk Factors Hypertension: Yes Dyslipidemia: No Peripheral Arterial Disease (PAD): No Myocardial Infarction (NE): Yes Obesity: Yes Renal Disease: No Prior Interventions PCI: Yes CABG: Yes Valve Surgery: Yes Report Signatures Finalized by Meet Sweeney MD on 09/20/2020 09:36 PM
[2020-09-07] MEDS: clopidogrel 300 mg Tablet 600 MG PO (09:18)
[2020-09-07] MEDS: pantoprazole DR 40 mg Tablet PO (09:18)
[2020-09-07] MEDS: hyDRALAzine 20 mg/mL INJ 1 mL 10 MG IVP (09:20)
[2020-09-07] MEDS: diphenhydrAMINE 50 mg/mL SDV 1mL IVP (09:20)
--- NOTE | 2020-09-07 09:33 | PC.NURSE ---
to laboratory courier
--- NOTE | 2020-09-07 09:38 | W.PM.OPSUD ---
Surgery/Procedure H&P Update DATE OF PROCEDURE: September 07, 2020 DATE H&P PERFORMED: 09/07/20 H&P UPDATE INFORMATION: I have reviewed H&P completed within last 30 days, I have examined patient prior to procedure and No changes to prior documentation PREOP DIAGNOSIS: NSTEMI PRIMARY INDICATION FOR PROCEDURE: NSTEMI PLANNED PROCEDURE: Operation Date: 09/07/20 09:00 Proposed Procedures p Cardiac Catheterization(Left) - Meet Sweeney M.D Possible percutaneous coronary intervention PATIENT REASSESSED PRIOR TO SEDATION, WITH NO CHANGE NOTED: Yes PHYSICAL EXAM: alert, oriented x 3 and clear to auscultation bilaterally AIRWAY EVAL/ANESTHESIA PLAN: ASA III, Risks, benefits & alternatives of sedation and/or procedure discussed and Patient agrees to continue as planned
--- NOTE | 2020-09-07 09:39 | PC.PHAR ---
PTS TYESHA STATES SHE HELPS THE PT WITH HIS MEDICATIONS-PTS STATES THE PT TAKES LEVEMIR FLEXTOUCH 80 UNITS BID-EXT MED HISTORY SHOWS LAST FILLED ON 09/11/2019 82 UNITS BID-PTS STATES THE PT TAKES NOVOLOG FLEXPEN 18 UNITS QID PLUS SLIDING SCALE BEFORE OR AFTER MEALS-EXT MED HISTORY SHOWS LAST FILLED ON 09/02/20 18 UNITS TID WITH MEALS-PTS STATES THE PHARMACY FILLED IT WRONG THE LAST TIME-PTS STATES SOMETIMES THE PT WILL USE UP TO 96 UNITS A DAY DEPENDING ON HIS SUGAR-PTS STATES THE PT IS TAKING PREDNISONE 30MG AND 5MG PO QPM-PTS STATES THE PT IS SUPPOSE TO BE TAKING RENVELA 800MG ,800-1600MG PO WITH EACH MEAL (EXT MED HISTORY SHOWS LAST FILLED 02/28/20 90D/S) PTS STATES THE PT MAY TAKE ONCE A DAY-A RX WAS FILLED ON 08/12/20 14D/S FOR AMBIEN 10MG HS-PTS STATES THE PT WAS HALLUCINATING WITH THIS MEDICATION
[2020-09-07 09:40] LABS: Iron 60 ug/dL (59-158); Percent Saturation 22.4 % (20-50); Total Iron Binding Capacity 267 mcg/dl; Transferrin 221 mg/dL (200-360); Unsaturated Iron Binding 207 ug/dL (112-347)
[2020-09-07 09:59] LABS: Ferritin 1183 ng/mL (30-400)
[2020-09-07 10:17] LABS: Folate Level 3.6 ng/mL (4.5-32.2)
[2020-09-07 10:31] LABS: Vitamin B12 385 pg/mL (232-1245)
[2020-09-07] MEDS: LORazepam 2 mg/mL INJ 1 mL 1 MG IVP (10:49)
[2020-09-07] MEDS: FUROsemide 10 mg/mL SDV 4mL 40 MG IVP (10:49)
[2020-09-07] MEDS: nitroglycerin drip 50 MG/250 ML PREMIX 6 MG IV (10:50)
--- NOTE | 2020-09-07 10:56 | XRR_ITS ---
PROCEDURE INFORMATION: Exam: XR Chest Exam date and time: 09/07/2020 11:43 AM Age: 65 years old Clinical indication: Shortness of breath; Additional info: Pulm edema TECHNIQUE: Imaging protocol: XR of the chest Views: 1 view. COMPARISON: CR XR chest 1V portable [id number] 09/06/2020 7:40 PM FINDINGS: Lungs: There is prominent pulmonary consolidation especially in the lung bases and on the left side. This has significantly worsened since previous examination. Pleural spaces: Unremarkable. No pleural effusion. No pneumothorax. Heart/Mediastinum: The patient has undergone coronary bypass surgery. The cardiac silhouette is enlarged but unchanged. Bones/joints: Unremarkable. XR/XR chest 1V portable [id number] IMPRESSION: Prominent bilateral pulmonary consolidation especially in the left lung has significantly worsened since previous study.
[2020-09-07 11:02] LABS: ABG PCO2 51.6 mmHg (35-45); Alveolar-Arterial Oxygen Gradi 69.5 mmHg (5-10); Arterial Blood Gas Hematocrit 36.7 % (42-52); Blood Gas Allen Test Pos; Blood Gas Operator Identificat CAK; Blood Gas Sample Site Brachial, left; Blood Gas Sample Type Arterial; HCO3 ABG 17.9 mmol/L (22-26); HGB O2 Sat 94.7 % (95-100); Ionized Calcium Level - ABG 1.3 mmol/L (1.1-1.4); Methemoglobin 1.3 % (0.4-1.5); Oxygen Device BIPAP; Oxygen Saturation ABG 96.9
[2020-09-07 11:03] LABS: ABG PH Result 7.15 (7.35-7.45)
[2020-09-07 11:14] LABS: Glucose Point of Care 283 mg/dL (70-110)
--- NOTE | 2020-09-07 11:49 | PC.NURSE ---
called and updated on patient status, visiting hours. No further questions.
[2020-09-07] MEDS: sodium chloride 0.9% 1,000 ML 50 ML IV (12:37)
--- NOTE | 2020-09-07 12:59 | P.PN_ITS ---
Subjective Subjective: Interval history: Patient underwent cardiac catheterization this morning. Developed pulmonary edema during the procedure. Transferred to ICU. Currently on BiPAP. Stable. Responsive. Follows instructions. Denies any active complaints. Denies chest pain. Medications: Reviewed: Yes Medication Review Details: Generic Name Dose Route Start Last Admin Trade Name Freq PRN Reason Stop Dose Admin Hydrocodone Bitart /Acetaminophen 1 tab 09/07/20 04:37 09/07/20 07:39 Hydrocodone-Acet aminophen 10-325 M g Tablet PO 1 tab Q4H PRN Administration MODERATE PAIN Aspirin 325 mg 09/06/20 23:55 09/07/20 00:54 Aspirin 325 Mg E c Tablet PO Not Given DAILY HUMPHREY Atorvastatin Calci um 80 mg 09/07/20 00:00 09/07/20 09:18 Atorvastatin 40 Mg Tablet PO 80 mg DAILY HUMPHREY Administration Heparin Sodium (Be ef Lung) 0 unit 09/06/20 23:31 09/07/20 00:42 Heparin 5,000 Un it/Ml Inj 1 Ml IV 5,500 unit PRN PRN Administration Heparin weight-ba se protocol Protocol Heparin Sodium/Sod ium Chloride 25,000 unit in 50 0 mls @ 0 mls/hr 09/06/20 23:45 09/07/20 08:32 Heparin Drip IV 0 unit/kg/hr .Q0M HUMPHREY 0 mls/hr Titration Protocol Per Protocol Nitroglycerin/Dext vlad 50 mg in 250 mls @ 0 mls/hr 09/07/20 11:00 09/07/20 11:[address] ip IV 30 mcg/min .Q0M HUMPHREY 9 mls/hr Titration Protocol Per Protocol Insulin Aspart 0 unit 09/07/20 08:00 09/07/20 11:54 Insulin Aspart 1 00 Unit/1 Ml SUBCUT 10 unit WM&BEDTIME HUMPHREY Administration Protocol Pantoprazole Sodiu m 40 mg 09/07/20 09:00 09/07/20 09:[address] 40 Mg Tablet PO 40 mg DAILY HUMPHREY Administration Vitals/I&O/Wt Last Vital Signs Temp 98.3 F 09/07/20 07:23 Pulse 94 09/07/20 12:52 Resp 31 H 09/07/20 11:30 BP 143/83 09/07/20 11:30 Pulse Ox 93 09/07/20 12:52 09/06/20 09/07/20 09/07/20 22:59 06:59 14:59 Intake Total 248.905 / 248.905 Output Total 350 / 350 Balance -350 / -350 248.905 / 248.905 Weight last 48 hrs Weight 114.804 kg Weight 111.13 kg Physical Exam Narrative: EXAM NARRATIVE: Awake and alert. No acute distress. On BiPAP. Mild tachypnea. Skin is warm and dry. Moist mucous memories. Eyes PERRL, extraocular muscles are intact Neck supple. No JVD Lungs bibasilar crackles are present. No accessory muscle use. Heart S1, S2, regular Abdomen obese, soft, nontender, bowel sounds are present Extremities bilateral pitting edema symmetrically. No calf tenderness or cyanosis. Moves all extremities Urinary Catheter Management^: Najera: Cath Placed During This Visit: yes Urinary Catheter Date of Insertion: 09/07/20 Urinary Catheter Time of Insertion: 10:55 Data : 09/07/20 04:10 09/07/20 04:10 A&P Assessment and plan (1) NSTEMI (non-ST elevated myocardial infarction): Status: Acute (2) Hyperkalemia: Status: Acute (3) ESRD (end stage renal disease) on dialysis: Status: Acute Non-STEMI in hx of CAD s/p CABG(15yr/ago) multiple PCI/Stents - Troponin T-> 139 -> 223.6(120min) - follow up on 6hr - EKG - no evidence of ST elevation - Started on IV heparin gtt per ACS protocol ( monitor h/h ) - PRN SL NGT - High-intensity Statin - Lipid panel / A1c in am - Supplemental o2 - maintain o2 sat>90% - Aspirin 325 mg Po x 1 now - Metoprolol ER 12.5 mg po x1 now - ECHO ordered for am - Cardiology consulted - NPO for possible cardiac catheterization ESRD on HD (M/W/F) Hyperkalemia ( hx of transplant on chronic immunosuppression ) - Nephrology consult for HD - K 5.7 - Insulin 10 units - Kayexelate 15g g PO x1 - Calcium gluconate 1g IV x1 - Repeat labs in AM - Await further plan for HD - Verify immunosuppresive and resume Additional medical history - Hypertension - Hyperlipidemia - Diabetes mellitus - Chronic cough/hemoptysis - Hx of COVID-19 infection( 04/2020) - Chronic diastolic heart failure - Obstructive sleep apnea on CPAP QHS - Hx of Tobacco abuse quit in 02 GI ppx - Protonix 40 mg PO daily DVT ppx - On heaprin gtt - No scds due to hx of PVD [place] Non-ST elevation [place]. Underwent cardiac catheterization. No PCI. Medical management is recommended. Discussed with Dr. Sweeney. I appreciate his input. We will continue management per his recommendations. The patient received loading dose of clopidogrel. Currently on aspirin and heparin drip. On high intensity statin. Decision on timing of beta-aimee will be made by Dr. Sweeney. Acute hypoxic respiratory failure secondary to below. Pulmonary edema. (On top of pulmonary fibrosis and COPD baseline.) The patient was given Lasix. Good urine output at this moment. Continue respiratory support with BiPAP. Discussed with wood carver. Appreciate Dr. De Luna's input. Dialysis will be ordered. I am hoping that patient's respiratory status will improve after dialysis. COPD. No evidence of bronchospasm. End-stage renal disease. Continue dialysis treatments per nephrology. Per kalemia. Resolved. Continue management per nephrology. Dyslipidemia. Continue statin. Macrocytosis/anemia. The patient has folic acid deficiency. Starting replacement. Will monitor H&H. DVT prophylaxis. On heparin drip. Diabetes. Will order insulin sliding scale Hypertension currently well controlled. The plan of care was discussed with the patient. He verbalized understanding and agreement Discussed with nursing staff. Attestations Medical Necessity Statement*: Critical care time spent on this encounter is 35-minute Coding Level of Care Code Acute Style Advisor for [facility] Diagnoses NSTEMI (non-ST elevated myocardial infarction) I21.4 Hyperkalemia E87.5 ESRD (end stage renal disease) on dialysis N18.6; Z99.2
[2020-09-07 13:51] LABS: Partial Thromboplastin Time 51.2 SECONDS (23.9-36.7)
[2020-09-07 14:07] LABS: NT Pro B Type Natriuretic Pept 6488 pg/mL (0-125)
--- NOTE | 2020-09-07 15:16 | PC.NURSE ---
Sheath out 1445, held pressure 20 minutes, patient tolerated well, no bleeding, no hematoma formation felt. Patient educated on bedrest, keeping flat/supine, not bending at the waste for 6 hours. Verbal understanding. at bedside.
--- NOTE | 2020-09-07 15:37 | ECG_ITS ---
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 Measurements Intervals [place] Rate: 86 P: 41 VT: 152 QRS: 37 QRSD: 101 T: 47 QT: 373 QTc: 448 Interpretive Statements SINUS RHYTHM POSSIBLE LEFT ATRIAL ENLARGEMENT [-0.1mV P WAVE IN V1/V2] MINIMAL ST DEPRESSION [0.025+ mV ST DEPRESSION] Compared to ECG 09/06/2020 21:29:38 ST (T wave) deviation now present Electronically Signed On 09-07-2020 18:01:32 CDT by Meet Sweeney M.D. [email or web address]
--- NOTE | 2020-09-07 15:49 | PC.NURSE ---
EKG performed due to heart block on telemetry. Block was not noted on patient's arrival to ICU and tabular trend shows change at 1512. No change compared to prior EKG. No complaints of chest pain/discomfort. Will continue to monitor and assess patient.
--- NOTE | 2020-09-07 16:29 | P.CONIM_ITS ---
Providers/Reason For Consult Consulting Physican/Specialty*: [place]/Telenephrology Reason for Consult*: ESRD management and dialysis needs Attending Physician: Bill Green Primary Care Provider: JAIME Clement History of Present Illness History of Present Illness Delonte Bahena is a 65 year old male presented with chest pain and shortness of breath, got cardiac cath this morning and later admitted to icu as he was requiring bipap. Telenephrology consulted for ESRD management and dialysis needs. His last dialysis was on tuesday. Review of Systems General: Reports: 10 or more systems reviewed and unremarkable except in HPI and below Const: Denies: fever(s) or chills Card: Reports: edema and dyspnea on exertion; Denies: chest pain or palpitations Resp: Reports: dyspnea; Denies: productive cough or wheezing GI: Denies: abdominal pain, nausea, vomiting or diarrhea Musc: Denies: muscle weakness Skin/Breast: Denies: rash Neuro: Denies: difficulty walking Psych: Denies: visual hallucinations Sohail/Lymph: Denies: easy bruising All/Imm: Denies: acute wheezing Meds/Allergies Home Medications and Allergies Home Medications Medication Instructions Recorded Confirmed Last Taken Type cyclosporine 100 mg PO BID 08/07/19 09/07/20 09/03/19 History Layla-Paterson Original 1 tab PO PRN 09/03/19 09/07/20 09/03/19 04:00 History aspirin 81 mg tablet,delayed 81 mg PO QAM 08/05/20 09/07/20 09/06/20 History release sevelamer carbonate 800 mg tablet See Rx Instructions .ROUTE .COMPLEX 08/05/20 09/07/20 Unknown History Plavix 75 mg PO QPM 09/07/20 09/07/20 Unknown History famotidine 20 mg PO QAM 09/07/20 09/07/20 09/06/20 History hydrocodone-acetaminophen 1 tab PO Q8H PRN 09/07/20 09/07/20 Unknown History insulin aspart U-100 [Novolog See Rx Instructions .ROUTE .COMPLEX 09/07/20 09/07/20 Unknown History Flexpen U-100 Insulin] insulin detemir U-100 [Levemir See Rx Instructions .ROUTE .COMPLEX 09/07/20 09/07/20 Unknown History FlexTouch U-100 Insuln] prednisone 5 mg PO QAM 09/07/20 09/07/20 09/06/20 History prednisone 30 mg PO QAM 09/07/20 09/07/20 09/06/20 History rosuvastatin 20 mg PO QPM 09/07/20 09/07/20 Unknown History torsemide 40 mg PO QAM 09/07/20 09/07/20 09/06/20 History Allergies Allergy/AdvReac Type Severity Reaction Status Date / Time Iodinated Contrast Media Allergy Intermediate ADR-Itching Verified 09/06/20 19:09 zolpidem [From Ambien] Allergy ADR-Halluci Verified 09/07/20 09:26 nating Current Medications Current Medications Generic Name Dose Route Start Last Admin Trade Name Freq PRN Reason Stop Dose Admin Hydrocodone Bitart/Acetaminophen 1 tab 09/07/20 04:37 09/07/20 07:39 Hydrocodone-Acetaminophen 10-325 Mg Tablet PO 1 tab Q4H PRN Administration MODERATE PAIN Aspirin 325 mg 09/06/20 23:55 09/07/20 00:54 Aspirin 325 Mg Ec Tablet PO Not Given DAILY HUMPHREY Atorvastatin Calcium 80 mg 09/07/20 00:00 09/07/20 09:18 Atorvastatin 40 Mg Tablet PO 80 mg DAILY HUMPHREY Administration Heparin Sodium (Beef Lung) 0 unit 09/06/20 23:31 09/07/20 00:42 Heparin 5,000 Unit/Ml Inj 1 Ml IV 5,500 unit PRN PRN Administration Heparin weight-base protocol Protocol Heparin Sodium/Sodium Chloride 25,000 unit in 500 mls @ 0 mls/hr 09/06/20 23:45 09/07/20 08:32 Heparin Drip IV 0 unit/kg/hr .Q0M HUMPHREY 0 mls/hr Titration Protocol Per Protocol Nitroglycerin/Dextrose 50 mg in 250 mls @ 0 mls/hr 09/07/20 11:00 09/07/20 14:00 Nitroglycerin Drip IV 40 mcg/min .Q0M HUMPHREY 12 mls/hr Titration Protocol Per Protocol Insulin Aspart 0 unit 09/07/20 08:00 09/07/20 11:54 Insulin Aspart 100 Unit/1 Ml SUBCUT 10 unit WM&BEDTIME HUMPHREY Administration Protocol Pantoprazole Sodium 40 mg 09/07/20 09:00 09/07/20 09:[address] 40 Mg Tablet PO 40 mg DAILY HUMPHREY Administration PFSH Acute PFSH: Medical History (Updated 09/07/20 @ 16:40 by Baldo De Luna) Anemia 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 CAD (coronary artery disease) Diabetes mellitus, type II ESRD (end stage renal disease) HTN (hypertension) with goal to be determined Myocardial infarction Right inguinal hernia Surgical History H/O heart artery stent History of four vessel coronary artery bypass graft History of kidney transplant Hx laparoscopic cholecystectomy Hx of arteriovenostomy for renal dialysis Hx of cardiac cath Hx of kidney transplant Hx of lumbosacral spine surgery Family History Mother Dementia CAD (coronary artery disease) Aortic stenosis Father Chronic kidney disease (CKD) ESRD Cancer Prostate cancer Brother CAD (coronary artery disease) Diabetes Social History Smoking and tobacco status: former smoker Quit status (tobacco): has quit using tobacco Year quit tobacco: 2001 Former quit date comment: Hx of 2PPD x 20 Years Smoking risk assessment/counseling performed?: No Alcohol intake: never Counseling given: No Counseling given: No Lives independently: Yes Household members: spouse Marital status: Current occupational status: disabled History of recent travel: No Current gender identity: Male Vitals/I&O/Wt Last Vital Signs Temp 98.3 F 09/07/20 07:23 Pulse 86 09/07/20 16:15 Resp 22 H 09/07/20 16:15 BP 121/68 09/07/20 16:15 Pulse Ox 95 09/07/20 16:15 09/07/20 09/07/20 09/07/20 06:59 14:59 22:59 Intake Total 315.505 / 315.505 Output Total 350 / 350 1800 / 1800 Balance -350 / -350 -1484.495 / -1484.495 Weight last 48 hrs Weight 114.804 kg Weight 111.13 kg Physical Exam Const: COMMON NORMALS: patient oriented x3 and alert GENERAL APPEARANCE: cooperative ORIENTATION/CONSCIOUSNESS: Yes awake Resp: AUSCULTATION: crackles Cardio: COMMON NORMALS: S1 normal heart sound present and S2 normal heart sound present HEART SOUNDS: S1 normal heart sound present and S2 normal heart sound present GI: AUSCULTATION: Yes normoactive bowel sounds Extremity: GENERAL: Yes edema Neuro: COMMON NORMALS: patient oriented x3 SENSORIUM/ORIENTATION: Yes alert Skin: COMMON NORMALS: no rashes or lesions noted GENERAL SKIN EXAM: no rash es or lesions noted Urinary Catheter Management^: Najera: Cath Placed During This Visit: yes Urinary Catheter Date of Insertion: 09/07/20 Urinary Catheter Time of Insertion: 10:55 A&P Assessment and plan (1) ESRD (end stage renal disease) on dialysis: No acute indication for dialysis tonight. Will plan HD tommorrow for 4hrs Status: Acute (2) Shortness of breath: Responding well to lasix, had 2300ml urine output in last 6hrs Status: Acute (3) HTN (hypertension) with goal to be determined: Monitor BP closely Status: Acute (4) Anemia: Will consider erythropoietin if needed Status: Acute (5) Secondary hyperparathyroidism: continue sevelamer Status: Acute Consult Attestations Medical Necessity Statement: chest pain Coding Level of Care Code Acute Transfer Table Operator Helper for Chg Fwd Diagnoses ESRD (end stage renal disease) on dialysis N18.6; Z99.2 Shortness of breath R06.02 HTN (hypertension) with goal to be determined I10 Anemia D64.9 Secondary hyperparathyroidism N25.81
[2020-09-07 16:57] LABS: Glucose Point of Care 341 mg/dL (70-110)
--- NOTE | 2020-09-07 17:28 | PC.NURSE ---
Patient moved to ICU 9 to accommodate for dialysis in morning. Belongings with patient.
[2020-09-07] MEDS: FUROsemide 10 mg/mL SDV 10mL 80 MG IVP (17:32)
[2020-09-07] MEDS: folic acid 1 mg Tablet PO (17:33)
[2020-09-07 20:30] LABS: Glucose Point of Care 356 mg/dL (70-110)
--- NOTE | 2020-09-07 22:25 | P.EN_ITS ---
Event Note Event Note: Patient underwent cardiac catherization today that showed patent OM, RCA was patent but had a moderate stenosis in the mid vessel, LAD was ostially occluded. VU to LAD is patent. SVG grafts known occluded. We planned on performing FFR however patient complained of breathing difficulty and went i nto flash pulmonary edema. He was given IV lasix, moved to ICU, put on BiPAP. He was started on nitro gtt, leading to excellent diuresis and improvement in breathing status. Patient is stable now. Plan for hemodialysis tomorrow per nephrology. Urine output has been good. Patient's family updated and agreed with plan. Event Notes Attestations Time Spent in Patient Care: Greater than 35 minutes (>than 50% of time spent in counselling and/or direct pt care on unit) . Patient was transferred from cardiac laboratory geneticist to ICU. Supervised the critical care including putting on bipap, adminsitration of medications and counselling patient/ family
[2020-09-07] MEDS: temazepam 15 mg Capsule PO (23:04)
[2020-09-08] VITALS (74 sets, daily range): BP systolic 85–174; BP diastolic 56–100; PULSE 71–106; RESP 11–30; TEMP 36.4–36.8; O2SAT 82–98
[2020-09-08] MEDS: HYDROcodone-acetaminophen 10-325 mg Tablet 1 TAB PO ×6 (02:16→23:38)
[2020-09-08 05:21] LABS: Basophils % 0.1 %; Hematocrit 32.1 % (42.0-52.0); Hemoglobin 9.7 g/dL (11.7-16.6); Lymphocytes # 0.4 10^3/uL (0.8-4.8); Lymphocytes % 3.8 %; Mean Corpuscular HGB Conc 30.2 g/dL (30.0-36.0); Mean Corpuscular Hemoglobin 31.2 pg (28.0-34.0); Mean Corpuscular Volume 103.2 fL (80-94); Mean Platelet Volume 10.2 fL (7.4-10.4); Monocytes # 0.8 10^3/uL (0.2-0.9); Monocytes % 8.1 %; Neutrophils # 9.09 10^3/uL (1.8-7.7); Neutrophils % 87.3 %; Nucleated Red Blood Cells % 0 %; Platelet Count 187 10^3/cmm (130-400); Red Blood Count 3.11 10^6/uL (4.1-5.3); Red Cell Distribution Width 16.7 % (12.1-15.1); White Blood Count 10.4 10^3/uL (4.0-10.0)
[2020-09-08 05:42] LABS: Albumin Level 4.3 g/dL (3.5-5.2); Anion Gap 25.6 (5-19); Blood Urea Nitrogen 69 mg/dL (8-23); Calcium 9.7 mg/dL (8.5-10.5); Carbon Dioxide 22 mmol/L (22-29); Chloride 97 mmol/L (98-107); Glomerular Filtration Rate 8.1 mL/min (90-130); Glucose 298 mg/dL (65-115); Potassium 5.6 mmol/L (3.5-5.1); Sodium 139 mmol/L (136-145)
[2020-09-08 05:43] LABS: Phosphorus 7.6 mg/dL (2.5-4.5)
[2020-09-08 05:47] LABS: Magnesium 2.1 mg/dL (1.7-2.3)
[2020-09-08 08:21] LABS: Glucose Point of Care 334 mg/dL (70-110)
[2020-09-08] MEDS: aspirin 325 mg EC Tablet PO (08:50)
[2020-09-08] MEDS: atorvastatin 40 mg Tablet 80 MG PO (08:51)
[2020-09-08] MEDS: folic acid 1 mg Tablet PO ×2 (08:51→17:21)
[2020-09-08] MEDS: pantoprazole DR 40 mg Tablet PO (08:51)
--- NOTE | 2020-09-08 09:24 | ECG_ITS ---
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 Measurements Intervals [place] Rate: 99 P: 164 DC: 146 QRS: 164 QRSD: 100 T: 160 QT: 366 QTc: 471 Interpretive Statements SINUS RHYTHM ARM LEADS REVERSED [INVERTED P AND QRS IN I] ATYPICAL ECG Compared to ECG 09/07/2020 15:42:35 ST (T wave) deviation no longer present Electronically Signed On 09-08-2020 19:15:06 CDT by Meet Sweeney M.D. [id number]
[2020-09-08] MEDS: nitroglycerin 0.4 mg sublingual Tablet SUBLINGUAL (09:26)
--- NOTE | 2020-09-08 09:40 | ECG_ITS ---
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 Measurements Intervals [place] Rate: 87 P: 23 IN: 146 QRS: -1 QRSD: 109 T: 21 QT: 385 QTc: 464 Interpretive Statements SINUS RHYTHM POSSIBLE LEFT ATRIAL ENLARGEMENT [-0.1mV P WAVE IN V1/V2] MODERATE ST DEPRESSION [0.05+ mV ST DEPRESSION] Compared to ECG 09/08/2020 09:34:23 ST (T wave) deviation now present Electronically Signed On 09-08-2020 19:14:23 CDT by Meet Sweeney M.D. [id number]
--- NOTE | 2020-09-08 09:51 | PC.CHAP ---
Pastoral Care Encounter/Spiritual Assessment Type of Contact [] Declined r d engineer visit [] Patient/Family/Request visit [] Outpatient visit [] Follow-up visit [] Physician referral [] Code/Alert [x] Routine visit [] Staff referral [] Actively dying [] Patient sleeping [] Family support [] [] Out of room [] Palliative care [] [x] Receiving care in room [] Pre-surgical visit [] Trauma [] Long length of stay [x] ICU visit [] Other: Relational/Emotional Strength [] Patient feels connected with others/family/visitors/staff [] Distress [] Loneliness/isolation [] Abandonment Spirituality of Patient [] Person of Wanda [] Attends Episcopalian of their Wanda [] Believes in Prayer [] Reads Bible or Amish materials [] There are Spiritual issues to be addressed Supervisor [employer] Interventions [x] Prayer [] Active listening [] Non-anxious presence [] Spiritual/emotional support [] Crisis/trauma care [] Spiritual counseling [] Bereavement support [] Provided bereavement packet [] Provided Bible/devotional materials [] Provided toy/stuffed animal, coloring book to patient or family member [] Provided Communion [] Anointing/[place] [] Salvation [x] Completed spiritual assessment [] Other: Impact on Illness or Injury [] Angry [] Fearful [] Anxious [] Often cries [] Exhaustion [] Unable to work [] Unable to attend latter day [] Unable to walk/stand [] Unable to read [] Unable to drive [] Unable to eat/drink [] Unable to sleep [] Unable to be with family [] Patient intubated [] Other: Summary Time spent with patient
--- NOTE | 2020-09-08 09:53 | PC.NURSE ---
Patient started experiencing chest pain. 11/20 and getting worse. States that this pain feels the same as what he experienced when he fist came to the hospital. Nurse administered 1 NItro tab, and alerted Dr momin. Nurse received orders to do and EKG and notify Dr velasquez. Nurse completed ekg and notified ron. Patient states that the chest pain went away after the first nitro tab and has not returned.
--- NOTE | 2020-09-08 10:37 | PM.PN ---
Subjective Subjective: Interval history: Mr. Bahena is seen and examined on dialysis today. Dialysis is going well and he is tolerating the therapy nicely. He did have an episode of chest pain earlier today, there were no EKG changes that were noted to be new and he did respond to nitro paste. Multivessel disease noted on left heart cath per cardiology. Chest x-ray this morning demonstrates bilateral infiltrates consistent with edema. Vitals/I&O/Wt Last Vital Signs Temp 97.7 F 09/08/20 09:00 Pulse 89 09/08/20 10:00 Resp 17 09/08/20 10:00 BP 152/81 09/08/20 10:00 Pulse Ox 94 09/08/20 10:00 09/07/20 09/08/20 09/08/20 22:59 06:59 14:59 Intake Total 574.95 / 890.455 220.75 / 1111.205 240 / 240 Output Total 1550 / 3350 600 / 3950 Balance -975.05 / -2459.545 -379.25 / -2838.795 240 / 240 Weight last 48 hrs Weight 119.431 kg Weight 114.804 kg Weight 111.13 kg Physical Exam Narrative: EXAM NARRATIVE: Constitutional: Awake, comfortable HEENT: Wet mucosa, no jvp, non icteric Lungs: Bilaterally basal rales CVS: S1 S2, no murmurs Abdo: Soft, BS ok Ext 4: Minimal edema, peripheral perfusion with no cyanosis Neurological: Grossly non-focal Urinary Catheter Management^: Najera: Cath Placed During This Visit: yes Reason for Continuing Indwelling Catheter: Accurate Measurement of Urinary Output in Critically Ill Patients Urinary Catheter Date of Insertion: 09/07/20 Urinary Catheter Time of Insertion: 10:55 Data : 09/08/20 04:43 09/08/20 04:43 A&P Additional A&P Information 1. End-stage kidney disease Seen on dialysis today. Will evaluate him tomorrow morning with repeat chest x-ray to see if he needs additional ultrafiltration. Otherwise we will plan on doing dialysis also on Tuesday. Dose medication for GFR less than 15 on dialysis. 2. CAD He underwent cardiac catherization that showed patent OM, RCA was patent but had a moderate stenosis in the mid vessel, LAD was ostially occluded. VU to LAD is patent. SVG grafts known occluded. Management per cardiology. 3. Hypertension Blood pressure came down to 125/80 last night. Blood pressure a little elevated this morning, however, undergoing dialysis with ultrafiltration. We will continue to monitor hemodynamics during hospital stay. 4. Bone metabolism Continue Renvela during hospitalization, titration as outpatient. 5. Anemia of ESRD Hemoglobin slightly below goal, will get iron and EPO as outpatient, no need to dose inpatient, but I will continue to monitor hemoglobin levels during hospitalization. Emre Schultz MD Nephrology [phone] Patient seen and examined via telemedicine, with the assistance of the bedside RN > 25 min spent in evaluation and mgmt of patient Attestations Medical Necessity Statement*: esrd mgmt Coding Level of Care Code Acute Vinyl Installer for Kaycee Dejesus
[2020-09-08 11:58] LABS: Glucose Point of Care 234 mg/dL (70-110)
--- NOTE | 2020-09-08 13:08 | PC.NURSE ---
Patient is currently receiving dialysis. Blood pressure is trending in the low 90's. Dialysis nurse requested that Nurse holds lunch until dialysis is complete. Pt is agreeable to this. Nurse also held insulin since he is not eating, will give insulin when lunch is given. Nurse delayed giving Sevelamer, will give the phosphate binder when lunch is given.
[2020-09-08] MEDS: sevelamer 800 mg Tablet 1600 MG PO ×2 (13:34→17:22)
--- NOTE | 2020-09-08 14:01 | PM.PN ---
Subjective Subjective: Interval history: The patient is doing much better today. Off BiPAP. Her shortness of breath improved after diuresis. Denies any chest pain today. No cough. No chills. No nausea or vomiting. Medications: Reviewed: Yes Medication Review Details: Generic Name Dose Route Start Last Admin Trade Name Freq PRN Reason Stop Dose Admin Hydrocodone Bitart /Acetaminophen 1 tab 09/07/20 04:37 09/08/20 10:32 Hydrocodone-Acet aminophen 10-325 M g Tablet PO 1 tab Q4H PRN Administration MODERATE PAIN Aspirin 325 mg 09/06/20 23:55 09/08/20 08:50 Aspirin 325 Mg E c Tablet PO 325 mg DAILY HUMPHREY Administration Atorvastatin Calci um 80 mg 09/07/20 00:00 09/08/20 08:51 Atorvastatin 40 Mg Tablet PO 80 mg DAILY HUMPHREY Administration Folic Acid 1 mg 09/07/20 18:00 09/08/20 08:51 Folic Acid 1 Mg Tablet PO 1 mg BID HUMPHREY Administration Heparin Sodium (Be ef Lung) 0 unit 09/06/20 23:31 09/07/20 00:42 Heparin 5,000 Un it/Ml Inj 1 Ml IV 5,500 unit PRN PRN Administration Heparin weight-ba se protocol Protocol Heparin Sodium/Sod ium Chloride 25,000 unit in 50 0 mls @ 0 mls/hr 09/06/20 23:45 09/07/20 08:32 Heparin Drip IV 0 unit/kg/hr .Q0M HUMPHREY 0 mls/hr Titration Protocol Per Protocol Nitroglycerin/Dext vlad 50 mg in 250 mls @ 0 mls/hr 09/07/20 11:00 09/08/20 01:[address] ip IV 0 mcg/min .Q0M HUMPHREY 0 mls/hr Titration Protocol Per Protocol Insulin Aspart 0 unit 09/07/20 08:00 09/08/20 13:38 Insulin Aspart 1 00 Unit/1 Ml SUBCUT 8 unit WM&BEDTIME HUMPHREY Administration Protocol Nitroglycerin 0.4 mg 09/07/20 11:25 09/08/20 09:26 Nitroglycerin 0. 4 Mg Sublingual Ta blet SUBLINGUAL 0.4 unit Q5M PRN Administration CHEST PAIN Pantoprazole Sodiu m 40 mg 09/07/20 09:00 09/08/20 08:[address] 40 Mg Tablet PO 40 mg DAILY HUMPHREY Administration Sevelamer Carbonat e 1,600 mg 09/08/20 12:00 09/08/20 13:34 Sevelamer 800 Mg Tablet PO 1,600 mg TIDWM HUMPHREY Administration Temazepam 15 mg 09/07/20 11:25 09/07/20 23:04 Temazepam 15 Mg Capsule PO 15 mg BEDTIME PRN Administration INSOMNIA Vitals/I&O/Wt Last Vital Signs Temp 97.7 F 09/08/20 09:00 Pulse 89 09/08/20 10:00 Resp 17 09/08/20 10:00 BP 152/81 09/08/20 10:00 Pulse Ox 94 09/08/20 10:00 09/07/20 09/08/20 09/08/20 22:59 06:59 14:59 Intake Total 574.95 / 890.455 220.75 / 1111.205 240 / 240 Output Total 1550 / 3350 600 / 3950 Balance -975.05 / -2459.545 -379.25 / -2838.795 240 / 240 Weight last 48 hrs Weight 119.431 kg Weight 114.804 kg Weight 111.13 kg Physical Exam Narrative: EXAM NARRATIVE: Awake and alert. No acute distress. On BiPAP. Mild tachypnea. Skin is warm and dry. Moist mucous memories. Eyes PERRL, extraocular muscles are intact Neck supple. No JVD Lungs bibasilar crackles are present. No accessory muscle use. Heart S1, S2, regular Abdomen obese, soft, nontender, bowel sounds are present Extremities bilateral pitting edema symmetrically. No calf tenderness or cyanosis. Moves all extremities Urinary Catheter Management^: Najera: Cath Placed During This Visit: yes Reason for Continuing Indwelling Catheter: Accurate Measurement of Urinary Output in Critically Ill Patients Urinary Catheter Date of Insertion: 09/07/20 Urinary Catheter Time of Insertion: 10:55 Data : 09/08/20 04:43 09/08/20 04:43 A&P Assessment and plan (1) NSTEMI (non-ST elevated myocardial infarction): Status: Acute (2) Hyperkalemia: Status: Acute (3) ESRD (end stage renal disease) on dialysis: Status: Acute Non-STEMI in hx of CAD s/p CABG(15yr/ago) multiple PCI/Stents - Troponin T-> 139 -> 223.6(120min) - follow up on 6hr - EKG - no evidence of ST elevation - Started on IV heparin gtt per ACS protocol ( monitor h/h ) - PRN SL NGT - High-intensity Statin - Lipid panel / A1c in am - Supplemental o2 - maintain o2 sat>90% - Aspirin 325 mg Po x 1 now - Metoprolol ER 12.5 mg po x1 now - ECHO ordered for am - Cardiology consulted - NPO for possible cardiac catheterization ESRD on HD (M/W/F) Hyperkalemia ( hx of transplant on chronic immunosuppression ) - Nephrology consult for HD - K 5.7 - Insulin 10 units - Kayexelate 15g g PO x1 - Calcium gluconate 1g IV x1 - Repeat labs in AM - Await further plan for HD - Verify immunosuppresive and resume Additional medical history - Hypertension - Hyperlipidemia - Diabetes mellitus - Chronic cough/hemoptysis - Hx of COVID-19 infection( 04/2020) - Chronic diastolic heart failure - Obstructive sleep apnea on CPAP QHS - Hx of Tobacco abuse quit in GI ppx - Protonix 40 mg PO daily DVT ppx - On heaprin gtt - No scds due to hx of PVD [place] Non-ST elevation [place]. Underwent cardiac catheterization. No PCI. Medical management is recommended. Discussed with Dr. Sweeney. I appreciate his input. We will continue management per his recommendations. Start beta-aimee today. The patient received loading dose of clopidogrel. We will resume his home clopidogrel today. Currently on aspirin and heparin drip. On high intensity statin. Acute hypoxic respiratory failure secondary to below. Resolved. Off BiPAP Pulmonary edema. (On top of pulmonary fibrosis and COPD baseline.) Resolved with diuresis. COPD. No evidence of bronchospasm. End-stage renal disease. History of kidney transplant. Continue dialysis treatments per nephrology. Continue home immunosuppressive therapy. Hyperkalemia. Continue management per nephrology. Dyslipidemia. Continue statin. Macrocytosis/anemia. The patient has folic acid deficiency. Replacing. Will monitor H&H. DVT prophylaxis. On heparin drip. Diabetes. Will order insulin sliding scale Hypertension currently well controlled. The plan of care was discussed with the patient. He verbalized understanding and agreement Discussed with nursing staff. Attestations Medical Necessity Statement*: Probably discharge soon. 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
[2020-09-08 17:01] LABS: Glucose Point of Care 349 mg/dL (70-110)
[2020-09-08] MEDS: clopidogrel 75 mg Tablet PO (17:21)
[2020-09-08] MEDS: carvedilol 3.125 mg Tablet PO (17:21)
--- NOTE | 2020-09-08 18:27 | PM.PN ---
Subjective Subjective: Interval history: Patient is doing well. Denies any complaints of chest pain, shortness of breath or palpitations. Off BiPAP now. Diuresed well yesterday. Hemodialysis to be done today Vitals/I&O/Wt Last Vital Signs Temp 98.1 F 09/08/20 16:00 Pulse 89 09/08/20 16:00 Resp 17 09/08/20 16:00 BP 103/60 09/08/20 16:00 Pulse Ox 95 09/08/20 16:00 09/08/20 09/08/20 09/08/20 06:59 14:59 22:59 Intake Total 220.75 / 1111.205 240 / 240 Output Total 600 / 3950 Balance -379.25 / -2838.795 240 / 240 Weight last 48 hrs Weight 263 lb 4.8 oz Weight 253 lb 1.6 oz Weight 245 lb Physical Exam Narrative: EXAM NARRATIVE: GENERAL: Patient is alert, awake and oriented x3. [] NECK: No jugular vein distension. [] HEENT: No cyanosis. No icterus. No pallor. [] HEART: Regular S1 and S2. No murmur, rub or gallop. [] LUNGS: Diminished breath sounds, mild crackles ABDOMEN: Soft, nontender and nondistended. Positive bowel sounds. No guarding, rebound or tenderness. [] CENTRAL NERVOUS SYSTEM: Grossly nonfocal. [] EXTREMITIES: Lower extremities with 1+ edema bilaterally. Pulses palpable in the lower extremities, both dorsalis pedis and posterior tibial. Urinary Catheter Management^: Najera: Cath Placed During This Visit: yes Reason for Continuing Indwelling Catheter: Accurate Measurement of Urinary Output in Critically Ill Patients Urinary Catheter Date of Insertion: 09/07/20 Urinary Catheter Time of Insertion: 10:55 Data : 09/09/20 04:59 09/09/20 04:59 A&P Assessment and plan (1) NSTEMI (non-ST elevated myocardial infarction): Status: Acute (2) ESRD (end stage renal disease) on dialysis: Status: Acute (3) Shortness of breath: Status: Acute (4) HTN (hypertension) with goal to be determined: Status: Acute (5) History of four vessel coronary artery bypass graft: Status: Acute (6) Diabetes mellitus, type II: Status: Acute He underwent coronary angiogram yesterday. He had moderate disease of RCA. VU to LAD was patent. Patent RCA/ LCx stents. He went into pulmonary edema Post angiogram. Had to be put on BiPAP and given IV Lasix. Plan for hemodialysis today. He has done well. Off BiPAP today. Patient's showed recent stress test from OSH that showed ischemia in all coronary territories. An abdominal ultrasound there had showed abdominal aneurysm measuring 5.3cm. (these tests were performed as workup for possible renal transplant) Hemodialysis planned for today. Continue aspirin Further plan based on the angiogram findings Echo shows preserved LV systolic function with EF of 55% Thank you for involving us with care of this patient.We will continue to follow. Please call with questions Attestations Medical Necessity Statement*: Care expected to cross 2 midnights. Coding Level of Care Code Acute Director Digital Analytics for [facility] Fwd Diagnoses NSTEMI (non-ST elevated myocardial infarction) I21.4 ESRD (end stage renal disease) on dialysis N18.6; Z99.2 Shortness of breath R06.02 HTN (hypertension) with goal to be determined I10 History of four vessel coronary artery bypass graft Z95.1 Diabetes mellitus, type II E11.9
--- NOTE | 2020-09-08 19:34 | PC.NURSE ---
Patient's blood sugar has been running high all day. 250-350. NUrse alerted Dr momin. received orders to start lantus. THis is a home medication for the patient. See mar. Nurse also say that patient had cyclosporine, turosemide, and prednisone as home meds. THey have also been restarted.
[2020-09-08] MEDS: insulin glargine 100 units/1 mL 50 UNIT SUBCUT (20:39)
[2020-09-08 20:57] LABS: Glucose Point of Care 378 mg/dL (70-110)
[2020-09-09] VITALS (55 sets, daily range): BP systolic 90–151; BP diastolic 52–86; PULSE 73–96; RESP 8–30; TEMP 36.4–36.6; O2SAT 83–99; BMI 36.7
[2020-09-09] MEDS: HYDROmorphone 1 mg/mL INJ 1 mL 0.4 MG IVP ×2 (00:59→06:02)
[2020-09-09] MEDS: HYDROcodone-acetaminophen 10-325 mg Tablet 1 TAB PO ×3 (03:58→17:01)
[2020-09-09 05:36] LABS: Basophils % 0.3 %; Eosinophils # 0.1 10^3/uL (0.0-0.8); Eosinophils % 0.5 %; Hematocrit 34.6 % (42.0-52.0); Hemoglobin 10.5 g/dL (11.7-16.6); Lymphocytes # 1.3 10^3/uL (0.8-4.8); Lymphocytes % 11.8 %; Mean Corpuscular HGB Conc 30.3 g/dL (30.0-36.0); Mean Corpuscular Hemoglobin 31.6 pg (28.0-34.0); Mean Corpuscular Volume 104.2 fL (80-94); Mean Platelet Volume 9.6 fL (7.4-10.4); Monocytes # 1.5 10^3/uL (0.2-0.9); Monocytes % 13.5 %; Neutrophils # 8.12 10^3/uL (1.8-7.7); Neutrophils % 72.9 %; Nucleated Red Blood Cells % 0 %; Platelet Count 209 10^3/cmm (130-400); Red Blood Count 3.32 10^6/uL (4.1-5.3); White Blood Count 11.2 10^3/uL (4.0-10.0)
[2020-09-09 05:49] LABS: Albumin Level 4.3 g/dL (3.5-5.2); Anion Gap 20.6 (5-19); Blood Urea Nitrogen 48 mg/dL (8-23); Calcium 9.9 mg/dL (8.5-10.5); Carbon Dioxide 29 mmol/L (22-29); Chloride 92 mmol/L (98-107); Glucose 251 mg/dL (65-115); Phosphorus 5.7 mg/dL (2.5-4.5); Potassium 4.6 mmol/L (3.5-5.1); Sodium 137 mmol/L (136-145)
[2020-09-09 06:00] LABS: Magnesium 1.9 mg/dL (1.7-2.3)
[2020-09-09 07:40] LABS: Glucose Point of Care 272 mg/dL (70-110)
--- NOTE | 2020-09-09 08:00 | XRR_ITS ---
PROCEDURE INFORMATION: Exam: XR Chest Exam date and time: 09/09/2020 8:15 AM Age: 65 years old Clinical indication: Condition or disease; Lung condition and disease; Pulmonary edema; Status not specified; Prior surgery; Surgery type: Open heart; Additional info: Pulnonary edema TECHNIQUE: Imaging protocol: XR of the chest Views: 1 view. COMPARISON: CR (CHEST, ) 09/07/2020 12:02 PM FINDINGS: Lungs: Improving bilateral airspace opacities, consistent with resolving edema. Trace left pleural effusion. No pneumothorax. Pleural spaces: See Lungs finding. Heart/Mediastinum: Stable cardiomediastinal silhouette. Bones/joints: Median sternotomy changes seen. Degenerative changes of the spine seen. XR/XR chest 1V portable [id number] IMPRESSION: Improving pulmonary edema.
[2020-09-09] MEDS: sevelamer 800 mg Tablet 1600 MG PO ×3 (08:24→18:00)
[2020-09-09] MEDS: TORSEmide 20 mg Tablet 40 MG PO (08:25)
[2020-09-09] MEDS: aspirin 325 mg EC Tablet PO (08:25)
[2020-09-09] MEDS: carvedilol 3.125 mg Tablet PO ×2 (08:25→18:00)
[2020-09-09] MEDS: predniSONE 20 mg Tablet 30 MG PO (08:26)
[2020-09-09] MEDS: pantoprazole DR 40 mg Tablet PO (08:28)
[2020-09-09] MEDS: folic acid 1 mg Tablet PO ×2 (08:28→18:00)
[2020-09-09] MEDS: cyanocobalamin 1,000 mcg/mL SDV 1000 MCG IM (08:33)
[2020-09-09] MEDS: insulin glargine 100 units/1 mL 60 UNIT SUBCUT ×2 (09:05→18:00)
[2020-09-09 11:11] LABS: Glucose Point of Care 433 mg/dL (70-110)
--- NOTE | 2020-09-09 12:01 | PC.SOCIAL ---
*IMM UPDATE* Litigation Associate gave patient IMM update. Provided him copy of page 2 of IMM. 09/09/20 @ 0920 Initialed, dated, timed and placed in chart.
--- NOTE | 2020-09-09 12:07 | P.PN_ITS ---
Subjective Subjective: Interval history: Stable denies any chest pain or shortness of breath overall doing fine from a cardiac perspective. Medications: Reviewed: Yes Medication Review Details: Generic Name Dose Route Start Last Admin Trade Name Nuhng PRN Reason Stop Dose Admin Hydrocodone Bitart /Acetaminophen 1 tab 09/07/20 04:37 09/08/20 10:32 Hydrocodone-Acet aminophen 10-325 M g Tablet PO 1 tab Q4H PRN Administration MODERATE PAIN Aspirin 325 mg 09/06/20 23:55 09/08/20 08:50 Aspirin 325 Mg E c Tablet PO 325 mg DAILY HUMPHREY Administration Atorvastatin Calci um 80 mg 09/07/20 00:00 09/08/20 08:51 Atorvastatin 40 Mg Tablet PO 80 mg DAILY HUMPHREY Administration Folic Acid 1 mg 09/07/20 18:00 09/08/20 08:51 Folic Acid 1 Mg Tablet PO 1 mg BID HUMPHREY Administration Heparin Sodium (Be ef Lung) 0 unit 09/06/20 23:31 09/07/20 00:42 Heparin 5,000 Un it/Ml Inj 1 Ml IV 5,500 unit PRN PRN Administration Heparin weight-ba se protocol Protocol Heparin Sodium/Sod ium Chloride 25,000 unit in 50 0 mls @ 0 mls/hr 09/06/20 23:45 09/07/20 08:32 Heparin Drip IV 0 unit/kg/hr .Q0M HUMPHREY 0 mls/hr Titration Protocol Per Protocol Nitroglycerin/Dext vlad 50 mg in 250 mls @ 0 mls/hr 09/07/20 11:00 09/08/20 01:[address] ip IV 0 mcg/min .Q0M HUMPHREY 0 mls/hr Titration Protocol Per Protocol Insulin Aspart 0 unit 09/07/20 08:00 09/08/20 13:38 Insulin Aspart 1 00 Unit/1 Ml SUBCUT 8 unit WM&BEDTIME HUMPHREY Administration Protocol Nitroglycerin 0.4 mg 09/07/20 11:25 09/08/20 09:26 Nitroglycerin 0. 4 Mg Sublingual Ta blet SUBLINGUAL 0.4 unit Q5M PRN Administration CHEST PAIN Pantoprazole Sodiu m 40 mg 09/07/20 09:00 09/08/20 08:[address] 40 Mg Tablet PO 40 mg DAILY HUMPHREY Administration Sevelamer Carbonat e 1,600 mg 09/08/20 12:00 09/08/20 13:34 Sevelamer 800 Mg Tablet PO 1,600 mg TIDWM HUMPHREY Administration Temazepam 15 mg 09/07/20 11:25 09/07/20 23:04 Temazepam 15 Mg Capsule PO 15 mg BEDTIME PRN Administration INSOMNIA Vitals/I&O/Wt Last Vital Signs Temp 97.5 F L 09/09/20 08:45 Pulse 88 09/09/20 08:45 Resp 16 09/09/20 08:45 BP 144/71 09/09/20 08:45 Pulse Ox 94 09/09/20 08:45 09/08/20 09/09/20 09/09/20 22:59 06:59 14:59 Intake Total 360 / 600 360 / 360 Output Total 200 / 200 150 / 350 Balance 160 / 400 -150 / 250 360 / 360 Weight last 48 hrs Weight 263 lb 4.8 oz Weight 263 lb 4.8 oz Physical Exam Narrative: EXAM NARRATIVE: GENERAL: Patient is alert, awake and oriented x3. NECK: No jugular vein distension. HEENT: No cyanosis. No icterus. No pallor. HEART: Regular S1 and S2. No murmur, rub or gallop. LUNGS: Clear to auscultate bilaterally. ABDOMEN: Soft, nontender and nondistended. Positive bowel sounds. No guarding, rebound or tenderness. CENTRAL NERVOUS SYSTEM: Grossly nonfocal. EXTREMITIES: Lower extremities with trace edema bilaterally. Urinary Catheter Management^: Najera: Cath Placed During This Visit: yes Reason for Continuing Indwelling Catheter: Accurate Measurement of Urinary Output in Critically Ill Patients Urinary Catheter Date of Insertion: 09/07/20 Urinary Catheter Time of Insertion: 10:55 Data : 09/09/20 04:59 09/09/20 04:59 A&P Assessment and plan (1) NSTEMI (non-ST elevated myocardial infarction): Status: Acute (2) ESRD (end stage renal disease) on dialysis: Status: Acute (3) Shortness of breath: Status: Acute (4) HTN (hypertension) with goal to be determined: Status: Acute (5) History of four vessel coronary artery bypass graft: Status: Acute (6) Diabetes mellitus, type II: Status: Acute He underwent coronary angiogram yesterday. He had moderate disease of RCA. VU to LAD was patent. Patent RCA/ LCx stents. He went into pulmonary edema Post angiogram. Had to be put on BiPAP and given IV Lasix. Plan for hemodialysis today. He has done well. Off BiPAP today. Patient's showed recent stress test from OSH that showed ischemia in all coronary territories. An abdominal ultrasound there had showed abdominal aneurysm measuring 5.3cm. (these tests were performed as workup for possible renal transplant) Hemodialysis planned for today. Continue aspirin Further plan based on the angiogram findings Echo shows preserved LV systolic function with EF of 55% Thank you for involving us with care of this patient.We will continue to follow. Please call with questions Post dialysis patient did fine from the volume overload status perspective. He denies any more chest pain. His shortness of breath is improved. Angiogram was not suggestive of significant stenosis thought to be culprit. Today he is ready to go home denies any chest pain. Appeared to be stable from cardiovascular perspective. I will add isosorbide mononitrate to the regimen. He will continue Plavix and aspirin. We will see him back in our clinic in 7 days. Attestations Medical Necessity Statement*: Patient can be discharged from cardiovascular perspective Coding Level of Care Code Established Pt Acute [facility] Patient Type Established History Detailed Exam Detailed Medical Decision Making Moderate Complexity Diagnoses NSTEMI (non-ST elevated myocardial infarction) I21.4 ESRD (end stage renal disease) on dialysis N18.6; Z99.2 Shortness of breath R06.02 HTN (hypertension) with goal to be determined I10 History of four vessel coronary artery bypass graft Z95.1 Diabetes mellitus, type II E11.9
--- NOTE | 2020-09-09 12:12 | PC.CHAP ---
Pastoral Care Encounter/Spiritual Assessment Type of Contact [] Declined heating element winder visit [] Patient/Family/Request visit [] Outpatient visit [] Follow-up visit [] Physician referral [] Code/Alert [x] Routine visit [] Staff referral [] Actively dying [x] Patient sleeping [] Family support [] [] Out of room [] Palliative care [] [] Receiving care in room [] Pre-surgical visit [] Trauma [] Long length of stay [x] ICU visit [x] Other: patient setting up in chair sleeping Relational/Emotional Strength [] Patient feels connected with others/family/visitors/staff [] Distress [] Loneliness/isolation [] Abandonment Spirituality of Patient [] Person of [place] [] Attends Taoism of their Wanda [] Believes in Prayer [] Reads Bible or Taoist materials [] There are Spiritual issues to be addressed Regional Wildlife Agent Interventions [] Prayer [] Active listening [] Non-anxious presence [] Spiritual/emotional support [] Crisis/trauma care [] Spiritual counseling [] Bereavement support [] Provided bereavement packet [] Provided Bible/devotional materials [] Provided toy/stuffed animal, coloring book to patient or family member [] Provided Communion [] Anointing/Mobile [] Salvation [] Completed spiritual assessment [] Other: Impact on Illness or Injury [] Angry [] Fearful [] Anxious [] Often cries [] Exhaustion [] Unable to work [] Unable to attend temple [] Unable to walk/stand [] Unable to read [] Unable to drive [] Unable to eat/drink [] Unable to sleep [] Unable to be with family [] Patient intubated [] Other: Summary Time spent with patient Pastoral Care Encounter/Spiritual Assessment Type of Contact [] Declined heating element winder visit [] Patient/Family/Request visit [] Outpatient visit [] Follow-up visit [] Physician referral [] Code/Alert [] Routine visit [] Staff referral [] Actively dying [] Patient sleeping [] Family support [] [] Out of room [] Palliative care [] [] Receiving care in room [] Pre-surgical visit [] Trauma [] Long length of stay [] ICU visit [] Other: Relational/Emotional Strength [] Patient feels connected with others/family/visitors/staff [] Distress [] Loneliness/isolation [] Abandonment Spirituality of Patient [] Person of Wanda [] Attends Taoism of their Wanda [] Believes in Prayer [] Reads Bible or Taoist materials [] There are Spiritual issues to be addressed Regional Wildlife Agent Interventions [x] Prayer [] Active listening [] Non-anxious presence [] Spiritual/emotional support [] Crisis/trauma care [] Spiritual counseling [] Bereavement support [] Provided bereavement packet [] Provided Bible/devotional materials [] Provided toy/stuffed animal, coloring book to patient or family member [] Provided Communion [] Anointing/Mobile [] Salvation [x] Completed spiritual assessment [] Other: Impact on Illness or Injury [] Angry [] Fearful [] Anxious [] Often cries [] Exhaustion [] Unable to work [] Unable to attend temple [] Unable to walk/stand [] Unable to read [] Unable to drive [] Unable to eat/drink [] Unable to sleep [] Unable to be with family [] Patient intubated [] Other: Summary Time spent with patient
--- NOTE | 2020-09-09 12:37 | PM.DCS ---
Discharge Providers Date of Admission: 09/06/20 23:31 Date of Discharge: September 09, 2020 Attending Provider at Admission: Sanket Davis Attending Provider at Discharge: Bill Green Primary Care Provider: JAIME Clement Diagnoses at Discharge Discharge Diagnosis (1) NSTEMI (non-ST elevated myocardial infarction): Status: Acute (2) ESRD (end stage renal disease) on dialysis: Status: Acute (3) Shortness of breath: Status: Acute (4) HTN (hypertension) with goal to be determined: Status: Acute (5) History of four vessel coronary artery bypass graft: Status: Acute (6) Diabetes mellitus, type II: Status: Acute Reason for Visit Reason for Visit: CHEST PAIN Hospital Course Hospital Course Diagnosis and problem list. Non-ST elevation IA. Underwent cardiac catheterization. He had moderate disease of RCA. VU to LAD was patent. Patent RCA/ LCx stents. No PCI. Medical management is recommended. Discharge medications are adjusted by Dr. Singleton. Patient is cleared for discharge. Currently he is doing well. Denies any active complaints. Denies any chest pain, shortness of breath, palpitations, dizziness, lightheadedness, diaphoresis. He is instructed to come back to emergency room if he develops any of the symptoms. Acute hypoxic respiratory failure secondary to below. Resolved. Pulmonary edema. (On top of pulmonary fibrosis and COPD baseline.) Resolved with diuresis. COPD. No evidence of bronchospasm. End-stage renal disease. History of kidney transplant. Continue dialysis treatments per nephrology. Continue home immunosuppressive therapy. Hyperkalemia. Resolved. Continue management per nephrology. Dyslipidemia. Continue statin. Outpatient dose adjustment by primary care team. Macrocytosis/anemia. The patient has folic acid deficiency. Replacing. Outpatient monitoring. DVT prophylaxis. Received heparin here. Diabetes. Continue home medications Hypertension currently well controlled. The plan of care was discussed with the patient. He verbalized understanding and agreement Physical Exam Narrative: EXAM NARRATIVE: Awake and alert. No acute distress. On BiPAP. Mild tachypnea. Skin is warm and dry. Moist mucous memories. Eyes PERRL, extraocular muscles are intact Neck supple. No JVD Lungs bibasilar crackles are present. No accessory muscle use. Heart S1, S2, regular Abdomen obese, soft, nontender, bowel sounds are present Extremities bilateral pitting edema symmetrically. No calf tenderness or cyanosis. Moves all extremities Urinary Catheter Management^: Najera: Cath Placed During This Visit: yes Reason for Continuing Indwelling Catheter: Accurate Measurement of Urinary Output in Critically Ill Patients Urinary Catheter Date of Insertion: 09/07/20 Urinary Catheter Time of Insertion: 10:55 Discharge Data Data Completed and Pending: Completed Studies During Hospitalization Category Date Time Status XR chest 1V humera ble [id number] Routine Exams 09/09/20 08:00 Completed XR chest 1V humera ble [id number] Stat Exams 09/06/20 19:22 Completed XR chest 1V humera ble [id number] Stat Exams 09/07/20 10:56 Completed CV echo complete* [id number] Urgent Ultrasound 09/07/20 02:05 Completed Pending at discharge Category Date Time Status OUT [employer] WORKER request for service Routin e Exams 09/07/20 09:06 Taken Complete Blood Co unt w/Auto AM LABS Lab 09/10/20 04:00 Ordered Magnesium AM LABS Lab 09/10/20 04:00 Ordered Platelet Count Q2 D Lab 09/10/20 04:00 Ordered Renal Function Pa georgette AM LABS Lab 09/10/20 04:00 Ordered Labs from last 24 hours 09/09/20 09/09/20 09/09/20 11:08 07:37 04:59 WBC RBC Hgb Hct MCV MCH MCHC RDW Plt Count MPV Neut % (Auto) Lymph % (Auto) [place] % (Auto) Eos % (Auto) Baso % (Auto) Neut # (Auto) Lymph # (Auto) [place] # (Auto) Eos # (Auto) Baso # (Auto) Nucleated RBC % (a uto) Nucleated RBCs # Sodium 137 Potassium 4.6 Chloride 92 L Carbon Dioxide 29 Anion Gap 20.6 H BUN 48 H Creatinine 5.3 H GFR Calculation 11.0 L Glucose 251 H POC Glucose 433 H 272 H Calcium 9.9 Phosphorus 5.7 H Magnesium Albumin 4.3 09/09/20 09/09/20 09/08/20 04:59 04:59 20:53 WBC 11.2 H RBC 3.32 L Hgb 10.5 L Hct 34.6 L MCV 104.2 H MCH 31.6 MCHC 30.3 RDW 17.0 H Plt Count 209 MPV 9.6 Neut % (Auto) 72.9 Lymph % (Auto) 11.8 [place] % (Auto) 13.5 Eos % (Auto) 0.5 Baso % (Auto) 0.3 Neut # (Auto) 8.12 H Lymph # (Auto) 1.3 [place] # (Auto) 1.5 H Eos # (Auto) 0.1 Baso # (Auto) 0.0 Nucleated RBC % (a uto) 0 Nucleated RBCs # 0.0 Sodium Potassium Chloride Carbon Dioxide Anion Gap BUN Creatinine GFR Calculation Glucose POC Glucose 378 H Calcium Phosphorus Magnesium 1.9 Albumin 09/08/20 16:58 WBC RBC Hgb Hct MCV MCH MCHC RDW Plt Count MPV Neut % (Auto) Lymph % (Auto) [place] % (Auto) Eos % (Auto) Baso % (Auto) Neut # (Auto) Lymph # (Auto) [place] # (Auto) Eos # (Auto) Baso # (Auto) Nucleated RBC % (a uto) Nucleated RBCs # Sodium Potassium Chloride Carbon Dioxide Anion Gap BUN Creatinine GFR Calculation Glucose POC Glucose 349 H Calcium Phosphorus Magnesium Albumin Vitals: Last Vital Signs Temp 97.5 F L 09/09/20 08:45 Pulse 88 09/09/20 08:45 Resp 16 09/09/20 08:45 BP 144/71 09/09/20 08:45 Pulse Ox 94 09/09/20 08:45 Discharge Plan Discharge Patient Disposition: Home Condition: Stable Prescriptions: New folic acid 1 mg Tablet 1 mg PO BID Qty: 60 RF: 0 carvedilol 3.125 mg Tablet 3.125 mg PO BID Qty: 60 RF: 0 isosorbide mononitrate 10 mg tablet 10 mg PO BID 30 Days Qty: 60 RF: 4 Continued sevelamer carbonate [Renvela] 800 mg tablet See Rx Instructions .ROUTE .COMPLEX RF: 0 aspirin [Adult Low Dose Aspirin] 81 mg tablet,delayed release (DR/EC) 81 mg PO QAM RF: 0 cyclosporine 100 mg Capsule 100 mg PO BID RF: 0 torsemide 20 mg tablet 40 mg PO QAM RF: 0 prednisone 20 mg tablet 30 mg PO QAM RF: 0 prednisone 5 mg tablet 5 mg PO QAM RF: 0 hydrocodone-acetaminophen 10-325 mg tablet 1 tab PO Q8H PRN (Reason: Pain) RF: 0 famotidine 20 mg Tablet 20 mg PO QAM RF: 0 Novolog Flexpen U-100 Insulin 100 unit/mL (3 mL) insulin pen See Rx Instructions .ROUTE .COMPLEX RF: 0 rosuvastatin 20 mg Tablet 20 mg PO QPM RF: 0 Levemir FlexTouch U-100 Insuln 100 unit/mL (3 mL) insulin pen See Rx Instructions .ROUTE .COMPLEX RF: 0 Plavix 75 mg tablet 75 mg PO QPM RF: 0 Discontinued Huan Original 325-1,916-1,000 mg Tablet, Effervescent 1 tab PO PRN RF: 0 Discharge Orders: Discharge Order (Routine); Ordered 09/09/20 Ordered By: Bill Green Referrals: Page Conway FNP [Primary Care Provider] - Veronica Singleton MD [Physician] - 6 Weeks Discharge Diet: Cardiac Discharge Activity: Increase activity as tolerated Patient Instructions: Left Heart Catheterization (DC) Activity Restrictions/Additional Instructions: Follow-up with Lisa Samaniego in 7 days. Follow-up with Dr. Singleton in 6 to 8 weeks. If you have chest pain not relieved with 3 nitroglycerin at 5 minutes apart please go to to ER by calling [phone]. Please also inform Dr. Singleton's office. Discharge Attestations Time Spent in Discharge Care*: greater than 30 min Quality Metrics Clinical Quality Measures During this hospital stay, did patient experience: AMI Clinical Trial Participant: No Contraindication to aspirin (AMI): Aspirin given Contraindication to statin: Statin prescribed Coding Level of Care Code Acute [employer] DC note Diagnoses NSTEMI (non-ST elevated myocardial infarction) I21.4 ESRD (end stage renal disease) on dialysis N18.6; Z99.2 Shortness of breath R06.02 HTN (hypertension) with goal to be determined I10 History of four vessel coronary artery bypass graft Z95.1 Diabetes mellitus, type II E11.9
--- NOTE | 2020-09-09 13:40 | PM.PN ---
Subjective Subjective: Interval history: Mr. Bahena is doing well, He is mobilizing well on the head today, denies any chest pain, shortness of breath. Dialysis went well yesterday. Hemodynamics look robust and stable today. He is keen to go home. Vitals/I&O/Wt Last Vital Signs Temp 97.5 F L 09/09/20 08:45 Pulse 88 09/09/20 08:45 Resp 16 09/09/20 08:45 BP 144/71 09/09/20 08:45 Pulse Ox 94 09/09/20 08:45 09/08/20 09/09/20 09/09/20 22:59 06:59 14:59 Intake Total 360 / 600 360 / 360 Output Total 200 / 200 150 / 350 Balance 160 / 400 -150 / 250 360 / 360 Weight last 48 hrs Weight 119.431 kg Weight 119.431 kg Physical Exam Narrative: EXAM NARRATIVE: Constitutional: Awake, comfortable HEENT: Wet mucosa, no jvp, non icteric Lungs: Bilaterally basal rales CVS: S1 S2, no murmurs Abdo: Soft, BS ok Ext 4: Minimal edema, peripheral perfusion with no cyanosis Neurological: Grossly non-focal Urinary Catheter Management^: Najera: Cath Placed During This Visit: yes Reason for Continuing Indwelling Catheter: Accurate Measurement of Urinary Output in Critically Ill Patients Urinary Catheter Date of Insertion: 09/07/20 Urinary Catheter Time of Insertion: 10:55 Data : 09/09/20 04:59 09/09/20 04:59 A&P Additional A&P Information 1. End-stage kidney disease Pending discharge for today, if he happens to be here tomorrow will dialyze him; no acute indication for dialysis today Dose medication for GFR less than 15 on dialysis. 2. CAD He underwent cardiac catherization that showed patent OM, RCA was patent but had a moderate stenosis in the mid vessel, LAD was ostially occluded. VU to LAD is patent. SVG grafts known occluded. Management per cardiology; medical mgmt planned 3. Hypertension Blood pressure looks good today . 4. Bone metabolism Continue Renvela during hospitalization, titration as outpatient. 5. OK for DC from my perspective Emre Schultz MD Nephrology [phone] Patient seen and examined via telemedicine, with the assistance of the bedside RN > 25 min spent in evaluation and mgmt of patient Attestations Medical Necessity Statement*: eval for ESRD mgmt Coding Level of Care Code Acute [employer] for [facility] Dejesus
--- NOTE | 2020-09-09 14:32 | PC.NURSE ---
AMbulated patient around ICU. Patient maintains a saturation of 94% on 2L NC, but drops to 85% on room air. Dr momin notified. Was instructed to order home O2 Eval and alert Case management for Home O2 set up
[2020-09-09 17:29] LABS: Glucose Point of Care 359 mg/dL (70-110)
[2020-09-09] MEDS: clopidogrel 75 mg Tablet PO (18:00)
--- NOTE | 2020-09-09 18:47 | PC.NURSE ---
DIscharged patient. Nurse removed both IVs to the left arm and the gage catheter. Home oxygen was provided to the patient. REviewed discharge instructions and new medications. Pt taken out to provate veicle via wheelchair. Patient's picked up the patient.
== END 2020-09-09 18:48 | disposition home or self-care (01) | DRG 280 ==
LOC: ER 09-07 00:41 → CSU 09-07 01:36 → ICU 09-07 10:46
PROVIDERS: Internal Medicine; Admitting Provider Hospitalist; Emergency Provider Family Medicine; PCP Nurse Practitioner Family; Visit Provider Internal Medicine
PROC: B2111ZZ Fluoroscopy of Multiple Coronary Arteries using Low Osmolar Contrast (ICD-10-PCS; principal; 2020-09-07 09:00)
DX: I21.4 Non-ST elevation (NSTEMI) myocardial infarction (principal); N18.6 End stage renal disease; J81.0 Acute pulmonary edema; J96.01 Acute respiratory failure with hypoxia; I25.810 Atherosclerosis of coronary artery bypass graft(s) without angina pectoris; I13.2 Hypertensive heart and chronic kidney disease with heart failure and with stage 5 chronic kidney disease, or end stage renal disease; I50.32 Chronic diastolic (congestive) heart failure; Z94.0 Kidney transplant status; T86.12 Kidney transplant failure; N25.81 Secondary hyperparathyroidism of renal origin; Z95.1 Presence of aortocoronary bypass graft; Z95.5 Presence of coronary angioplasty implant and graft; E11.22 Type 2 diabetes mellitus with diabetic chronic kidney disease; Z99.2 Dependence on renal dialysis; E78.5 Hyperlipidemia, unspecified; G47.33 Obstructive sleep apnea (adult) (pediatric); Z86.16 Personal history of COVID-19; Z87.891 Personal history of nicotine dependence; Z86.74 Personal history of sudden cardiac arrest; D53.9 Nutritional anemia, unspecified; K40.90 Unilateral inguinal hernia, without obstruction or gangrene, not specified as recurrent; E87.5 Hyperkalemia; J44.9 Chronic obstructive pulmonary disease, unspecified; J84.10 Pulmonary fibrosis, unspecified; Z79.02 Long term (current) use of antithrombotics/antiplatelets; Z79.4 Long term (current) use of insulin; Z79.891 Long term (current) use of opiate analgesic; Z79.52 Long term (current) use of systemic steroids; Z79.82 Long term (current) use of aspirin; I71.4 Abdominal aortic aneurysm, without rupture; D52.9 Folate deficiency anemia, unspecified
CPT/HCPCS: 36415; 36416; 36600; 51702; 71045; 80051; 80053; 80061; 80069; 82009; 82330; 82607; 82728; 82746; 82805; 82962; 83036; 83540; 83550; 83690; 83735; 83880; 84100; 84466; 84484; 85025; 85049; 85347; 85610; 85730; 90935; 93005; 93306; 93455; 93571; 94660; 94664; 96372; 99285; C1769; C1887; C1894; J0153; J0360; J0610; J1170; J1200; J1644; J1815 ×2; J1940; J2060; J2250; J2930; J3010; J3420; J3490; J7030; J7502; J7512; Q3014; Q9967

== ENCOUNTER 2020-10-08 04:14 | Inpatient (IN) | payer MEDICARE, OTHER, SELFPAY ==
[2020-10-08] VITALS (13 sets, daily range): BP systolic 113–187; BP diastolic 67–99; PULSE 79–98; RESP 17–24; TEMP 36.4–36.9; O2SAT 90–100; BMI 35.4
--- NOTE | 2020-10-08 04:24 | XR_ITS ---
WS: [id number] Exam: XR chest 1V portable [id number] Date/Time of Exam: 10/08/2020 4:27 AM Reason For Exam: ams Comparison 09/09/2020. There is consolidating pneumonia in the lingula in the left lower lobe. There are chronic interstitia l changes throughout both lungs. The heart is top limits normal size. The mediastinum is unremarkable in appearance for AP technique. Regional bony structures are intact. No pleural effusions. XR/XR chest 1V portable [id number] IMPRESSION: 1. Consolidating pneumonia in the lingula in the left lower lobe. 2. Superimposed chronic interstitial changes.
--- NOTE | 2020-10-08 04:25 | ECG_ITS ---
[facility] Test Date: 2020-10-08 Pat Name: Delonte Bahena Department: Room: 276 Gender: Male Psych Np: : 1955 Requested By: Eben Felix Order Number: [id number] Kofi MD: Meet Sweeney M.D. Measurements Intervals [place] Rate: 95 P: 34 MA: 147 QRS: -22 QRSD: 94 T: 34 QT: 356 QTc: 448 Interpretive Statements SINUS RHYTHM POSSIBLE LEFT ATRIAL ENLARGEMENT [-0.1mV P WAVE IN V1/V2] BORDERLINE LEFT AXIS DEVIATION [QRS AXIS < -20] Compared to ECG 09/08/2020 09:45:12 ST (T wave) deviation no longer present Electronically Signed On 10-08-2020 18:27:51 CDT by Meet Sweeney M.D. [email or web address]
--- NOTE | 2020-10-08 04:26 | ED_ITS ---
HPI - Altered Mental Status General: Chief Complaint: Altered Mental Status Stated Complaint: confusion/ams Time Seen by Provider: 10/08/20 04:16 Source: patient and family Mode of arrival: ambulatory Limitations: no limitations History of Present Illness: HPI narrative: 65-year-old male has a history of end-stage renal disease and diabetes. states that she woke up at 1 AM and found him very confused. Head ripped some carpet up had all his medicines out and dumped he also had multiple guns out. He does not really remember doing all this and she states that he could not remember the year or where he was. She states he did take an Ambien last night sometimes but it caused him to be quite altered throughout the night and had not taken one in quite some time. He has had hallucinations from this as well. He states that he had also said he been hearing people in the house. Patient here is improved per her but he still is quite confused. He is able to tell me his name but he was not real sure where he was and did not know the year. Denies any recent injuries. Denies any headaches. He has dialysis Tuesday and did receive his dialysis on Tuesday. 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 CAD (coronary artery disease) Diabetes mellitus, type II ESRD (end stage renal disease) ESRD (end stage renal disease) on dialysis HTN (hypertension) with goal to be determined Myocardial infarction NSTEMI (non-ST elevated myocardial infarction) Right inguinal hernia Secondary hyperparathyroidism Surgical History H/O heart artery stent History of four vessel coronary artery bypass graft History of kidney transplant Hx laparoscopic cholecystectomy Hx of arteriovenostomy for renal dialysis Hx of cardiac cath Hx of kidney transplant Hx of lumbosacral spine surgery Family History Mother Dementia CAD (coronary artery disease) Aortic stenosis Father Chronic kidney disease (CKD) ESRD Cancer Prostate cancer Brother CAD (coronary artery disease) Diabetes Social History Smoking and tobacco status: former smoker Quit status (tobacco): has quit using tobacco Year quit tobacco: 2001 Former quit date comment: Hx of 2PPD x 20 Years Smoking risk assessment/counseling performed?: No Alcohol intake: never Counseling given: No Counseling given: No Lives independently: Yes Household members: spouse Marital status: Current occupational status: disabled History of recent travel: No Current gender identity: Male Physical Exam Const: COMMON NORMALS: no acute distress and healthy appearing; negative for patient oriented x3 ORIENTATION/CONSCIOUSNESS: Yes oriented to person and Yes confused; not oriented to place and not oriented to time HENMT: COMMON NORMALS: normocephalic and atraumatic HEAD & SCALP: normocephalic and atraumatic Eye: COMMON NORMALS: Equal, round and reactive pupils present and EOMs intact bilaterally PUPIL: Yes Equal, round and reactive pupils present Neck/C-Spine: COMMON NORMALS: full ROM and supple Chest: COMMONS NORMALS: normal inspection of the chest and normal palpation of entire chest wall Resp: COMMON NORMALS: normal respiratory effort, No retractions, No use of accessory muscles and clear to auscultation bilaterally AUSCULTATION: clear to auscultation bilaterally Cardio: COMMON NORMALS: regular rate, regular rhythm and No murmurs present (Cardio) RATE: regular rate RHYTHM: regular rhythm GI: COMMON NORMALS: Normal to inspection, nondistended, normoactive bowel sounds present, Soft to palpation, non-tender and no masses PALPATION: Yes Soft to palpation Extremity: COMMON NORMALS: normal to inspection and full ROM Neuro: COMMON NORMALS: moves all extremities and no focal motor deficits; negative for patient oriented x3 SENSORIUM/ORIENTATION: Yes oriented to person, No oriented to place and No oriented to time Psych: COMMON NORMALS: mental status grossly normal, Normal thought process present and cooperative THOUGHT PROCESS: Normal thought process present Skin: COMMON NORMALS: no rashes or lesions noted and no wounds GENERAL SKIN EXAM: no rashes or lesions noted Course Vital Signs: Vital signs: Vital Signs Temperature 98.5 F 10/08/20 04:21 Pulse Rate 98 10/08/20 04:38 Respiratory Rate 24 H 10/08/20 04:38 Blood Pressure 176/99 10/08/20 04:38 Pulse Oximetry 95 10/08/20 04:38 MDM - Altered Mental Status MDM Narrative: Medical decision making narrative: Patient presents with altered mental status and hallucinations. I believe some part of this is likely due to him taking the Ambien he does also have a left lower lobe pneumonia on his chest x-ray. Patient is due for dialysis today as well. His potassium level here is normal. CT head here is normal as well. I spoke to the hospitalist and will admit. Lab Data: Labs: Lab Results 10/08/20 10/08/20 10/08/20 Range/Units 04:30 04:35 04:35 WBC 9.2 (4.0-10.0) 10^3/ uL RBC 3.08 L (4.1-5.3) 10^6/u L Hgb 9.6 L (11.7-16.6) g/dL Hct 32.2 L (42.0-52.0) % MCV 104.5 H (80-94) fL MCH 31.2 (28.0-34.0) pg MCHC 29.8 L (30.0-36.0) g/dL RDW 17.2 H (12.1-15.1) % Plt Count 200 (130-400) 10^3/c mm MPV 9.5 (7.4-10.4) fL Neut % (Auto) 69.8 % Lymph % (Auto) 13.8 % [place] % (Auto) 13.6 % Eos % (Auto) 2.0 % Baso % (Auto) 0.4 % Neut # (Auto) 6.39 (1.8-7.7) 10^3/u L Lymph # (Auto) 1.3 (0.8-4.8) 10^3/u L [place] # (Auto) 1.3 H (0.2-0.9) 10^3/u L Eos # (Auto) 0.2 (0.0-0.8) 10^3/u L Baso # (Auto) 0.0 (0.0-0.1) 10^3/u L Nucleated RBC % (a uto) 0 % Nucleated RBCs # 0.0 /100WBC PT 13.80 (12.1-14.9) SECO NDS INR 1.00 (0.8-1.2) Sodium (136-145) mmol/L Potassium (3.5-5.1) mmol/L Chloride (98-107) mmol/L Carbon Dioxide (22-29) mmol/L Anion Gap (5-19) BUN (8-23) mg/dL Creatinine (0.7-1.2) mg/dL GFR Calculation (90-130) mL/min Glucose (65-115) mg/dL Calculated Osmolal ity (285-295) mOsm/k g Calcium (8.5-10.5) mg/dL Total Bilirubin (0.15-1.2) mg/dL AST (0-40) U/L ALT (0-41) U/L Alkaline Phosphata se (40-130) IU/L NT-Pro-B Natriuret Pep (0-125) pg/mL Total Protein (6.6-8.7) g/dL Albumin (3.5-5.2) g/dL Globulin (1.3-4.6) g/dL Urine Color Yellow (Yellow) Urine Appearance Clear (CLEAR) Urine pH 9 H (5-7) Ur Specific Gravit y 1.010 (1.005-1.030) Urine Protein 1+ H (Negative) Urine Glucose (UA) 2+ (Normal) Urine Ketones Negative (Negative) Urine Blood Neg (Negative) Urine Nitrate Negative (Negative) Urine Bilirubin Neg (Negative) Prot Sulfosalicyli c Acd Positive (Negative) Urine Urobilinogen Norm (Negative) mg/dL Ur Leukocyte Usha ase Negative (Negative) Urine RBC None (0-2) /hpf Urine WBC None (0-5) /hpf Ur Squamous Epith Cells 0-4 H (0-5) /hpf Amorphous Sediment Not Reportable Urine Bacteria None (NONE) /hpf Ethyl Alcohol (0-10) mg/dL 10/08/20 Range/Units 04:35 WBC (4.0-10.0) 10^3/ uL RBC (4.1-5.3) 10^6/u L Hgb (11.7-16.6) g/dL Hct (42.0-52.0) % MCV (80-94) fL MCH (28.0-34.0) pg MCHC (30.0-36.0) g/dL RDW (12.1-15.1) % Plt Count (130-400) 10^3/c mm MPV (7.4-10.4) fL Neut % (Auto) % Lymph % (Auto) % [place] % (Auto) % Eos % (Auto) % Baso % (Auto) % Neut # (Auto) (1.8-7.7) 10^3/u L Lymph # (Auto) (0.8-4.8) 10^3/u L [place] # (Auto) (0.2-0.9) 10^3/u L Eos # (Auto) (0.0-0.8) 10^3/u L Baso # (Auto) (0.0-0.1) 10^3/u L Nucleated RBC % (a uto) % Nucleated RBCs # /100WBC PT (12.1-14.9) SECO NDS INR (0.8-1.2) Sodium 140 (136-145) mmol/L Potassium 4.8 (3.5-5.1) mmol/L Chloride 97 L (98-107) mmol/L Carbon Dioxide 24 (22-29) mmol/L Anion Gap 23.8 H (5-19) BUN 59 H (8-23) mg/dL Creatinine 7.0 H* (0.7-1.2) mg/dL GFR Calculation 8.0 L (90-130) mL/min Glucose 186 H (65-115) mg/dL Calculated Osmolal ity 311 H (285-295) mOsm/k g Calcium 8.8 (8.5-10.5) mg/dL Total Bilirubin 0.3 (0.15-1.2) mg/dL AST 18 (0-40) U/L ALT 9 (0-41) U/L Alkaline Phosphata se 76 (40-130) IU/L NT-Pro-B Natriuret Pep 6085 H (0-125) pg/mL Total Protein 6.8 (6.6-8.7) g/dL Albumin 4.1 (3.5-5.2) g/dL Globulin 2.7 (1.3-4.6) g/dL Urine Color (Yellow) Urine Appearance (CLEAR) Urine pH (5-7) Ur Specific Gravit y (1.005-1.030) Urine Protein (Negative) Urine Glucose (UA) (Normal) Urine Ketones (Negative) Urine Blood (Negative) Urine Nitrate (Negative) Urine Bilirubin (Negative) Prot Sulfosalicyli c Acd (Negative) Urine Urobilinogen (Negative) mg/dL Ur Leukocyte Usha ase (Negative) Urine RBC (0-2) /hpf Urine WBC (0-5) /hpf Ur Squamous Epith Cells (0-5) /hpf Amorphous Sediment Urine Bacteria (NONE) /hpf Ethyl Alcohol < 10 (0-10) mg/dL Imaging Data^: CXR: Attestation: I personally reviewed and interpreted this imaging study as follows: My impression: LLL pneumonia CT Head: Attestation: I personally reviewed and interpreted this imaging study as follows: Radiologist's impression: [address] [address] [address] Scan Report Signed Patient: Delonte Bahena Unit #: [id number] : 1955 Age/Sex: 65 / M ADM Date: 10/08/20 Loc: ER Room/Bed: Attending Dr: Ordering Provider/Ordering MD: Eben Felix MD Date of Service: 10/08/20 Procedure(s): CT head wo con* [id number] Accession Number(s): [id number] Report Number: [id number] PROCEDURE INFORMATION: Exam: CT Head Without Contrast Exam date and time: 10/08/2020 4:27 AM Age: 65 years old Clinical indication: Altered mental status/memory loss; Confusion or disorientation; Patient HX: Onset of confusion with walking difficulty this a. M. ; Additional info: AMS TECHNIQUE: Imaging protocol: Computed tomography of the head without contrast. Radiation optimization: All CT scans at this facility use at least one of these dose optimization techniques: automated exposure control; mA and/or kV adjustment per patient size (includes targeted exams where dose is matched to clinical indication); or iterative reconstruction. Other technique: STROKE PROTOCOL was implemented. COMPARISON: No relevant prior studies available. RADIATION DOSE METRICS: Total DLP (mGy-cm): 867.04 FINDINGS: Brain: Normal. No hemorrhage. Unremarkable white matter. No mass effect. Cerebral ventricles: No ventriculomegaly. Bones/joints: Unremarkable. No acute fracture. Paranasal sinuses: Visualized sinuses are unremarkable. No fluid levels. Mastoid air cells: Visualized mastoid air cells are well aerated. Vasculature: Severe calcified intracranial atherosclerotic vessel disease. Soft tissues: Unremarkable. CT/CT head wo con* [id number] IMPRESSION: No acute intracranial findings. EKG Data^: EKG 1: Attestation: I personally reviewed and interpreted this EKG as follows: EKG interpretation date: 10/08/20 EKG interpretation time: 04:36 Interpretation: nsr hr [address] or t wave abnormalities qrs 94 qtc 409 Discharge Plan Discharge Patient Disposition: Admitted As Inpatient Clinical Impression: ESRD (end stage renal disease) Pneumonia Qualifiers: Pneumonia type: due to unspecified organism Laterality: left Lung location: lower lobe of lung Qualified Code(s): J18.9 - Pneumonia, unspecified organism Altered mental status Qualifiers: Altered mental status type: unspecified Qualified Code(s): R41.82 - Altered men talia status, unspecified Condition: Stable Coding Level of Care Code ED Branding Machine Operator for g Fwd Exam Comprehensive
[2020-10-08 04:39] LABS: Basophils % 0.4 %; Eosinophils # 0.2 10^3/uL (0.0-0.8); Hematocrit 32.2 % (42.0-52.0); Hemoglobin 9.6 g/dL (11.7-16.6); Lymphocytes # 1.3 10^3/uL (0.8-4.8); Lymphocytes % 13.8 %; Mean Corpuscular HGB Conc 29.8 g/dL (30.0-36.0); Mean Corpuscular Hemoglobin 31.2 pg (28.0-34.0); Mean Corpuscular Volume 104.5 fL (80-94); Mean Platelet Volume 9.5 fL (7.4-10.4); Monocytes # 1.3 10^3/uL (0.2-0.9); Monocytes % 13.6 %; Neutrophils # 6.39 10^3/uL (1.8-7.7); Neutrophils % 69.8 %; Nucleated Red Blood Cells % 0 %; Platelet Count 200 10^3/cmm (130-400); Red Blood Count 3.08 10^6/uL (4.1-5.3); Red Cell Distribution Width 17.2 % (12.1-15.1); White Blood Count 9.2 10^3/uL (4.0-10.0)
[2020-10-08 04:47] LABS: Add Urine Microscopic? YES; Bilirubin Urine Neg (Negative); Blood Urine Neg (Negative); Glucose Urine UA 2+ (Normal); Ketones Urine Negative (Negative); Leukocyte Esterase Urine Negative (Negative); Nitrate Urine Negative (Negative); Protein Urine 1+ (Negative); Sulfosalicylic Acid Urine Positive (Negative); Urine Appearance Clear (CLEAR); Urine Color Yellow (Yellow); Urobilinogen Urine Norm (Negative); pH Urine 9 (5-7)
[2020-10-08 04:48] LABS: Squamous Epithelial Cell Urine 0-4 /hpf (0-5)
[2020-10-08 04:49] LABS: Add Urine Culture? No
--- NOTE | 2020-10-08 05:06 | P.HP_ITS ---
Providers/Chief Complaint Primary Care Provider: JAIME Clement Chief Complaint: confusion/ams History of Present Illness Delonte Bahena is a 65 year old male who has history of end-stage renal disease status post renal transplant failure now requiring dialysis Tuesday, sleep apnea on CPAP, chronic immunosuppression, diabetes, grade 2 diastolic dysfunction, established coronary disease, cardiac arrest 08/30 status post PCI of left circumflex, was recently discharged from the hospital after management of NSTEMI status post cardiac cath which showed moderate disease of RCA, No PCI, medical management recommended, presented today with chief complaint of altered mental status. Patient is stating that he has not slept well in last 48 hours and took Ambien around 11 PM and went to bed, woke up around 1 AM found him in the kitchen with multiple cups filled with coffee, he also had his gums laid on the table and he fired couple of times in his front yard. Patient is stating that he was getting disturbed because of the birds and he was making coffee for the people outside his home. did not notice any strokelike symptoms, no recent fever however patient is endorsing productive cough. At night he uses 2 L of oxygen with CPAP. Of note, a week ago he finished prednisone taper for organizing pneumonia post Covid which was prescribed by Dr. Ramos. Previously his breathing improved after dialysis and fluid removal. Recently he has been eating chocolate and other junk food which is attributing to his low blood sugar however is denying hypoglycemic events Diagnostics in the ER revealedLeft-sided pneumonia without sepsis, was saturating well on 2 L nasal cannula, ABG shows chronic hypercapnia, BMP consistent with uremia Review of Systems Const: Reports: fatigue; Denies: fever(s) or chills Eyes: Denies: change in vision ENMT: Denies: throat pain Card: Reports: dyspnea on exertion; Denies: chest pain Resp: Reports: dyspnea and productive cough GI: Denies: abdominal pain : Denies: flank pain Musc: Denies: neck pain Skin/Breast: Reports: lesions Neuro: Reports: confusion Psych: Reports: anxiety, irritability and visual hallucinations Endo: Denies: polyuria Sohail/Lymph: Denies: easy bruising All/Imm: Denies: urticaria Medications/Allergies Home Medications Medication Instructions Recorded Confirmed Last Taken Type cyclosporine 100 mg PO BID 08/07/19 09/16/20 09/03/19 History aspirin 81 mg tablet,delayed 81 mg PO QAM 08/05/20 09/16/20 09/06/20 History release sevelamer carbonate 800 mg tablet See Rx Instructions .ROUTE .COMPLEX 08/05/20 09/16/20 Unknown History Levemir FlexTouch U-100 Insuln See Rx Instructions .ROUTE .COMPLEX 09/07/20 09/16/20 Unknown History Novolog Flexpen U-100 Insulin See Rx Instructions .ROUTE .COMPLEX 09/07/20 09/16/20 Unknown History Plavix 75 mg PO QPM 09/07/20 09/16/20 Unknown History famotidine 20 mg PO QAM 09/07/20 09/16/20 09/06/20 History hydrocodone-acetaminophen 1 tab PO Q8H PRN 09/07/20 09/16/20 Unknown History prednisone 5 mg PO QAM 09/07/20 09/16/20 09/06/20 History prednisone 30 mg PO QAM 09/07/20 09/16/20 09/06/20 History rosuvastatin 20 mg PO QPM 09/07/20 09/16/20 Unknown History torsemide 40 mg PO QAM 09/07/20 09/16/20 09/06/20 History folic acid 1 mg PO BID #60 tab 09/09/20 09/16/20 Unknown Rx carvedilol 3.125 mg tablet 3.125 mg PO BID #60 tab 09/16/20 09/16/20 Unknown Rx isosorbide mononitrate 10 mg tablet 10 mg PO BID 30 Days #60 tab 09/16/2012/01 Unknown Rx nitroglycerin 0.4 mg sublingual 0.4 mg SUBLINGUAL Q5M #30 tab 09/16/20 09/16/20 Unknown Rx tablet Allergies Allergy/AdvReac Type Severity Reaction Status Date / Time Iodinated Contrast Media Allergy Intermediate ADR-Itching Verified 10/08/20 04:25 zolpidem [From Ambien] Allergy ADR-Halluci Verified 10/08/20 04:25 nating PFS Acute PFSH: Medical History Anemia 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 CAD (coronary artery disease) Diabetes mellitus, type II ESRD (end stage renal disease) ESRD (end stage renal disease) on dialysis HTN (hypertension) with goal to be determined Myocardial infarction NSTEMI (non-ST elevated myocardial infarction) Right inguinal hernia Secondary hyperparathyroidism Surgical History H/O heart artery stent History of four vessel coronary artery bypass graft History of kidney transplant Hx laparoscopic cholecystectomy Hx of arteriovenostomy for renal dialysis Hx of cardiac cath Hx of kidney transplant Hx of lumbosacral spine surgery Family History Mother Dementia CAD (coronary artery disease) Aortic stenosis Father Chronic kidney disease (CKD) ESRD Cancer Prostate cancer Brother CAD (coronary artery disease) Diabetes Social History Smoking and tobacco status: former smoker Quit status (tobacco): has quit using tobacco Year quit tobacco: 2001 Former quit date comment: Hx of 2PPD x 20 Years Smoking risk assessment/counseling performed?: No Alcohol intake: never Counseling given: No Counseling given: No Lives independently: Yes Household members: spouse Marital status: Current occupational status: disabled History of recent travel: No Current gender identity: Male Vitals/I&O/Wt Last Vital Signs Temp 98.5 F 10/08/20 04:21 Pulse 98 10/08/20 04:38 Resp 24 H 10/08/20 04:38 BP 176/99 10/08/20 04:38 Pulse Ox 95 10/08/20 04:38 Weight last 48 hrs Weight 115.212 kg Physical Exam Narrative: EXAM NARRATIVE: Pleasant and cooperative male, morbidly obese Currently saturating well on 2 L nasal cannula Sitting in his bed able to mention above HPI Awake alert oriented x3 GCS 15, noticed akathisia and asterixis No strokelike symptoms EOMI, PERRLA S1, S2, loud systolic murmur right second intercostal space Distended abdomen, central obesity nontender bowel sound present Lower extremity trace edema Appears anxious No joint swelling Right arm fistula Data : 10/08/20 04:35 10/08/20 04:35 A&P Assessment and plan (1) Pneumonia: Status: Acute Qualifiers: Laterality: left Lung location: lower lobe of lung Pneumonia type: due to unspecified organism Qualified Code(s): J18.9 - Pneumonia, unspecified organism (2) Altered mental status: Status: Acute Qualifiers: Altered mental status type: unspecified Qualified Code(s): R41.82 - Altered mental status, unspecified (3) Obstructive sleep apnea: Status: Acute (4) Restrictive lung disease: Status: Acute (5) ESRD (end stage renal disease): Status: Acute (6) Acute delirium: Status: Acute (7) COPD exacerbation: Status: Acute Additional A&P Information Acute delirium with left-sided pneumonia Patient is immunocompromised Takes prednisone 5 mg along cyclosporine I would use vancomycin for MRSA coverage and cefepime for antipseudomonal coverage, please note he was recently treated for organizing pneumonia for fatmata ateral pulmonary consolidation especially left greater than right, would request CT chest for better delineation of pulmonary parenchymal lesion Check urine antigen and sputum culture blood culture obtained in the ER He is not septic on admission Chest x-ray consistent with left-sided infiltrate Currently saturating well on 2 L nasal cannula He is awake and alert oriented x3 at the time of my evaluation Recently he finished prednisone taper, took Ambien before going to bed today, his altered mental status/confusion and visual hallucination seems multifactorial likely hypoxia due to pneumonia and polypharmacy, CT head is unremarkable no signs of meningitis, borderline low B12 I would start him on cyanocobalamin daily regimen normal TSH Acute COPD exacerbation due to pneumonia ABG consistent with hypoxia Currently saturating well on 2-3 L nasal cannula Compensated hypercapnia End-stage renal disease Failed renal transplant currently on cyclosporine and prednisone 5 mg, No signs of adrenal crisis Telemetry nephro consulted and notified last dialysis session was on Tuesday Full code Renal dialysis diet DVT prophylaxis Heparin Attestations Medical Necessity Statement*: Anticipating stay in the hospital because more than 2 midnights considering immunocompromise state, acute delirium sleep exacerbation and left-sided pneumonia Time Spent in Patient Care: (>than 50% of time spent in counselling and/or direct pt care on unit) . 35mins Coding Level of Care Code Acute Cane Flume Chute Operator for Chg Fwd Diagnoses Pneumonia J18.9 Laterality: left Lung location: lower lobe of lung Pneumonia type: due to unspecified organism Altered mental status R41.82 Altered mental status type: unspecified Obstructive sleep apnea G47.33 Restrictive lung disease J98.4 ESRD (end stage renal disease) N18.6 Acute delirium R41.0 COPD exacerbation J44.1
[2020-10-08 05:12] LABS: Alanine Aminotransferase 9 U/L (0-41); Albumin Level 4.1 g/dL (3.5-5.2); Alkaline Phosphatase 76 IU/L (40-130); Anion Gap 23.8 (5-19); Aspartate Amino Transferase 18 U/L (0-40); Blood Urea Nitrogen 59 mg/dL (8-23); Calcium 8.8 mg/dL (8.5-10.5); Carbon Dioxide 24 mmol/L (22-29); Chloride 97 mmol/L (98-107); Globulin 2.7 g/dL (1.3-4.6); Glucose 186 mg/dL (65-115); NT Pro B Type Natriuretic Pept 6085 pg/mL (0-125); Osmolality Calculated 311 mOsm/kg (285-295); Potassium 4.8 mmol/L (3.5-5.1); Sodium 140 mmol/L (136-145); Total Bilirubin 0.3 mg/dL (0.15-1.2); Total Protein 6.8 g/dL (6.6-8.7)
[2020-10-08 05:16] LABS: Alcohol Level < 10 mg/dL (0-10)
[2020-10-08 05:33] LABS: ABG PCO2 35.3 mmHg (35-45); ABG PH Result 7.43 (7.35-7.45); Base Excess ABG -0.8 mmol/L (-2.0-2.0); Blood Gas Allen Test Pos; Blood Gas Sample Site Radial, left; Blood Gas Sample Type Arterial; HCO3 ABG 23.3 mmol/L (22-26); Oxygen Device ROOM AIR; PO2 ABG 58.6 mmHg (80.0-100.0)
[2020-10-08] MEDS: piperacillin-tazobactam 2.25 GM in sodium chloride 0.9% (plus) 50 ML IV (05:45)
[2020-10-08] MEDS: vancomycin 1,000 MG in sodium chloride 0.9% 250 ML 250 MG IV ×2 (06:14→10:58)
--- NOTE | 2020-10-08 06:37 | CT_ITS ---
WS: [id number] CT CHEST WITHOUT INTRAVENOUS CONTRAST HISTORY: Hypoxia and delirium TECHNIQUE: Contiguous 5 mm axial imaging performed on the thorax. Coronal and sagittal reformats are submitted. All CT scans at [facility] use at least one of these dose optimization techniq ues: automated exposure control; mA and/or kV adjustment per patient size (includes targeted exams wh ere dose is matched to clinical indication); or iterative reconstruction. CONTRAST: None DLP: 1288.81 mGy.cm COMPARISON: 08/28/2020 Lungs and central airway: Lung volumes are slightly decreased. There is moderate bilateral interstiti al thickening and reticulations. Mild honeycombing and mild traction bronchiectasis in the lower lung jay bilaterally. There is also increased pleural fat deposition. No pneumonia. No focal nodule. Pleura: Increased pleural-based fat. Heart and pericardium: Moderate enlargement the heart chambers. Coronary artery stents and prior CABG . Mediastinum and eric: Small benign lymph nodes in the mediastinum and hilar region. Vessels: Normal size pulmonary artery. Mild atherosclerosis aorta and great vessels. Chest wall and lower neck: No soft tissue masses. Upper abdomen: Upper abdomen includes a partially visualized abdominal aortic aneurysm measuring 5.6 x 5.5 cm. Additional extensive atherosclerotic calcifications extend into the celiac axis and SMA. Re nal arteries are not identified. The RIGHT kidney may have been removed. The LEFT kidney is severely atrophic. Prior cholecystectomy. Osseous structures: Mid to lower thoracic spine spondylitic changes. No fractures or bone destruction . CT/CT chest wo con [id number] IMPRESSION: 1. Changes of idiopathic pulmonary fibrosis without progression since 1. 2. Abdominal aortic aneurysm incompletely visualized measures 5.6 x 5.5 cm. Re commend further evaluation to evaluate the entire aorta. No prior studies indic ating an aortic aneurysm although this may be a known as there is severe LEFT r enal atrophy. 3. Severe atherosclerosis within the celiac axis and SMA. 4. Severe atrophy LEFT kidney. RIGHT kidney is not identified and may have bee n removed. 5. Prior cholecystectomy. 6. Cardiomegaly with prior CABG.
[2020-10-08] MEDS: aspirin 81 mg EC Tablet PO (06:48)
[2020-10-08] MEDS: predniSONE 5 mg Tablet PO (06:48)
[2020-10-08] MEDS: famotidine 20 mg Tablet PO (06:48)
[2020-10-08] MEDS: TORSEmide 20 mg Tablet 40 MG PO (06:49)
[2020-10-08 06:55] LABS: Glucose Point of Care 196 mg/dL (70-110)
[2020-10-08 07:15] LABS: Procalcitonin 0.63 ng/mL (0-0.5); Prolactin 20.98 ng/mL (4.0-15.2)
[2020-10-08 07:16] LABS: Ammonia 21 umol/L (16-60)
--- NOTE | 2020-10-08 09:17 | PC.PHAR ---
pt states he and his take care of his medications-pts states the pt is only taking 5mg of prednisone -pt and pts states the dr told the pt to increase the crestor to 40mg daily-ext med history shows last filled on 10/04/20 90d/s-pts states the pt isnt suppose to takes ambien but states the pt found it last night and took it-
[2020-10-08] MEDS: sennosides-docusate Tablet 1 TAB PO (09:29)
[2020-10-08] MEDS: cyanocobalamin 1,000 mcg Tablet 1000 MCG PO (09:29)
[2020-10-08] MEDS: folic acid 1 mg Tablet PO ×2 (09:29→17:19)
[2020-10-08] MEDS: heparin 5,000 unit/mL INJ 1 mL 5000 UNIT SUBCUT ×3 (09:29→23:20)
[2020-10-08] MEDS: carvedilol 3.125 mg Tablet PO ×2 (09:30→17:20)
[2020-10-08] MEDS: cefepime 2,000 MG in sodium chloride 0.9% (plus) 50 ML 100 MG IV (09:31)
[2020-10-08] MEDS: sevelamer 800 mg Tablet PO ×2 (09:40→17:20)
[2020-10-08] MEDS: isosorbide mononitrate 20 mg Tablet 10 MG PO ×2 (09:40→17:19)
--- NOTE | 2020-10-08 10:18 | PM.PN ---
Vitals/I&O/Wt Last Vital Signs Temp 98.2 F 10/08/20 08:25 Pulse 98 10/08/20 08:25 Resp 19 H 10/08/20 08:25 BP 187/74 10/08/20 08:25 Pulse Ox 98 10/08/20 08:25 10/07/20 10/08/20 10/08/20 22:59 06:59 14:59 Intake Total 50 / 50 250 / 250 Balance 50 / 50 250 / 250 Weight last 48 hrs Weight 115.212 kg Physical Exam Const: COMMON NORMALS: patient oriented x3 HENMT: COMMON NORMALS: normocephalic and atraumatic HEAD & SCALP: normocephalic and atraumatic Resp: COMMON NORMALS: clear to auscultation bilaterally EFFORT & INSPECTION: Yes symmetric chest movement AUSCULTATION: clear to auscultation bilaterally Cardio: COMMON NORMALS: regular rate, regular rhythm, S1 normal heart sound present, S2 normal heart sound present, No gallops present (Cardio), No murmurs present (Cardio), No rub (Cardio) and Peripheral pulses 2+ throughout RATE: regular rate RHYTHM: regular rhythm HEART SOUNDS: S1 normal heart sound present and S2 normal heart sound present PERIPHERAL PULSES: Peripheral pulses 2+ throughout GI: COMMON NORMALS: Normal to inspection, nondistended, normoactive bowel sounds present, Soft to palpation, non-tender, No hepatosplenomegaly present and no masses AUSCULTATION: Yes normoactive bowel sounds PALPATION: Yes Soft to palpation and Yes No hepatosplenomegaly present RECTAL EXAM: Yes deferred Extremity: NARRATIVE EXTREMITY EXAM: 2+ B/L Pitting Edema. Neuro: COMMON NORMALS: patient oriented x3 Data : 10/08/20 04:35 10/08/20 04:35 Micro: Microbiology 10/08/20 04:30 Legionella Urinary Antigen - Final Urine,Clean Catch 10/08/20 05:00 Blood Culture - Preliminary Blood SPECIMEN COLLECTED 10/08/20 04:45 Blood Culture - Preliminary Blood SPECIMEN COLLECTED A&P Assessment and plan (1) Altered mental status: Ac Encephalopathy likely 2/2 to medication use (excess Ambien use ). Currently has resolved. Patient is at his baseline mentation. CT head wo con:; No acute intracranial pathology Status: Acute Qualifiers: Altered mental status type: unspecified Qualified Code(s): R41.82 - Altered mental status, unspecified (2) Pneumonia: CT chest wo con: is suggestive pipe Changes of idiopathic pulmonary fibrosis without progression since 08/28/2020. Patient deny any Cough,worsening SOB,minimal leukocyotosis can be attributed to prednisone use, Procalcitonin: 0.63, urine Legionella antigen, as well as bacterial antigen panel: Is negative. patient is at his baseline oxygen requirement.Has been afebrile. We will scale down the antibiotic coverage, to levofloxacin renally dosed. Status: Acute Qualifiers: Laterality: left Lung location: lower lobe of lung Pneumonia type: due to unspecified organism Qualified Code(s): J18.9 - Pneumonia, unspecified organism (3) Obstructive sleep apnea: Status: Acute (4) Restrictive lung disease: Status: Acute (5) ESRD (end stage renal disease): Plan is to receive dialysis today. Status: Acute (6) Acute delirium: Resolved Status: Acute (7) COPD exacerbation: Currently not in exacerbation. Duo nebs Supplemental oxygen to maintain saturation greater than 95% Status: Acute Additional A&P Information Acute delirium with left-sided pneumonia Patient is immunocompromised Takes prednisone 5 mg along cyclosporine I would use vancomycin for MRSA coverage and cefepime for antipseudomonal coverage, please note he was recently treated for organizing pneumonia for bilateral pulmonary consolidation especially left greater than right, would request CT chest for better delineation of pulmonary parenchymal lesion Check urine antigen and sputum culture blood culture obtained in the ER He is not septic on admission Chest x-ray consistent with left-sided infiltrate Currently saturating well on 2 L nasal cannula He is awake and alert oriented x3 at the time of my evaluation Recently he finished prednisone taper, took Ambien before going to bed today, his altered mental status/confusion and visual hallucination seems multifactorial likely hypoxia due to pneumonia and polypharmacy, CT head is unremarkable no signs of meningitis, borderline low B12 I would start him on cyanocobalamin daily regimen normal TSH Acute COPD exacerbation due to pneumonia ABG consistent with hypoxia Currently saturating well on 2-3 L nasal cannula Compensated hypercapnia End-stage renal disease Failed renal transplant currently on cyclosporine and prednisone 5 mg, No signs of adrenal crisis Telemetry nephro consulted and notified last dialysis session was on Tuesday Full code Renal dialysis diet DVT prophylaxis Heparin Attestations Medical Necessity Statement*: Patient needs to be in hospital for management of above-defined problem. Coding Level of Care Code Acute Core Laying Machine Operator for Chg Fwd Diagnoses Altered mental status R41.82 Altered mental status type: unspecified Pneumonia J18.9 Laterality: left Lung location: lower lobe of lung Pneumonia type: due to unspecified organism Obstructive sleep apnea G47.33 Restrictive lung disease J98.4 ESRD (end stage renal disease) N18.6 Acute delirium R41.0 COPD exacerbation J44.1
--- NOTE | 2020-10-08 11:18 | P.CONIM_ITS ---
Providers/Reason For Consult Consulting Physican/Specialty*: Nephrology Reason for Consult*: ESRD mgmt Attending Physician: Colton Santiago MD Primary Care Provider: JAIME Clement History of Present Illness History of Present Illness Thank you for consultation, today had the pleasure of reviewing this very pleasant 65-year-old gentleman whom I met during a prior hospitalization. He presents with confusion that developed last night, his found him with numerous coffee cups which were filled, his guns laid out on the table, these were apparently discharged his backyard. There is some report that he had some Ambien last night. Today he feels much improved, no confusion, he is back to his baseline mental status. He has a known history of end-stage renal disease status post renal transplant failure now requiring dialysis Tuesday, sleep apnea on CPAP, ch ronic immunosuppression, diabetes, grade 2 diastolic dysfunction, established coronary disease, cardiac arrest 08/30 status post PCI of left circumflex. He last got hemodialysis on Tuesday, this was quite short slightly because of cramping. He has a fistula which is working very well. Some mild lower extremity edema, is not severe. No other overt uremic symptoms at this time. Review of Systems Narrative: ROS - 12 point review of systems completed per HPI and subjective assessment, this includes Constitutional: No weakness, fatigue Respiratory: No SOB on exertion, comfortable at rest CardioVasc: No chest pain, palpitations Gastrointestinal: No nausea, no vomiting Neurological: No seizures, no AMS Derm: No new rashes, lesions or wounds Immunological: No seasonal and no food allergies Meds/Allergies Home Medications and Allergies Home Medications Medication Instructions Recorded Confirmed Last Taken Type cyclosporine 100 mg PO BID 08/07/19 10/08/20 09/03/19 History aspirin 81 mg tablet,delayed 81 mg PO QAM 08/05/20 10/08/20 09/06/20 History release sevelamer carbonate 800 mg tablet 1,600 mg PO TID 08/05/20 10/08/20 Unknown History Levemir FlexTouch U-100 Insuln 80 unit SUBCUT BID 09/07/20 10/08/20 Unknown History clopidogrel [Plavix] 75 mg PO QPM 09/07/20 10/08/20 Unknown History famotidine 20 mg PO QAM 09/07/20 10/08/20 09/06/20 History hydrocodone-acetaminophen 0.5 - 1 tab PO Q8H PRN 09/07/20 10/08/20 Unknown History insulin aspart U-100 [Novolog 18 unit SUBCUT .TID AND SS 09/07/20 10/08/20 Unknown History Flexpen U-100 Insulin] prednisone 5 mg PO QAM 09/07/20 10/08/20 09/06/20 History rosuvastatin 40 mg PO BEDTIME 09/07/20 10/08/20 Unknown History torsemide 40 mg PO QAM 09/07/20 10/08/20 09/06/20 History folic acid 1 mg PO BID #60 tab 09/09/20 10/08/20 Unknown Rx carvedilol 3.125 mg tablet 3.125 mg PO BID #60 tab 09/16/20 10/08/20 Unknown Rx isosorbide mononitrate 10 mg tablet 10 mg PO BID 30 Days #60 tab 09/16/20 10/08/20 Unknown Rx nitroglycerin 0.4 mg sublingual 0.4 mg SUBLINGUAL Q5M #30 tab 09/16/20 10/08/20 Unknown Rx tablet diphenhydramine-acetaminophen 1 - 2 tab PO PRN 10/08/20 10/08/20 Unknown History [Tylenol PM Extra Strength] zolpidem [Ambien] 10 mg PO ONCE 10/08/20 10/08/20 10/07/20 History Allergies Allergy/AdvReac Type Severity Reaction Status Date / Time Iodinated Contrast Media Allergy Intermediate ADR-Itching Verified 10/08/20 04:25 zolpidem [From Ambien] Allergy ADR-Halluci Verified 10/08/20 04:25 brent Current Medications Current Medications Generic Name Dose Route Start Last Admin Trade Name Freq PRN Reason Stop Dose Admin Aspirin 81 mg 10/08/20 06:30 10/08/20 06:48 Aspirin 81 Mg Ec Tablet PO 81 mg QAM HUMPHREY Administration Carvedilol 3.125 mg 10/08/20 09:00 10/08/20 09:30 Carvedilol 3.125 Mg Tablet PO 3.125 mg BID HUMPHREY Administration Cyanocobalamin 1,000 mcg 10/08/20 09:00 10/08/20 09:29 Cyanocobalamin 1,000 Mcg Tablet PO 1,000 mcg DAILY HUMPHREY Administration Cyclosporine 100 mg 10/08/20 09:00 10/08/20 09:36 Cyclosporine 100 Mg Capsule PO Not Given BID HUMPHREY Famotidine 20 mg 10/08/20 06:30 10/08/20 06:48 Famotidine 20 Mg Tablet PO 20 mg QAM HUMPHREY Administration Folic Acid 1 mg 10/08/20 09:00 10/08/20 09:29 Folic Acid 1 Mg Tablet PO 1 mg BID HUMPHREY Administration Heparin Sodium (Beef Lung) 5,000 unit 10/08/20 08:00 10/08/20 09:29 Heparin 5,000 Unit/Ml Inj 1 Ml SUBCUT 5,000 unit Q8H HUMPHREY Administration Vancomycin HCl 1,000 mg/ 250 mls @ 250 mls/hr 10/08/20 09:00 10/08/20 10:58 Sodium Chloride IV 250 mls/hr MoWeFr HUMPHREY Administration Insulin Aspart 0 unit 10/08/20 08:00 10/08/20 09:40 Insulin Aspart 100 Unit/1 Ml SUBCUT 6 unit WM&BEDTIME HUMPHREY Administration Protocol Insulin Detemir 80 unit 10/08/20 09:00 10/08/20 09:40 Insulin Detemir 100 Units/1 Ml SUBCUT 80 unit BID HUMPHREY Administration Isosorbide Mononitrate 10 mg 10/08/20 09:00 10/08/20 09:40 Isosorbide Mononitrate 20 Mg Tablet PO 10 mg BID HUMPHREY Administration Prednisone 5 mg 10/08/20 06:30 10/08/20 06:48 Prednisone 5 Mg Tablet PO 5 mg QAM HUMPHRYE Administration Senna/Docusate Sodium 1 tab 10/08/20 09:00 10/08/20 09:29 Sennosides-Docusate Tablet PO 1 tab DAILY HUMPHREY Administration Sevelamer Carbonate 800 mg 10/08/20 08:00 10/08/20 09:40 Sevelamer 800 Mg Tablet PO 800 mg TIDWM HUMPHREY Administration Torsemide 40 mg 10/08/20 06:30 10/08/20 06:49 Torsemide 20 Mg Tablet PO 40 mg QAM HUMPHREY Administration PFSH Acute PFSH: Medical History Anemia 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 CAD (coronary artery disease) Diabetes mellitus, type II ESRD (end stage renal disease) ESRD (end stage renal disease) on dialysis HTN (hypertension) with goal to be determined Myocardial infarction NSTEMI (non-ST elevated myocardial infarction) Right inguinal hernia Secondary hyperparathyroidism Surgical History H/O heart artery stent History of four vessel coronary artery bypass graft History of kidney transplant Hx laparoscopic cholecystectomy Hx of arteriovenostomy for renal dialysis Hx of cardiac cath Hx of kidney transplant Hx of lumbosacral spine surgery Family History Mother Dementia CAD (coronary artery disease) Aortic stenosis Father Chronic kidney disease (CKD) ESRD Cancer Prostate cancer Brother CAD (coronary artery disease) Diabetes Social History Smoking and tobacco status: former smoker Quit status (tobacco): has quit using tobacco Year quit tobacco: 2001 Former quit date comment: Hx of 2PPD x 20 Years Smoking risk assessment/counseling performed?: No Alcohol intake: never Counseling given: No Counseling given: No Lives independently: Yes Household members: spouse Marital status: Current occupational status: disabled History of recent travel: No Current gender identity: Male Vitals/I&O/Wt Last Vital Signs Temp 97.6 F 10/08/20 11:09 Pulse 79 10/08/20 11:09 Resp 17 10/08/20 11:09 BP 113/70 10/08/20 11:09 Pulse Ox 100 10/08/20 11:09 10/07/20 10/08/20 10/08/20 22:59 06:59 14:59 Intake Total 50 / 50 300 / 300 Balance 50 / 50 300 / 300 Weight last 48 hrs Weight 115.212 kg Physical Exam Narrative: EXAM NARRATIVE: Constitutional: Awake, comfortable HEENT: Wet mucosa, no jvp, non icteric Lungs: Bilaterally clear without discernible wheeze, rales in all lung zones CVS: S1 S2, no murmurs Abdo: Soft, BS ok Ext 4: Minimal edema, peripheral perfusion with no cyanosis Neurological: Grossly non-focal Data Micro: Micro: Microbiology 10/08/20 04:30 Legionella Urinary Antigen - Final Urine,Clean Catch Bacterial Antigens - Final 10/08/20 05:00 Blood Culture - Pr eliminary Blood SPECIMEN COLLEC RHONA 10/08/20 04:45 Blood Culture - Pr eliminary Blood SPECIMEN DEBORA MELGOZA A&P Additional A&P Information 1. ESRD We will dialyze him today on a 2K bath, ultrafiltration goal of 2-3 L AV fistula seems to be functioning well. Dose medication for GFR less than 15 on dialysis. 2. Altered mental status Appears to be secondary to medication i.e. Ambien which is now resolved. He is back to his baseline mental status. 3. Hemodynamics Blood pressure somewhat fluctuant, however, overall stable. Will monitor closely during hemodialysis. 4. Chronic outpatient ESRD issues Easily managed in the outpatient dialysis clinic as part of standard monthly management including titration of medication for secondary hyperparathyroidism and anemia etc. Thank you for consultation, as always it is a pleasure to follow these patients with you Emre Schultz MD Nephrology [phone] Patient seen and examined via telemedicine, with the assistance of the bedside RN > 25 min spent in evaluation and mgmt of patient Coding Level of Care Code Acute Senior Accounts Payable Clerk for Kaycee Dejesus
[2020-10-08] MEDS: HYDROcodone-acetaminophen 10-325 mg Tablet 1 TAB PO ×2 (11:48→19:42)
[2020-10-08] MEDS: clopidogrel 75 mg Tablet PO (17:20)
[2020-10-08] MEDS: cefTRIAXone 1,000 MG in sodium chloride 0.9% (plus) 50 ML 100 MG IV (17:27)
[2020-10-08 17:29] LABS: Glucose Point of Care 118 mg/dL (70-110)
[2020-10-08] MEDS: azithromycin 500 MG in sodium chloride 0.9% 250 ML 250 MG IV (18:21)
[2020-10-08 20:32] LABS: Glucose Point of Care 259 mg/dL (70-110)
[2020-10-08] MEDS: ipratropium-albuterol 3 mL Neb INHALATION (21:52)
[2020-10-09 00:17] VITALS: BP 153/73; PULSE 86; RESP 20; TEMP 37; O2SAT 95
[2020-10-09 04:16] VITALS: BP 116/71; PULSE 99; RESP 20; TEMP 36.8; O2SAT 94
[2020-10-09] MEDS: HYDROcodone-acetaminophen 10-325 mg Tablet 1 TAB PO (04:18)
[2020-10-09 05:27] LABS: Basophils % 0.5 %; Eosinophils # 0.1 10^3/uL (0.0-0.8); Eosinophils % 2.1 %; Hematocrit 30.5 % (42.0-52.0); Hemoglobin 9.2 g/dL (11.7-16.6); Lymphocytes % 15.7 %; Mean Corpuscular HGB Conc 30.2 g/dL (30.0-36.0); Mean Corpuscular Hemoglobin 30.8 pg (28.0-34.0); Mean Platelet Volume 9.6 fL (7.4-10.4); Monocytes % 15.3 %; Neutrophils # 4.31 10^3/uL (1.8-7.7); Neutrophils % 65.9 %; Nucleated Red Blood Cells % 0 %; Platelet Count 179 10^3/cmm (130-400); Red Blood Count 2.99 10^6/uL (4.1-5.3); Red Cell Distribution Width 17.5 % (12.1-15.1); White Blood Count 6.5 10^3/uL (4.0-10.0)
[2020-10-09] MEDS: predniSONE 5 mg Tablet PO (05:39)
[2020-10-09] MEDS: famotidine 20 mg Tablet PO (05:39)
[2020-10-09] MEDS: aspirin 81 mg EC Tablet PO (05:39)
[2020-10-09] MEDS: TORSEmide 20 mg Tablet 40 MG PO (05:39)
[2020-10-09 05:47] LABS: Anion Gap 17.8 (5-19); Blood Urea Nitrogen 31 mg/dL (8-23); Calcium 9.1 mg/dL (8.5-10.5); Carbon Dioxide 27 mmol/L (22-29); Chloride 97 mmol/L (98-107); Glucose 92 mg/dL (65-115); Osmolality Calculated 292 mOsm/kg (285-295); Potassium 3.8 mmol/L (3.5-5.1); Sodium 138 mmol/L (136-145)
[2020-10-09 06:27] LABS: Glucose Point of Care 117 mg/dL (70-110)
[2020-10-09 08:00] VITALS: BP 145/68; PULSE 81; RESP 18; TEMP 36.4; O2SAT 96
[2020-10-09 08:39] VITALS: PULSE 88; RESP 17; O2SAT 97
[2020-10-09] MEDS: sevelamer 800 mg Tablet PO ×2 (08:56→11:45)
[2020-10-09] MEDS: cyanocobalamin 1,000 mcg Tablet 1000 MCG PO (08:56)
[2020-10-09] MEDS: heparin 5,000 unit/mL INJ 1 mL 5000 UNIT SUBCUT (08:56)
[2020-10-09] MEDS: carvedilol 3.125 mg Tablet PO (08:56)
[2020-10-09] MEDS: isosorbide mononitrate 20 mg Tablet 10 MG PO (08:56)
[2020-10-09] MEDS: folic acid 1 mg Tablet PO (08:56)
[2020-10-09] MEDS: sennosides-docusate Tablet 1 TAB PO (08:56)
--- NOTE | 2020-10-09 09:32 | P.PN_ITS ---
Subjective Subjective: Interval history: feels well, uses O2 at home Medications: Reviewed: Yes Vitals/I&O/Wt Last Vital Signs Temp 97.5 F L 10/09/20 08:00 Pulse 88 10/09/20 08:39 Resp 17 10/09/20 08:39 BP 145/68 10/09/20 08:00 Pulse Ox 97 10/09/20 08:39 10/08/20 10/09/20 10/09/20 22:59 06:59 14:59 Intake Total 860 / 1410 240 / 240 Balance 860 / 1410 240 / 240 Weight last 48 hrs Weight 115.212 kg Physical Exam Const: COMMON NORMALS: no acute distress GENERAL APPEARANCE: cooperative Extremity: GENERAL: Yes AV fistula (right forearm + thrill per RN) and Yes edema (trace) Data : 10/09/20 04:45 10/09/20 04:45 Micro: Microbiology 10/08/20 05:00 Blood Culture - Preliminary Blood NEGATIVE TO DATE 10/08/20 04:45 Blood Culture - Preliminary Blood NEGATIVE TO DATE 10/08/20 04:30 Legionella Urinary Antigen - Final Urine,Clean Catch Bacterial Antigens - Final A&P Additional A&P Information Impression: 1. ESRD, receives HD MWF 2. Anemia 3. Altered mental status - resolved 4. LLL pneumonia, on ceftriaxone Recommendation: continue HD MWF, No IVs, BPs blood draws right arm. I asked him to confirm with transplant center that they recommend he continue cyclosporine. If discharged, he will return to outpatient unit tomorrow. Attestations Medical Necessity Statement*: per primary service Time Spent in Patient Care: 16 - 35 minutes Coding Level of Care Code Acute Boiler Reliner for Kaycee Dejesus
--- NOTE | 2020-10-09 10:59 | P.DS_ITS ---
Discharge Providers Date of Admission: 10/08/20 05:34 Date of Discharge: October 09, 2020 Attending Provider at Admission: Veronica Restrepo MD Attending Provider at Discharge: Colton Santiago MD Primary Care Provider: JAIME Clement Diagnoses at Discharge Discharge Diagnosis (1) Altered mental status: Status: Resolved Qualifiers: Altered mental status type: unspecified Qualified Code(s): R41.82 - Altered mental status, unspecified (2) Pneumonia: Status: Resolved Qualifiers: Laterality: left Lung location: lower lobe of lung Pneumonia type: due to unspecified organism Qualified Code(s): J18.9 - Pneumonia, unspecified organism (3) Obstructive sleep apnea: Status: Chronic (4) Restrictive lung disease: Status: Chronic (5) ESRD (end stage renal disease): Status: Chronic (6) Acute delirium: Status: Resolved (7) COPD exacerbation: Status: Resolved Reason for Visit Reason for Visit: confusion/ams Hospital Course Hospital Course 65 year old male who has history of end-stage renal disease status post renal transplant failure now requiring dialysis Tuesday, sleep apnea on CPAP, chronic immunosuppression, diabetes, grade 2 diastolic dysfunction, established coronary disease, cardiac arrest 08/30 status post PCI of left circumflex, was recently discharged from the hospital after management of NSTEMI status post cardiac cath which showed moderate disease of RCA, No PCI, medical management recommended, was admitted for the management of acute encephalopathy likely 2/[address] head wo con:; No acute intracranial pathology.All other encephalopathy work up was for most part was pointing in the direction of ambien use.Ac encephalopathy has resolved prior to the discharge, he was AO *3. He was also admitted for possible PNA based on the initial imaging studies ( C.T Chest and xray) and at the time of admission he was started on van and cefepime.Official C.T Chest without contrast was suggestive of Changes of idiopathic pulmonary fibrosis without progression since 08/28/2020.Patient denied any Cough,worsening SOB,minimal leukocyotosis can be attributed to prednisone use, Procalcitonin: 0.63, urine Legionella antigen, as well as bacterial antigen panel: Is negative. patient was at his baseline oxygen requirement.Remained afebrile.Blood culture prelim remained negative. Abx coverage was scaled down to Cef and azithromycin.There was no need for him to be discharged on any abxs. Patient received routine H/D during the hospital stay.Renal was on board. Patient responded well to the above medical management and was discharged in stable condition.He will continue to follow Cardiology as well as his PCP as outpatient. Physical Exam Const: COMMON NORMALS: patient oriented x3 HENMT: COMMON NORMALS: normocephalic and atraumatic HEAD & SCALP: normocephalic and atraumatic Resp: COMMON NORMALS: clear to auscultation bilaterally EFFORT & INSPECTION: Yes symmetric chest movement AUSCULTATION: clear to auscultation bilaterally Cardio: COMMON NORMALS: regular rate, regular rhythm, S1 normal heart sound present, S2 normal heart sound present, No gallops present (Cardio), No murmurs present (Cardio), No rub (Cardio) and Peripheral pulses 2+ throughout RATE: regular rate RHYTHM: regular rhythm HEART SOUNDS: S1 normal heart sound present and S2 normal heart sound present PERIPHERAL PULSES: Peripheral pulses 2+ throughout GI: COMMON NORMALS: Normal to inspection, nondistended, normoactive bowel sounds present, Soft to palpation, non-tender, No hepatosplenomegaly present and no masses AUSCULTATION: Yes normoactive bowel sounds PALPATION: Yes Soft to palpation and Yes No hepatosplenomegaly present RECTAL EXAM: Yes deferred Extremity: NARRATIVE EXTREMITY EXAM: 1+ B/L Pitting Edema. Neuro: COMMON NORMALS: patient oriented x3 Discharge Data Data Completed and Pending: Completed Studies During Hospitalization Category Date Time Status CT chest wo con 7 1250 Routine Cat Scan 10/08/20 06:[address] head wo con* 7 0450 Urgent Cat Scan 10/08/20 04:24 Completed XR chest 1V humera ble 17098 Urgent Exams 10/08/20 04:24 Completed Pending at discharge Category Date Time Status Blood Culture Sta t Lab 10/08/20 05:00 Results Sputum Culture an d Gram Stain [facility] 10/08/20 06:30 Uncollected Labs from last 24 hours 10/09/20 10/09/20 10/09/20 06:17 04:45 04:45 WBC 6.5 RBC 2.99 L Hgb 9.2 L Hct 30.5 L MCV 102.0 H MCH 30.8 MCHC 30.2 RDW 17.5 H Plt Count 179 MPV 9.6 Neut % (Auto) 65.9 Lymph % (Auto) 15.7 [place] % (Auto) 15.3 Eos % (Auto) 2.1 Baso % (Auto) 0.5 Neut # (Auto) 4.31 Lymph # (Auto) 1.0 [place] # (Auto) 1.0 H Eos # (Auto) 0.1 Baso # (Auto) 0.0 Nucleated RBC % (a uto) 0 Nucleated RBCs # 0.0 Sodium 138 Potassium 3.8 Chloride 97 L Carbon Dioxide 27 Anion Gap 17.8 BUN 31 H Creatinine 5.3 H GFR Calculation 11.0 L Glucose 92 POC Glucose 117 H Calculated Osmolal ity 292 Calcium 9.1 10/08/20 10/08/20 20:28 17:15 WBC RBC Hgb Hct MCV MCH MCHC RDW Plt Count MPV Neut % (Auto) Lymph % (Auto) [place] % (Auto) Eos % (Auto) Baso % (Auto) Neut # (Auto) Lymph # (Auto) [place] # (Auto) Eos # (Auto) Baso # (Auto) Nucleated RBC % (a uto) Nucleated RBCs # Sodium Potassium Chloride Carbon Dioxide Anion Gap BUN Creatinine GFR Calculation Glucose POC Glucose 259 H 118 H Calculated Osmolal ity Calcium Vitals: Last Vital Signs Temp 97.5 F L 10/09/20 08:00 Pulse 88 10/09/20 08:39 Resp 17 10/09/20 08:39 BP 145/68 10/09/20 08:00 Pulse Ox 97 10/09/20 08:39 Discharge Plan Discharge Patient Disposition: Home Condition: Stable Prescriptions: Continued sevelamer carbonate [Renvela] 800 mg tablet 1,600 mg PO TID RF: 0 aspirin [Adult Low Dose Aspirin] 81 mg tablet,delayed release (DR/EC) 81 mg PO QAM RF: 0 nitroglycerin 0.4 mg tablet, sublingual 0.4 mg sublingual Q5M Qty: 30 RF: 2 isosorbide mononitrate 10 mg tablet 10 mg PO BID 30 Days Qty: 60 RF: 4 carvedilol 3.125 mg tablet 3.125 mg PO BID Qty: 60 RF: 2 cyclosporine 100 mg Capsule 100 mg PO BID RF: 0 Ambien 10 mg Tablet 10 mg PO ONCE RF: 0 Tylenol PM Extra Strength 25-500 mg Tablet 1 - 2 tab PO PRN RF: 0 torsemide 20 mg tablet 40 mg PO QAM RF: 0 prednisone 5 mg tablet 5 mg PO QAM RF: 0 hydrocodone-acetaminophen 10-325 mg tablet 0.5 - 1 tab PO Q8H PRN (Reason: Pain) RF: 0 famotidine 20 mg Tablet 20 mg PO QAM RF: 0 insulin aspart U-100 [Novolog Flexpen U-100 Insulin] 100 unit/mL (3 mL) insulin pen 18 unit SUBCUT .TID AND SS RF: 0 rosuvastatin 20 mg Tablet 40 mg PO BEDTIME RF: 0 Levemir FlexTouch U-100 Insuln 100 unit/mL (3 mL) insulin pen 80 unit SUBCUT BID RF: 0 clopidogrel [Plavix] 75 mg tablet 75 mg PO QPM RF: 0 folic acid 1 mg Tablet 1 mg PO BID Qty: 60 RF: 0 Discharge Orders: Discharge Order (Routine); Ordered 10/09/20 Ordered By: Colton Santiago Referrals: Page Conway FNP [Primary Care Provider] - 10/16/20 10:00 am Discharge Diet: Cardiac Discharge Activity: Resume usual activity Patient Instructions: COPD, Acute Delirium (DC), COPD Stoplight, Opioid Safety, Pneumonia Stoplight, Pneumonia - Viral Discharge Attestations Time Spent in Discharge Care*: less than 30 min Specific Discharge Activities: educating patient, educating and/or supporting family/caregiver, discussing with geriatric case manager/social workers/dc planners, documenting/other paperwork and evaluating patient/reviewing data Status at Discharge: Cognitive status at discharge: cognitively intact , Behavioral status at discharge: cooperative , Functional status at discharge: independent ambulation Overall status at discharge: patient is back to baseline Quality Metrics Clinical Quality Measures During this hospital stay, did patient experience: None Coding Level of Care Code Acute Chg FW DC note Exam Detailed Diagnoses Altered mental status R41.82 Altered mental status type: unspecified Pneumonia J18.9 Laterality: left Lung location: lower lobe of lung Pneumonia type: due to unspecified organism Obstructive sleep apnea G47.33 Restrictive lung disease J98.4 ESRD (end stage renal disease) N18.6 Acute delirium R41.0 COPD exacerbation J44.1
--- NOTE | 2020-10-09 10:59 | PC.CHAP ---
Pastoral Care Encounter/Spiritual Assessment Type of Contact [] Declined manager immunology visit [] Patient/Family/Request visit [] Outpatient visit [] Follow-up visit [] Physician referral [] Code/Alert [x] Routine visit [] Staff referral [] Actively dying [] Patient sleeping [] Family support [] [] Out of room [] Palliative care [] [x] Receiving care in room [] Pre-surgical visit [] Trauma [x] Long length of stay [] ICU visit [] Other: Relational/Emotional Strength [x] Patient feels connected with others/family/visitors/staff [] Distress [] Loneliness/isolation [] Abandonment Spirituality of Patient [x] Person of W[place] [] Attends Synagogue of their [place] [x] Believes in Prayer [] Reads Bible or Religion materials [] There are Spiritual issues to be addressed Overnight [employer]ier Interventions [x] Prayer [x] Active listening [x] Non-anxious presence [x] Spiritual/emotional support [] Crisis/trauma care [x] Spiritual counseling [] Bereavement support [] Provided bereavement packet [] Provided Bible/devotional materials [] Provided toy/stuffed animal, coloring book to patient or family member [] Provided Communion [] Anointing/[place] [] Salvation [x] Completed spiritual assessment [] Other: Impact on Illness or Injury [] Angry [] Fearful [x] Anxious [] Often cries [] Exhaustion [x] Unable to work [] Unable to attend [employer] [] Unable to walk/stand [] Unable to read [] Unable to drive [] Unable to eat/drink [] Unable to sleep [] Unable to be with family [] Patient intubated [] Other: Summary confusion to some dgree, limited bad health problems over the years abbie't do any prodeduires has a good attitude goning home soon Time spent with patient 10 mins
[2020-10-09 11:08] LABS: Glucose Point of Care 315 mg/dL (70-110)
[2020-10-09 11:28] VITALS: BP 151/87; PULSE 83; RESP 17; TEMP 36.4; O2SAT 96
[2020-10-09 11:59] VITALS: BP 151/87; PULSE 83; RESP 17; TEMP 36.4; O2SAT 96
--- NOTE | 2020-10-13 18:56 | PC.RESP ---
Pulmonary Rehab information sent to patient.
== END 2020-10-09 12:00 | disposition home or self-care (01) | DRG 193 ==
LOC: ER 05:15 → MEDSURG 05:41
PROVIDERS: Admitting Provider Internal Medicine; Emergency Provider Emergency Medicine; PCP Nurse Practitioner Family; Visit Provider Internal Medicine
DX: J18.9 Pneumonia, unspecified organism (principal); N18.6 End stage renal disease; G92 Toxic encephalopathy; J44.1 Chronic obstructive pulmonary disease with (acute) exacerbation; I12.0 Hypertensive chronic kidney disease with stage 5 chronic kidney disease or end stage renal disease; T86.12 Kidney transplant failure; N25.81 Secondary hyperparathyroidism of renal origin; D84.821 Immunodeficiency due to drugs; E11.22 Type 2 diabetes mellitus with diabetic chronic kidney disease; Z99.2 Dependence on renal dialysis; I25.10 Atherosclerotic heart disease of native coronary artery without angina pectoris; Z95.5 Presence of coronary angioplasty implant and graft; Z95.1 Presence of aortocoronary bypass graft; I25.2 Old myocardial infarction; K40.90 Unilateral inguinal hernia, without obstruction or gangrene, not specified as recurrent; Z87.891 Personal history of nicotine dependence; T42.6X1A Poisoning by other antiepileptic and sedative-hypnotic drugs, accidental (unintentional), initial encounter; I70.0 Atherosclerosis of aorta; I71.4 Abdominal aortic aneurysm, without rupture; G47.33 Obstructive sleep apnea (adult) (pediatric); Z86.74 Personal history of sudden cardiac arrest; Z86.16 Personal history of COVID-19; Z79.891 Long term (current) use of opiate analgesic; Z79.02 Long term (current) use of antithrombotics/antiplatelets; Z79.4 Long term (current) use of insulin; Z79.82 Long term (current) use of aspirin; D63.1 Anemia in chronic kidney disease; J84.112 Idiopathic pulmonary fibrosis
CPT/HCPCS: 36415; 36416; 36600; 70450; 71045; 71250; 80048; 80053; 80307; 81001; 82140; 82803; 82962; 83880; 84145; 84146; 85025; 85610; 86403; 87040; 87449; 90935; 93005; 94640; 96365; 96367; 96372; 99285; J0456; J0692; J0696; J1644; J1815; J2543; J3370; J7050; J7502; J7512; Q3014